=== PATIENT | male | born 1975 | race Caucasian/White ===

== ENCOUNTER 2018-04-10 07:30 | Inpatient (IN) | payer MEDICARE, MEDICAID ==
--- NOTE | 2018-03-30 17:49 | HP ---
HISTORY AND PHYSICAL: DATE OF ADMISSION/SURGERY: 04/10/18 DATE OF OFFICE VISIT: 03/28/18 SURGEON: Viviana Gutierrez MD * (DICTATED BY DEANN PAGE) PROCEDURE: Left total knee arthroplasty. CHIEF COMPLAINT: Left knee pain. HISTORY OF PRESENT ILLNESS: Mr. Blake is a 42-year-old gentleman with end- stage osteoarthritis of the left knee. He has failed conservative treatment and elected to proceed with a left total knee arthroplasty. PAST MEDICAL HISTORY: Diabetes, hypertension, rheumatoid arthritis, high cholesterol, and depression. PAST SURGICAL HISTORY: Bilateral knee arthroscopies, right ankle reconstruction , right carpal tunnel release, and bilateral ear tubes. CURRENT MEDICATIONS: 1. Enbrel SureClick. 2. Prednisone 1 mg 4 tabs in the morning, 3 tabs at night. 3. Glucosamine chondroitin. 4. Metformin 1000 mg twice a day. 5. Atenolol 50 mg twice a day. 6. Dicyclomine 20 mg 3 times a day. 7. Omeprazole 20 mg daily. 8. Simvastatin 40 mg daily. 9. Tramadol 50 mg 4 times a day as needed. 10. Lisinopril 5 mg every day. 11. Lantus 100 units as directed. 12. Calcium with vitamin D. 13. Multivitamin. 14. Gabapentin 300 mg daily. ALLERGIES: No known drug allergies. FAMILY HISTORY: Diabetes, cancer, heart disease, and rheumatoid arthritis. SOCIAL HISTORY: This is a 42-year-old gentleman. He lives alone. He is a former smoker, quit years ago. He denies the use of drugs or alcohol. REVIEW OF SYSTEMS: A complete 14-point review of systems was reviewed with the patient, was positive for diabetes and a history of MRSA infection in his right lower leg after a tattoo approximately 20 years ago. He denies a history of DVT , PE, hepatitis, HIV, or anesthesia problems. PHYSICAL EXAMINATION GENERAL: He is well developed, well nourished, in no acute distress. VITAL SIGNS: He stands 65 inches tall, weighs 170 pounds. His blood pressure is 128/80, his heart rate is 72. HEENT: Normocephalic, atraumatic. NECK: Supple. No palpable lymph nodes. PULMONARY: Lungs are clear to auscultation bilaterally. CARDIO: Regular rate and rhythm. Strong S1, S2. ABDOMEN: Soft, nontender, nondistended. MUSCULOSKELETAL: Left lower extremity: The skin is intact. There are no open wounds or abrasions. He has moderate joint effusion. He has a 15-degree valgus deformity of both knees. There is MCL laxity and his range of motion is 5 to 115 degrees of flexion. He has a 2+ dorsalis pedis pulse, intact sensation. His lower extremity muscle group strengths are intact at 5/5. NEUROLOGICAL: He is alert and oriented x3. ASSESSMENT AND PLAN: Mr. Blake is a 42-year-old gentleman with end-stage osteoarthritis of the left knee. He has failed conservative treatment and elected to proceed with a left total knee arthroplasty, which is scheduled for 04/10/[address] Gutierrez discussed the risks and benefits of the surgery at today's visit and all of his questions were answered. He will follow up with Dr. Gutierrez 2 weeks after the surgery. We will use TXA for this patient. DEANN PAGE [id number]/[facility] #: [id number]
[~2018-04-10 07:30] MED LIST: Buffered Lidocaine 0.9% SYRIN* 5 ML/SYR SYRINGE INTRADERM ONE
--- OUTSIDE RECORDS SUMMARY | 2018-04-10 08:46 | XMS REPORT ---
:1975 External Reference #:[id number] Author Organization [facility] 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 Loader Unavailable Malika Myers NP Primary Care Physician Unavailable Payers Type Date Identification Numbers Payment Provider Subscriber Medicare Primary Effective: Policy Number: Medicare Humberto Blake 1996 [id number] Group Name: Medicare [address] PayID: [id number] [place] [address] Medicaid Policy Number: [id number] Medicaid Humberto Blake Group Name: 1 1 [address] PayID: [id number] [place] [address] Problems Date Description Provider Status Onset: 07/08/2003 Rheumatoid arthritis Active Onset: 04/22/2013 Type 2 diabetes mellitus 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 Myers [employer]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 Active Onset: 05/21/2013 Hyperlipidemia Malika Myers [employer] M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 Active Onset: 05/21/2013 Essential hypertension Malika Myers, [employer] M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 Active Onset: 07/08/2003 Enthesopathy Active Onset: 05/27/2013 Osteoporosis Malika Myers, [employer] M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 Active Onset: 04/25/2016 Vesicular eczema of hands and/or Malika Myers FNP Active feet Onset: 08/04/2016 Mallet finger Geraldine Peraza PA Active Onset: 10/11/2017 Liver enzymes abnormal Malika Myers [employer] M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 Active Note: Lab: 10/09/17 - Comp Metabolic Panel Onset: 12/24/2017 Anabolic steroids adverse reaction Malika Myers FNP Active Note: self treating with testosterone Onset: 01/01/2018 Inflammatory disorder of penis Layne Wetzel M.D. Active Onset: 11/20/2017 Cellulitis and abscess of trunk Layne Wetzel M.D. 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 Cigarette Use Quit ETOH Use Rarely consumes alcohol Smoking Patient is a former smoker Recreational Drug Use Denies Drug Use Smoking Quit 2009 Allergies, Adverse Reactions, Alerts Date Description Reaction Status Severity Comments 12/12/2014 NKDA active Medications Medication Date Status Form Strength Qnty SIG Indications Ordering Provider BD Pen 01/01/ Active 5mm 100un Use With Lucia, Needle/Mini/Ult 2018 its Lantus Jenniferl rafine/31G X Insulin FLAKITA cuevasP 09/29" 31G X Atenolol 06/12/ Active Tablets 25mg 180ta 2 by mouth Lucia, 2016 bs every day Carolinaniferl FLAKITA cuevasP Accu-Chek 07/27/ Active Misc 102un use twice Lucia Fastclix 2016 its daily Jenniferl Lancets FLAKITA cuevasP BD Pen 07/08/ Active Misc 31G X 5 100un use with Closmin, Needle/Mini/Ult 2015 mm its lantus Jenniferl rafine/31G X insulin eigh, [employer] M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 09/29" Lantus Solostar 12/03/ Active Solution 100Unit/M 9000u 6 units in Jimmy2013 Pen-Inject L nits am Jenniferl faith [employer] M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 Simvastatin 05/01/ Active Tablets 40mg 90tab Take 1 E78.2 Lucia2012 s Tablet By Jenniferl Mouth Every eigh, [employer] M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 Day Metformin HCL 05/01/ Active Tablets 1000mg 180ta 1 By Mouth E11.9 Cl , 2012 bs Twice A Day Jenniferl eigh, [employer] M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 Tramadol HCL / Active Tablets 50mg 60tab 1/2 to 1 M06.9 Clune, s tablet as Jenniferl needed for eigh, [employer] M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 pain by mouth every 6 hours Reference #: [id number] Cinnamon / Active Tablets 500mg 2 by mouth Unknown 0000 twice a day Calcium / Active Tablets 500mg 1 by mouth Unknown 0000 every day Accu-Chek Nuria / Active Strips 100un check bs Clune, Plus 0000 its 1-2 times a Jenniferl day eigh, [employer] M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 Enbrel / Active Solution 50mg/ml Adm 1 ML SC Unknown Sureclick 0000 Auto-Inject Q WK Glucosamine / Active Capsules 1500Com using OTC Unknown Chondroitin 1500 Complex Ibuprofen / Active Tablets 600mg , MD Aidan Betamethasone / Active Cream 0.1% 45uni Apply To Clune, Valerate ts Hands Twice Jenniferl Daily eigh, [employer] M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 Omeprazole / Active Capsules DR 20mg 90cap Take 1 Cl s Capsule By Jenniferl Mouth Daily eigh, [employer] M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 Gabapentin / Active Capsules 300mg 270ca 1 by mouth Cl ps three times Jenniferl a day eigh, [employer] M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 Dicyclomine HCL / Active Tablets 20mg 90tab take 1 Cl s tablet by Jenniferl mouth three eigh, [employer] M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 times daily as needed for intestinal spasm mdd 3 Prednisone / Active Tablets 1mg 3in am,3 in Clune, pm Jenniferl eigh, [employer] M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 Bactrim DS 11/20/ Hx Tablets 800-160mg 10tab 1 tab by L02.214 Damari, 2017 - s mouth twice Mahmoud, 12/01/ a day M.D. 2018 Cephalexin 11/17/ Hx Tablets 500mg 20tab one by L03.314 Lucia, 2017 - s mouth twice Jenniferl 11/27/ a day x 10 eigh, [employer]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 2018 days Betamethasone 04/25/ Hx Cream 0.1% 45gm apply to Clune, Valerate 2015 - hands twice Jenniferl 08/03/ daily eigh, [employer]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 2017 Mometasone 03/16/ Hx Suspension 50mcg/Act 17gm one spray H69.91 Lucia Furoate 2016 - each Jenniferl 03/16/ nostril eigh, [employer]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 2016 every day - Fluticasone 03/16/ Hx Suspension 50mcg/Act 1unit 1 [place] H69.91 Lucia Propionate 2016 - s Each Jenniferl 10/24/ Nostril eigh, [employer]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 2017 Twice A Day Amoxicillin/Cla 03/04/ Hx Tablets 875-125mg 20tab one by H65.01 Lucia vulanate 2016 - s mouth twice Jenniferl Potassium 03/16/ a day x 10 eigh, [employer] M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 2016 days *in place of ciprodex ear drops* Ciprodex 03/02/ Hx Suspension 0.3-0.1% QS 4 drops in H65.01 Lucia, 2016 - the right Jenniferl 03/04/ ear four eigh, [facility] 2016 times a day x 7 days Betamethasone 08/19/ Hx Ointment 0.05% 45uni apply twice Gu, Dipropionate 2015 - ts a day Kiki 12/15/ MD 2015 Accu-Chek 12/03/ Hx Misc 100un use once a Brittanie Multiclix 2013 - its day as Kiki Gracia 12/15/ needed , MD Stevens Accu-Chek Nuria 20/ Hx Kit w/Device 1unit use to test Ash Gu 2013 - s RAJWINDER Swanson 12/15/ Dx:250.00 MD Stevens Accu-Chek Nuria 20/ Hx Strips 100un check BS Brittanie Plus 2013 - its 1-2 times a Kiki 12/15/ day , MD Stevens Lisinopril 12/03/ Hx Tablets 5mg 90tab 1 By Mouth Lucia 2013 - s Every Day Jenniferl 11/13/ eigh, [employer] M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 2018 Prednisone 00/ Hx Tablets 3mg 90tab 4 mg in am Unknown 0000 - s and 3 mg at /05/ pm 2017 Leflunomide / Hx Tablets 20mg 1 po qd Unknown 0000 - 2017 Prednisone / Hx Tablets 2mg 30tab 3 po qpm Unknown 0000 - s 2017 Turmeric / Hx Capsules 500mg using over Unknown 0000 - the counter 2016 Humira Pen / Hx PNKT 40mg/0.8M Aubrey, 0000 - L Zsofia, [employer]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 2016 Azithromycin / Hx Tablets 500mg TK 1 T PO Unknown 0000 - qd For 5 Days 2016 Fluticasone / Hx Suspension 50mcg/Act Shake LQ Unknown Propionate 0000 - And U 1 SPR 05/24/ Ien bid 2016 Amoxicillin/Cla / Hx Tablets 875-125mg TK 1 T PO Unknown vulanate 0000 - bid For 10 Potassium Days In 2017 Place Of Ciprodex Ear Drops Atenolol / Hx Tablets 50mg 180ta take 1 Clune, 0000 - bs tablet by Theodore 06/12/ mouth twice eigh, [employer] M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 2017 daily Lisinopril / Hx Tablets 5mg TK 1 T PO Unknown 0000 - qd 2017 Vital Signs Date Vital Result Comment 03/21/2018 BP Systolic Sitting Left Arm 126 mmHg BP Diastolic Sitting Left Arm 84 mmHg Heart Rate 68 /min Respiratory Rate 18 /min Height 65 inches 5'5" Weight 152.12 lb BMI (Body Mass Index) 25.3 kg/m2 BSA (Body Surface Area) 1.76 m2 [place] body weight in kilograms 62 02/12/2018 BP Systolic Sitting Left Arm 126 mmHg BP Diastolic Sitting Left Arm 76 mmHg Heart Rate 80 /min Respiratory Rate 18 /min Height 65 inches 5'5" Weight 155.00 lb BMI (Body Mass Index) 25.8 kg/m2 BSA (Body Surface Area) 1.78 m2 [place] body weight in kilograms 62 01/01/2018 BP Systolic 152 mmHg BP Diastolic 89 mmHg Body Temperature 98.9 F Heart Rate 68 /min Respiratory Rate 18 /min Height 65 inches 5'5" Weight 158.00 lb BMI (Body Mass Index) 26.3 kg/m2 BSA (Body Surface Area) 1.79 m2 [place] body weight in kilograms 62 O2 % BldC Oximetry 97 % Pain Level 0 12/01/2017 BP Systolic 148 mmHg BP Diastolic 80 mmHg Body Temperature 99.7 F Heart Rate 78 /min Respiratory Rate 16 /min Height 65 inches 5'5" Weight 155.00 lb BMI (Body Mass Index) 25.8 kg/m2 BSA (Body Surface Area) 1.78 m2 [place] body weight in kilograms 62 O2 % BldC Oximetry 96 % Pain Level 0 11/23/2017 BP Systolic 126 mmHg BP Diastolic 76 mmHg Body Temperature 98.6 F Heart Rate 76 /min Respiratory Rate 18 /min Height 65 inches 5'5" [place] body weight in kilograms 62 O2 % BldC Oximetry 97 % Pain Level 4 11/20/2017 BP Systolic 146 mmHg BP Diastolic 84 mmHg Body Temperature 98.2 F Heart Rate 65 /min Respiratory Rate 14 /min Height 65 inches 5'5" Weight 159.00 lb BMI (Body Mass Index) 26.5 kg/m2 BSA (Body Surface Area) 1.79 m2 [place] body weight in kilograms 62 O2 % BldC Oximetry 97 % Pain Level 6 penile wound 11/20/2017 Body Temperature 98.2 F Weight 159.00 lb 11/17/2017 BP Systolic Sitting Left Arm 118 mmHg BP Diastolic Sitting Left Arm 76 mmHg Heart Rate 78 /min Respiratory Rate 18 /min Height 65.5 inches 5'5.50" Weight 158.00 lb BMI (Body Mass Index) 25.9 kg/m2 BSA (Body Surface Area) 1.80 m2 [place] body weight in kilograms 63 11/13/2017 BP Systolic Sitting Left Arm 122 mmHg BP Diastolic Sitting Left Arm 76 mmHg Heart Rate 80 /min Respiratory Rate 18 /min Height 65.5 inches 5'5.50" Weight 163.00 lb BMI (Body Mass Index) 26.7 kg/m2 BSA (Body Surface Area) 1.82 m2 [place] body weight in kilograms 63 05/24/2017 BP Systolic 122 mmHg BP Diastolic 78 mmHg Body Temperature 97.0 F Heart Rate 73 /min Height 65.5 inches 5'5.50" Weight 170.00 lb BMI (Body Mass Index) 27.9 kg/m2 BSA (Body Surface Area) 1.86 m2 [place] body weight in kilograms 63 O2 % BldC Oximetry 96 % 11/21/2016 BP Systolic Sitting Right Arm 120 mmHg BP Diastolic Sitting Right Arm 78 mmHg Heart Rate 72 /min Height 65.5 inches 5'5.50" Weight 177.25 lb BMI (Body Mass Index) 29.0 kg/m2 BSA (Body Surface Area) 1.89 m2 08/04/2016 BP Systolic Sitting Right Arm 146 mmHg BP Diastolic Sitting Right Arm 90 mmHg Heart Rate 66 /min Height 65.5 inches 5'5.50" Weight 174.00 lb BMI (Body Mass Index) 28.5 kg/m2 BSA (Body Surface Area) 1.88 m2 [place] body weight in kilograms 63 08/02/2016 BP Systolic Sitting Left Arm 126 mmHg BP Diastolic Sitting Left Arm 74 mmHg Body Temperature 97.6 F Heart Rate 76 /min Respiratory Rate 18 /min Height 65 inches 5'5" Weight 180.00 lb BMI (Body Mass Index) 30.0 kg/m2 BSA (Body Surface Area) 1.89 m2 [place] body weight in kilograms 62 07/25/2016 BP Systolic Sitting Left Arm 114 mmHg BP Diastolic Sitting Left Arm 70 mmHg Heart Rate 80 /min Respiratory Rate 18 /min Height 65 inches 5'5" Weight 180.00 lb BMI (Body Mass Index) 30.0 kg/m2 BSA (Body Surface Area) 1.89 m2 04/25/2016 BP Systolic Sitting Right Arm 139 mmHg BP Diastolic Sitting Right Arm 78 mmHg Heart Rate 64 /min Respiratory Rate 16 /min Height 65 inches 5'5" Weight 177.00 lb BMI (Body Mass Index) 29.5 kg/m2 BSA (Body Surface Area) 1.88 m2 [place] body weight in kilograms 62 03/16/2016 BP Systolic Sitting Left Arm 122 mmHg BP Diastolic Sitting Left Arm 74 mmHg Heart Rate 75 /min Height 65 inches 5'5" Weight 176.00 lb BMI (Body Mass Index) 29.3 kg/m2 BSA (Body Surface Area) 1.87 m2 [place] body weight in kilograms 62 03/02/2016 BP Systolic Sitting Left Arm 122 mmHg BP Diastolic Sitting Left Arm 72 mmHg Body Temperature 97.1 F Heart Rate 88 /min Respiratory Rate 18 /min Height 65 inches 5'5" Weight 174.00 lb BMI (Body Mass Index) 29.0 kg/m2 BSA (Body Surface Area) 1.86 m2 [place] body weight in kilograms 62 01/22/2016 BP Systolic Sitting Left Arm 118 mmHg BP Diastolic Sitting Left Arm 72 mmHg Heart Rate 76 /min Respiratory Rate 18 /min Height 65 inches 5'5" Weight 171.00 lb BMI (Body Mass Index) 28.5 kg/m2 BSA (Body Surface Area) 1.85 m2 [place] body weight in kilograms 62 01/06/2016 BP Systolic Sitting Left Arm 118 mmHg BP Diastolic Sitting Left Arm 76 mmHg Height 65 inches 5'5" Weight 173.00 lb BMI (Body Mass Index) 28.8 kg/m2 BSA (Body Surface Area) 1.86 m2 04/14/2015 BP Systolic Sitting Left Arm 108 mmHg BP Diastolic Sitting Left Arm 64 mmHg Heart Rate 76 /min Respiratory Rate 19 /min Height 65 inches 5'5" Weight 182.00 lb BMI (Body Mass Index) 30.3 kg/m2 BSA (Body Surface Area) 1.90 m2 12/15/2014 Heart Rate 75 /min Height 65 inches 5'5" Weight 184.00 lb BMI (Body Mass Index) 30.6 kg/m2 BSA (Body Surface Area) 1.91 m2 12/12/2014 BP Systolic Sitting Left Arm 128 mmHg BP Diastolic Sitting Left Arm 74 mmHg Heart Rate 68 /min Respiratory Rate 18 /min Height 65 inches 5'5" Weight 184.00 lb BMI (Body Mass Index) 30.6 kg/m2 BSA (Body Surface Area) 1.91 m2 09/16/2014 BP Systolic 126 mmHg BP Diastolic 80 mmHg Heart Rate 64 /min Respiratory Rate 18 /min Height 65 inches 5'5" Weight 187.00 lb 08/19/2014 BP Systolic 118 mmHg BP Diastolic 72 mmHg Heart Rate 68 /min Respiratory Rate 19 /min Height 65 inches 5'5" Weight 188.00 lb 06/17/2014 BP Systolic 130 mmHg BP Diastolic 90 mmHg Heart Rate 72 /min Height 65 inches 5'5" Weight 187.00 lb 04/14/2014 BP Systolic 118 mmHg BP Diastolic 70 mmHg Heart Rate 68 /min Height 65 inches 5'5" Weight 184.00 lb 03/12/2014 BP Systolic 104 mmHg BP Diastolic 70 mmHg Heart Rate 88 /min Height 65 inches 5'5" Weight 185.00 lb 01/27/2014 BP Systolic 124 mmHg BP Diastolic 80 mmHg Heart Rate 72 /min Height 65 inches 5'5" Weight 184.00 lb 01/07/2014 Height 65 inches 5'5" Weight 180.00 lb 01/01/2014 BP Systolic 130 mmHg BP Diastolic 92 mmHg Heart Rate 80 /min Height 65 inches 5'5" Weight 181.00 lb 12/03/2013 BP Systolic 124 mmHg BP Diastolic 68 mmHg Heart Rate 68 /min Height 65 inches 5'5" Weight 176.00 lb 11/27/2013 Height 65 inches 5'5" Weight 180.00 lb 11/05/2013 Height 65 inches 5'5" Weight 180.00 lb 10/29/2013 BP Systolic 112 mmHg BP Diastolic 78 mmHg Height 65 inches 5'5" Weight 182.00 lb 10/07/2013 BP Systolic 118 mmHg BP Diastolic 76 mmHg Height 65 inches 5'5" Weight 179.00 lb 07/08/2013 BP Systolic 128 mmHg BP Diastolic 76 mmHg Height 65 inches 5'5" Weight 187.00 lb 05/27/2013 BP Systolic 118 mmHg BP Diastolic 73 mmHg Height 65 inches 5'5" Weight 182.00 lb 04/22/2013 BP Systolic 130 mmHg BP Diastolic 84 mmHg Heart Rate 80 /min Respiratory Rate 18 /min Height 65 inches 5'5" Weight 179.00 lb Results Test Date Test Result H/L Range Note Urinalysis Profile 03/28/2018 Urine Color Yellow Urine Appearance Clear Urine Specific Plaza 1.011 1.010-1.030 Urine pH 7.0 5-9 Urine Urobilinogen Negative Negative Urine Ketones Negative Negative Urine Protein Negative Negative Urine Leukocytes Negative Negative Urine Blood Negative Negative Urine Nitrite Negative Negative Urine Bilirubin Negative Negative Urine Glucose Negative Negative Inr/Protime 03/28/2018 Inr 0.92 0.77-1.02 Laboratory test finding 03/28/2018 Activated Partial 35.5 seconds 26.0- 36.3 Thrombo Time Type & Screen 03/28/2018 Patient Blood Type B Positive Antibody Screen NEGATIVE Urine Culture And 03/28/2018 Urine Culture SEE RESULT BELOW 1 Sensitivities Comp Metabolic Panel 03/26/2018 Sodium 141 mmol/L 135-145 Potassium 4.7 mmol/L 3.5-5.0 Chloride 102 mmol/L 101-111 Co2 Carbon Dioxide 33 mmol/L High 22-32 Anion Gap 6 mmol/L 2-11 Glucose 102 mg/dL High 70-100 Blood Urea Nitrogen 19 mg/dL 6-24 Creatinine 0.95 mg/dL 0.67-1.17 BUN/Creatinine Ratio 20.0 8-20 Calcium 9.5 mg/dL 8.6-10.3 Total Protein 6.5 g/dL 6.4-8.9 Albumin 4.4 g/dL 3.2-5.2 Globulin 2.1 g/dL 2-4 Albumin/Globulin Ratio 2.1 1-3 Total Bilirubin 0.30 mg/dL 0.2-1.0 Alkaline Phosphatase 55 U/L 34-104 Alt 29 U/L 7-52 Ast 21 U/L 13-39 Egfr Non- 86.5 >60 Egfr 104.7 >60 2 Laboratory test finding 03/26/2018 C Reactive Protein < 1.00 mg/L <8.01 CBC Auto Diff 03/26/2018 White Blood Count 9.2 10^3/uL 3.5-10.8 Red Blood Count 6.07 10^6/uL High 4.00-5.40 Hemoglobin 16.0 g/dL 14.0-18.0 Hematocrit 48 % 42-52 Mean Corpuscular Volume 79 fL Low 80-94 Mean Corpuscular Hemoglobin 26 pg Low 27-31 Mean Corpuscular HGB Conc 33 g/dL 31-36 Red Cell Distribution Width 16 % High 10.5-15 Platelet Count 171 10^3/uL 150-450 Mean Platelet Volume 10.5 um3 High 7.4-10.4 Abs Neutrophils 4.0 10^3/uL 1.5-7.7 Abs Lymphocytes 3.6 10^3/uL 1.0-4.8 Abs Monocytes 0.9 10^3/uL High 0-0.8 Abs Eosinophils 0.7 10^3/uL High 0-0.6 Abs Basophils 0 10^3/uL 0-0.2 Abs Nucleated RBC 0 10^3/uL Granulocyte % 43.1 % 38-83 Lymphocyte % 39.4 % 25-47 Monocyte % 10.0 % High 0-7 Eosinophil % 7.3 % High 0-6 Basophil % 0.2 % 0-2 Nucleated Red Blood Cells % 0.1 Laboratory test finding 03/26/2018 Erythrocyte Sed Rate 1 mm/Hr 0-14 Urine Dipstick 03/21/2018 Ua Leuko - Negative Ua Nitrite - Negative Ua Urobilinogen 0.2 0.2 - 1.0 E.U./dL Ua Protein - Negative Ua PH 6 Low 6.5-7.5 Ua Blood - Negative Ua Specific Plaza 1.010 1.010-1.030 Ua Ketones - Negative Ua Bilirubin - Negative Ua Glucose - Negative Comp Metabolic Panel 02/23/2018 Sodium 142 mmol/L 135-145 Chloride 105 mmol/L 101-111 Co2 Carbon Dioxide 31 mmol/L 22-32 Glucose 105 mg/dL High 70-100 Blood Urea Nitrogen 22 mg/dL 6-24 Creatinine 1.13 mg/dL 0.67-1.17 BUN/Creatinine Ratio 19.5 8-20 Calcium 9.9 mg/dL 8.6-10.3 Total Protein 6.4 g/dL 6.4-8.9 Albumin 4.6 g/dL 3.2-5.2 Globulin 1.8 g/dL Low 2-4 Albumin/Globulin Ratio 2.6 1-3 Total Bilirubin 0.50 mg/dL 0.2-1.0 Alkaline Phosphatase 48 U/L 34-104 Alt 38 U/L 7-52 Ast 27 U/L 13-39 Egfr Non- 70.8 >60 Egfr 85.7 >60 3 Potassium 5.1 mmol/L High 3.5-5.0 Anion Gap 6 mmol/L 2-11 Laboratory test finding 02/23/2018 C Reactive Protein < 1.00 mg/L <8.01 4 CBC Auto Diff 02/23/2018 White Blood Count 9.8 10^3/uL 3.5-10.8 Red Blood Count 6.19 10^6/uL High 4.00-5.40 Hemoglobin 15.9 g/dL 14.0-18.0 Hematocrit 48 % 42-52 Mean Corpuscular Volume 78 fL Low 80-94 Mean Corpuscular Hemoglobin 26 pg Low 27-31 Mean Corpuscular HGB Conc 33 g/dL 31-36 Red Cell Distribution Width 18 % High 10.5-15 Platelet Count 190 10^3/uL 150-450 Mean Platelet Volume 10.6 um3 High 7.4-10.4 Abs Neutrophils 4.9 10^3/uL 1.5-7.7 Abs Lymphocytes 2.8 10^3/uL 1.0-4.8 Abs Monocytes 1.2 10^3/uL High 0-0.8 Abs Eosinophils 0.7 10^3/uL High 0-0.6 Abs Basophils 0.1 10^3/uL 0-0.2 Abs Nucleated RBC 0 10^3/uL Granulocyte % 50.7 % 38-83 Lymphocyte % 28.6 % 25-47 Monocyte % 12.2 % High 0-7 Eosinophil % 7.2 % High 0-6 Basophil % 1.3 % 0-2 Nucleated Red Blood Cells % 0 Laboratory test finding 02/23/2018 Erythrocyte Sed Rate 1 mm/Hr 0-14 5 Urine Dipstick 02/12/2018 Ua PH 6 Low 6.5-7.[address] 1.010 1.010-1.030 Glycohemoglobin A1c 02/12/2018 Glycohemoglobin (A1c) 6.5 % High 4.2-6.3 6 , 7 eAG 140 mg/dL 6 Laboratory test finding 01/05/2018 Erythrocyte Sed Rate 3 mm/Hr 0-14 CBC Auto Diff 01/05/2018 White Blood Count 9.4 10^3/uL 3.5-10.8 Red Blood Count 6.40 10^6/uL High 4.00-5.40 Hemoglobin 15.4 g/dL 14.0-18.0 Hematocrit 48 % 42-52 Mean Corpuscular Volume 75 fL Low 80-94 Mean Corpuscular Hemoglobin 24 pg Low 27-31 Mean Corpuscular HGB Conc 32 g/dL 31-36 Red Cell Distribution Width 19 % High 10.5-15 Platelet Count 189 10^3/uL 150-450 Mean Platelet Volume 10.6 um3 High 7.4-10.4 Abs Neutrophils 4.2 10^3/uL 1.5-7.7 Abs Lymphocytes 3.4 10^3/uL 1.0-4.8 Abs Monocytes 1.2 10^3/uL High 0-0.8 Abs Eosinophils 0.6 10^3/uL 0-0.6 Abs Basophils 0.1 10^3/uL 0-0.2 Abs Nucleated RBC 0 10^3/uL Granulocyte % 44.2 % 38-83 Lymphocyte % 35.7 % 25-47 Monocyte % 12.4 % High 0-7 Eosinophil % 6.4 % High 0-6 Basophil % 1.3 % 0-2 Nucleated Red Blood Cells % 0 Laboratory test finding 01/05/2018 C Reactive Protein < 1.00 mg/L <8.01 Comp Metabolic Panel 01/05/2018 Sodium 141 mmol/L 135-145 Potassium 4.7 mmol/L 3.5-5.0 Chloride 104 mmol/L 101-111 Co2 Carbon Dioxide 30 mmol/L 22-32 Anion Gap 7 mmol/L 2-11 Glucose 102 mg/dL High 70-100 Blood Urea Nitrogen 22 mg/dL 6-24 Creatinine 1.00 mg/dL 0.67-1.17 BUN/Creatinine Ratio 22.0 High 8-20 Calcium 9.7 mg/dL 8.6-10.3 Total Protein 6.3 g/dL Low 6.4-8.9 Albumin 4.4 g/dL 3.2-5.2 Globulin 1.9 g/dL Low 2-4 Albumin/Globulin Ratio 2.3 1-3 Total Bilirubin 0.50 mg/dL 0.2-1.0 Alkaline Phosphatase 59 U/L 34-104 Alt 43 U/L 7-52 Ast 31 U/L 13-39 Egfr Non- 81.6 >60 Egfr 98.7 >60 8 Testosterone Free & Total 01/05/2018 Free Testosterone ng/dl 31.8 ng/dL 4.46-17.1 9 Testosterone 815 ng/dL 240-950 10 Laboratory test 01/05/2018 Hemoglobin A1c 7.2 % High 4.0-5.6 11 finding (Glyco HGB) Routine Culture W/ 11/20/2017 Gram Stain MODERATE EPITHEL 12, 13 Gram Stain <SEE NOTE> Gram Stain FEW GRAM POSITIV <SEE NOTE> 12, 14 Gram Stain RARE WHITE BLOOD <SEE NOTE> 12, 15 Aerobic Culture MIXED SKIN FAMILIA 12, 16 Quantity MODERATE 12 Ua RFX Micro & Culture II 11/19/2017 Urine Color YELLOW Yellow 17 Urine Clarity CLEAR Clear 17 Urine Glucose - Dipstick NEGATIVE mg/dL Negative 17 Urine Bilirubin - Dipstick NEGATIVE Negative 17 Urine Ketone NEGATIVE mg/dL Negative [address] 1.010 1.010-1.030 17 Urine Blood NEGATIVE Negative 17 Urine PH 6.5 6.5-7.5 17 Urine Protein - Dipstick NEGATIVE mg/dL Negative 17 Urine Urobilinogen - Dipstick 0.2 E.U./dL 0.2-1.0 17 Urine Nitrite - Dipstick NEGATIVE Negative 17 Urine Leuk Esterase NEGATIVE Negative 17 Source: URINE, CLEAN CAT <SEE NOTE> 17, 18 Blood Culture 11/19/2017 Blood Culture Aerobic NO GROWTH: FINAL <SEE NOTE> 17, 19 Blood Culture Anaerobic NO GROWTH: FINAL <SEE NOTE> 17, 20 Comprehensive Metabolic Panel 11/19/2017 Glucose 166 mg/dL High 74-106 17 BUN 20 mg/dL High 7-18 17 Creatinine 1.0 mg/dL 0.6-1.3 17 Glom Filtration Rate, Estimate >60 mL/min >60 17 If >60 mL/min >60 17, 21 BUN/Creat 20.0 ratio 17 Sodium 137 mmol/L 136-145 17 Potassium 4.1 mmol/L 3.5-5.1 17 Chloride 105 mmol/L 98-107 17 Carbon Dioxide 26 mmol/L 21-32 17 Anion Gap 6 mEq/L Low 8-16 17 Calcium 8.8 mg/dL 8.5-10.1 17 Total Protein 7.1 g/dL 6.4-8.2 17 Albumin 3.6 g/dL 3.4-5.0 17 Globulin 3.5 g/dL 1.9-4.3 17 Alb/Glob 1.0 ratio 17 Bilirubin,Total 0.3 mg/dL 0.2-1.0 17 Sgot/Ast 34 U/L 15-37 17 SGPT/Alt 89 U/L High 12-78 17 Alkaline Phosphatase 68 U/L 45-117 17 Lactic Acid 11/19/2017 Lactic Acid 1.7 mmol/L 0.4-1.9 17 Lab Reflex >2.0 for Sepsis? Y 17 CBS W/Automated Diff 11/19/2017 White Blood Count 10.0 K/uL 3.4-10.5 17 Red Blood Count 6.24 M/uL High 4.20-5.80 17 Hemoglobin 14.6 gm/dL 12.8-17.0 17 Hematocrit 45.1 % 38.0-48.0 17 Mean Cell Volume 72.3 fl Low 80.0-96.0 17 Mean Corpuscular HGB 23.4 pg Low 27.0-33.0 17 Mean Corpuscular HGB Conc 32.4 g/dL 31.7-36.0 17 Platelet Count 236 K/uL 155-360 17 Red Cell Distri Width SD 46.0 fl 36-51 17 Red Cell Distri Width %CV 18.7 % High 11.6-15.8 17 Mean Platelet Volume 12.2 fL High 6.6-10.6 17 Neut% 54.2 % 33.0-73.0 17 Lymph % 27.5 % 20.0-42.0 17 [place] % 12.9 % High 0.0-10.0 17 Eo% 4.3 % 0.0-6.6 17 Bas% 1.1 % 0.0-1.1 17 Neut# 5.44 K/uL 1.8-7.0 17 Lymph # 2.76 K/uL 1.0-4.0 17 [place] # 1.30 K/uL High 0.0-0.8 17 Eos # 0.43 K/uL 0.0-0.5 17 Baso # 0.11 K/uL High 0.0-0.1 17 Laboratory test finding 11/19/2017 Slide Review DIFF ORDERED 17 Differential-WBC Confirm 11/19/2017 Total Cells Counted 100 #CELLS 17 Band% 7 % 0-8 17 Neutrophils% 51 % 33-73 17 Lymph% 24 % 20-42 17 Monocyte% 13 % High 0-10 17 Eosinophil% 3 % 0-5 17 Basophil% 2 % 0-2 17 Platelet Estimate NORMAL 17 Anisocytosis 0-1+ 17 Microcytosis 1+ 17 Ovalocytes 0-1+ 17 Blood Culture 11/19/2017 Blood Culture Aerobic NO GROWTH: FINAL <SEE NOTE> 17, 22 Blood Culture Anaerobic NO GROWTH: FINAL <SEE NOTE> 17, 23 Chlamydia/GC Cyndie, Urine 11/13/2017 Chlamydia Trachomatis,Ur Negative Negative 24 -PCR Neisseria Gonorrhoeae,Ur -PCR Negative Negative 24, 25 Testosterone,Free/Weakly 11/13/2017 Testosterone,Serum >1500 High [id number] 24, 26 Bound ng/dL Testosterone,%Free/Weakly BND 73.2 % High 9.0-46.0 24, 27 Testosterone,Free Weakly Bound (SEE NOTE) ng/dL 40.0-250.0 24, 28 Glycohemoglobin A1c 11/13/2017 Glycohemoglobin (A1c) 7.4 % High 4.2-6.3 24, 29 eAG 166 mg/dL 24 Laboratory test finding 11/07/2017 Erythrocyte Sed Rate 3 mm/Hr 0-14 30 Pathologist Review (SEE NOTE) 31 Manual Differential 11/07/2017 Immature Granulocytes 6 % 0-9 Neutrophil % 47 % 38-83 Band % 6 % 0-8 Lymphocytes % 23 % Low 25-47 Monocytes % 20 % High 0-7 Eosinophils % 2 % 0-6 Basophil % 1 % 0-2 Reactive Lymph % 1 % 0-6 Abs Neutrophils 3.7 10^3/uL 1.5-7.7 Abs Lymphocytes 1.8 10^3/uL 1.0-4.8 Abs Monocytes 1.6 10^3/uL High 0-0.8 Abs Eosinophils 0.2 10^3/uL 0-0.6 Abs Basophils 0.1 10^3/uL 0-0.2 Technical Review Performed By [id number] RBC Morphology Normal Normal CBC Auto Diff 11/07/2017 White Blood Count 7.6 10^3/uL 3.5-10.8 Red Blood Count 6.18 10^6/uL High 4.0-5.4 Hemoglobin 14.6 g/dL 14.0-18.0 Hematocrit 45 % 42-52 Mean Corpuscular Volume 73 fL Low 80-94 32 Mean Corpuscular Hemoglobin 24 pg Low 27-31 Mean Corpuscular HGB Conc 32 g/dL 31-36 Red Cell Distribution Width 18 % High 10.5-15 Abs Neutrophils 4.1 10^3/uL 1.5-7.7 Abs Lymphocytes 1.7 10^3/uL 1.0-4.8 Abs Monocytes 1.3 10^3/uL High 0-0.8 Abs Eosinophils 0.4 10^3/uL 0-0.6 Abs Basophils 0.1 10^3/uL 0-0.2 Abs Nucleated RBC 0 10^3/uL Giant Platelets Present Platelet Count 142 10^3/uL Low 150-450 Mean Platelet Volume 11.5 um3 High 7.4-10.4 Laboratory test finding 11/07/2017 C Reactive Protein 7.91 mg/L High < 5.00 33 Comp Metabolic Panel 11/07/2017 Sodium 136 mmol/L Low 139-145 Potassium 4.2 mmol/L 3.5-5.0 Chloride 101 mmol/L 101-111 Co2 Carbon Dioxide 25 mmol/L 22-32 Anion Gap 10 mmol/L 2-11 Glucose 281 mg/dL High 70-100 Blood Urea Nitrogen 23 mg/dL 6-24 Creatinine 0.99 mg/dL 0.67-1.17 BUN/Creatinine Ratio 23.2 High 8-20 Calcium 9.2 mg/dL 8.6-10.3 Total Protein 6.6 g/dL 6.4-8.9 Albumin 4.4 g/dL 3.2-5.2 Globulin 2.2 g/dL 2-4 Albumin/Globulin Ratio 2.0 1-3 Total Bilirubin 0.20 mg/dL 0.2-1.0 Alkaline Phosphatase 70 U/L 34-104 Alt 88 U/L High 7-52 Ast 62 U/L High 13-39 Egfr Non- 82.5 >60 Egfr 106.1 >60 34 Comp Metabolic Panel 10/09/2017 Sodium 137 mmol/L 133-145 Potassium 4.8 mmol/L 3.5-5.0 Chloride 101 mmol/L 101-111 Co2 Carbon Dioxide 28 mmol/L 22-32 Anion Gap 8 mmol/L 2-11 Glucose 143 mg/dL High 70-100 Blood Urea Nitrogen 14 mg/dL 6-24 Creatinine 0.91 mg/dL 0.67-1.17 BUN/Creatinine Ratio 15.4 8-20 Calcium 9.7 mg/dL 8.6-10.3 Total Protein 6.6 g/dL 6.4-8.9 Albumin 4.5 g/dL 3.2-5.2 Globulin 2.1 g/dL 2-4 Albumin/Globulin Ratio 2.1 1-3 Total Bilirubin 0.40 mg/dL 0.2-1.0 Alkaline Phosphatase 47 U/L 34-104 Alt 60 U/L High 7-52 Ast 44 U/L High 13-39 Egfr Non- 90.9 >60 Egfr 116.9 >60 35 Liver Function Panel 10/09/2017 Direct Bilirubin 0.10 mg/dL 0.03-0.18 Indirect Bilirubin 0.3 mg/dL 0.3-1.0 Iron & Iron Binding Capacity 10/09/2017 Iron 40 g/dL Low 50-212 Unsaturated Iron Binding 457 g/dL Total Iron Binding Capacity 497 g/dL High 250-450 Transferrin 355 mg/dL 203-362 % Iron Saturation 8 % Low 15-55 CBC Auto Diff 10/09/2017 White Blood Count 12.7 10^3/uL High 3.5-10.8 Red Blood Count 5.91 10^6/uL High 4.0-5.4 Hemoglobin 14.0 g/dL 14.0-18.0 Hematocrit 44 % 42-52 Mean Corpuscular Volume 74 fL Low 80-94 Mean Corpuscular Hemoglobin 24 pg Low 27-31 Mean Corpuscular HGB Conc 32 g/dL 31-36 Red Cell Distribution Width 19 % High 10.5-15 Platelet Count 206 10^3/uL 150-450 Mean Platelet Volume 10.4 um3 7.4-10.4 Giant Platelets Present Abs Neutrophils 8.9 10^3/uL High 1.5-7.7 Abs Lymphocytes 1.9 10^3/uL 1.0-4.8 Abs Monocytes 1.3 10^3/uL High 0-0.8 Abs Eosinophils 0.4 10^3/uL 0-0.6 Abs Basophils 0.2 10^3/uL 0-0.2 Abs Nucleated RBC 0 10^3/uL Granulocyte % 70.2 % 38-83 Lymphocyte % 14.9 % Low 25-47 Monocyte % 10.2 % High 0-7 Eosinophil % 3.5 % 0-6 Basophil % 1.2 % 0-2 Nucleated Red Blood Cells % 0 LDL Cholesterol Profile 05/24/2017 Cholesterol 149 mg/dL <200 36, 37 Triglycerides 163 mg/dL High <150 36, 38 HDL Cholesterol 37 mg/dL Low >40 36, 39 LDL-Cholesterol 79 mg/dL < 100 36, 40 Microalbumin,Random Urine 05/24/2017 Microalbumin,Urine < 5.0 mg/L < 20.0 36 Glycohemoglobin A1c 05/24/2017 Glycohemoglobin (A1c) 5.6 % 4.2-6.3 36, 41 eAG 114 mg/dL 36 Glycohemoglobin A1c 11/21/2016 Glycohemoglobin (A1c) 6.9 % High 4.2-6.3 42, 43 eAG 151 mg/dL 42 Quantiferon Gold TB 10/12/2016 M tuberculosis by Quantiferon Negative Negative 44 TB Ag minus Nil Result 0 IU/mL TB Mitogen minus Nil Result > 10.00 IU/mL TB Nil Result 0.02 IU/mL 45 Laboratory test finding 10/10/2016 Hepatitis B Surface Nonreactive Nonreactive 46 Antigen Hepatitis A AB IgM Nonreactive Nonreactive 47 Hepatitis C Antibody Nonreactive Nonreactive 48 Hepatitis B Core IgM Nonreactive Nonreactive 49 Quantiferon Gold TB 10/10/2016 M tuberculosis by Quantiferon TNP () 50 TB Ag minus Nil Result TNP () 51 TB Mitogen minus Nil Result TNP () 52 TB Nil Result TNP () 53 Estimated Average 07/25/2016 Estimated Average 163 Glucose (eAG) Glucose (eAG) Laboratory test finding 07/25/2016 Hemoglobin A1c 7.3 High 4.2-6.3 Glycohemoglobin A1c 07/25/2016 Glycohemoglobin (A1c) 7.3 % High 4.2-6.3 42, 54 eAG 163 mg/dL 42 Glycohemoglobin A1c 04/25/2016 Glycohemoglobin (A1c) 7.2 % High 4.2-6.3 42, 55 eAG 160 mg/dL 42 @[facility] Pat Id: [id number] 42 @[facility] Req #: [id number] Microalbumin,Random Urine 04/25/2016 Microalbumin,Urine < 5.0 mg/L < 20.0 42 @[facility] Pat Id: [id number] [address] Req #: [id number] 42 Basic Metabolic Panel 01/06/2016 Glucose 212 mg/dL High 74-106 BUN 19 mg/dL High 7-18 Creatinine 1.2 mg/dL 0.6-1.3 Glom Filtration Rate, Estimate >60 mL/min >60 If >60 mL/min >60 56 BUN/Creat 15.8 ratio Sodium 135 mmol/L Low 136-145 Potassium 4.4 mmol/L 3.5-5.1 Chloride 103 mmol/L 98-107 Carbon Dioxide 24 mmol/L 21-32 Anion Gap 8 mEq/L 8-16 Calcium 8.7 mg/dL 8.5-10.1 Glycohemoglobin A1c 01/06/2016 Glycohemoglobin (A1c) 7.7 % High 4.2-6.3 57 eAG 174 mg/dL LDL Cholesterol Profile 01/06/2016 Cholesterol 182 mg/dL 150-200 58 Triglycerides 235 mg/dL High 50-150 59 HDL Cholesterol 39 mg/dL Low 60-150 60 LDL-Cholesterol 96 mg/dL 75-100 61 Liver Function Tests 01/06/2016 Total Protein 7.5 g/dL 6.4-8.2 Albumin 3.8 g/dL 3.4-5.0 Globulin 3.7 g/dL 1.9-4.3 Alb/Glob 1.0 ratio Bilirubin,Total 0.2 mg/dL 0.2-1.0 Bilirubin,Direct < 0.1 mg/dL 0.0-0.2 Bilirubin,Indirect 0.1 mg/dL 0.0-0.9 Sgot/Ast 14 U/L Low 15-37 62 SGPT/Alt 32 U/L 12-78 Alkaline Phosphatase 78 U/L 45-117 Comp Metabolic Panel 05/07/2015 Sodium 140 mmol/L 133-145 Potassium 4.2 mmol/L 3.5-5.0 Chloride 102 mmol/L 101-111 Co2 Carbon Dioxide 29 mmol/L 22-32 Anion Gap 9 mmol/L 2-11 Glucose 137 mg/dL High 70-100 Blood Urea Nitrogen 11 mg/dL 6-24 Creatinine 0.70 mg/dL 0.67-1.17 BUN/Creatinine Ratio 15.7 8-20 Calcium 9.8 mg/dL 8.6-10.3 Total Protein 6.6 g/dL 6.4-8.9 Albumin 4.2 g/dL 3.2-5.2 Globulin 2.4 g/dL 2-4 Albumin/Globulin Ratio 1.8 1-3 Total Bilirubin 0.40 mg/dL 0.2-1.0 Alkaline Phosphatase 77 U/L 34-104 Alt 22 U/L 7-52 Ast 20 U/L 13-39 Egfr Non- 124.9 >60 Egfr 160.6 >60 63 Laboratory test finding 05/07/2015 C Reactive Protein 18.99 mg/L High < 5.00 64 CBC Auto Diff 05/07/2015 White Blood Count 15.1 10^3/uL High 4.8-10.8 Red Blood Count 5.53 10^6/uL High 4.0-5.4 Hemoglobin 13.5 g/dL Low 14.0-18.0 Hematocrit 43 % 42-52 Mean Corpuscular Volume 78 fL Low 80-94 Mean Corpuscular Hemoglobin 24 pg Low 27-31 Mean Corpuscular HGB Conc 31 g/dL 31-36 Red Cell Distribution Width 16 % High 10.5-15 Platelet Count 289 10^3/uL 150-450 Mean Platelet Volume 10 um3 7.4-10.4 Abs Neutrophils 11.0 10^3/uL High 1.5-7.7 Abs Lymphocytes 2.1 10^3/uL 1.0-4.8 Abs Monocytes 1.5 10^3/uL High 0-0.8 Abs Eosinophils 0.4 10^3/uL 0-0.6 Abs Basophils 0.1 10^3/uL 0-0.2 Abs Nucleated RBC 0.01 10^3/uL Granulocyte % 72.8 % 38-83 Lymphocyte % 13.6 % Low 25-47 Monocyte % 10.1 % High 1-9 Eosinophil % 2.7 % 0-6 Basophil % 0.8 % 0-2 Nucleated Red Blood Cells % 0.1 Laboratory test finding 05/07/2015 Erythrocyte Sed Rate 22 mm/Hr High 0- 14 Basic Metabolic Panel 04/14/2015 Glucose 137 mg/dL High 74-106 BUN 13 mg/dL 7-18 Creatinine 0.9 mg/dL 0.6-1.3 Glom Filtration Rate, Estimate >60 mL/min >60 If >60 mL/min >60 65 BUN/Creat 14.4 ratio Sodium 137 mmol/L 136-145 Potassium 4.3 mmol/L 3.5-5.1 Chloride 103 mmol/L 98-107 Carbon Dioxide 27 mmol/L 21-32 Anion Gap 7 mEq/L Low 8-16 Calcium 9.2 mg/dL 8.5-10.1 Glycohemoglobin A1c 04/14/2015 Glycohemoglobin (A1c) 8.2 % High 4.2-6.3 66 eAG 189 mg/dL Laboratory test finding 03/16/2015 C Reactive Protein 19.81 mg/L High < 5.00 67 CBC Auto Diff 03/16/2015 White Blood Count 22.3 10^3/uL High 4.8-10.8 Red Blood Count 5.56 10^6/uL High 4.0-5.4 Hemoglobin 13.8 g/dL Low 14.0-18.0 Hematocrit 43 % 42-52 Mean Corpuscular Volume 78 fL Low 80-94 Mean Corpuscular Hemoglobin 25 pg Low 27-31 Mean Corpuscular HGB Conc 32 g/dL 31-36 Red Cell Distribution Width 16 % High 10.5-15 Platelet Count 289 10^3/uL 150-450 Mean Platelet Volume 10 um3 7.4-10.4 Abs Neutrophils 17.7 10^3/uL High 1.5-7.7 Abs Lymphocytes 2.2 10^3/uL 1.0-4.8 Abs Monocytes 1.8 10^3/uL High 0-0.8 Abs Eosinophils 0.3 10^3/uL 0-0.6 Abs Basophils 0.2 10^3/uL 0-0.2 Abs Nucleated RBC 0 10^3/uL Granulocyte % 79.2 % 38-83 Lymphocyte % 10.1 % Low 25-47 Monocyte % 8.2 % 1-9 Eosinophil % 1.5 % 0-6 Basophil % 1.0 % 0-2 Nucleated Red Blood Cells % 0 Laboratory test finding 03/16/2015 Erythrocyte Sed Rate 22 mm/Hr High 0- 14 Comp Metabolic Panel 03/16/2015 Sodium 136 mmol/L 133-145 Potassium 4.4 mmol/L 3.5-5.0 Chloride 100 mmol/L Low 101-111 Co2 Carbon Dioxide 28 mmol/L 22-32 Anion Gap 8 mmol/L 2-11 Glucose 185 mg/dL High 70-100 Blood Urea Nitrogen 16 mg/dL 6-24 Creatinine 0.81 mg/dL 0.67-1.17 BUN/Creatinine Ratio 19.8 8-20 Calcium 9.7 mg/dL 8.6-10.3 Total Protein 6.7 g/dL 6.4-8.9 Albumin 4.3 g/dL 3.2-5.2 Globulin 2.4 g/dL 2-4 Albumin/Globulin Ratio 1.8 1-3 Total Bilirubin 0.20 mg/dL 0.2-1.0 Alkaline Phosphatase 70 U/L 34-104 Alt 17 U/L 7-52 Ast 13 U/L 13-39 Egfr Non- 105.5 >60 Egfr 135.7 >60 68 Laboratory test finding 12/12/2014 Vitamin D Total 25(Oh) 20.5 ng/mL Low 30-50 Hepatitis B Surface Antigen Nonreactive Nonreactive Hepatitis B Core IgM Nonreactive Nonreactive Hepatitis A AB IgM Nonreactive Nonreactive Hepatitis C Antibody Nonreactive Nonreactive Comp Metabolic Panel 12/12/2014 Sodium 138 mmol/L 133-145 Potassium 4.5 mmol/L 3.5-5.0 Chloride 102 mmol/L 101-111 Co2 Carbon Dioxide 27 mmol/L 22-32 Anion Gap 9 mmol/L 2-11 Glucose 99 mg/dL 70-100 Blood Urea Nitrogen 16 mg/dL 6-24 Creatinine 0.79 mg/dL 0.67-1.17 BUN/Creatinine Ratio 20.3 High 8-20 Calcium 9.9 mg/dL 8.6-10.3 Total Protein 6.8 g/dL 6.4-8.9 Albumin 4.5 g/dL 3.2-5.2 Globulin 2.3 g/dL 2-4 Albumin/Globulin Ratio 2.0 1-3 Total Bilirubin 0.30 mg/dL 0.2-1.0 Alkaline Phosphatase 66 U/L 34-104 Alt 17 U/L 7-52 Ast 17 U/L 13-39 Egfr Non- 108.6 >60 Egfr 139.7 >60 69 Laboratory test finding 12/12/2014 C Reactive Protein 21.83 mg/L High < 5.00 70 CBC Auto Diff 12/12/2014 White Blood Count 20.9 10^3/uL High 4.8-10.8 Red Blood Count 5.60 10^6/uL High 4.0-5.4 Hemoglobin 14.0 g/dL 14.0-18.0 Hematocrit 44 % 42-52 Mean Corpuscular Volume 78 fL Low 80-94 Mean Corpuscular Hemoglobin 25 pg Low 27-31 Mean Corpuscular HGB Conc 32 g/dL 31-36 Red Cell Distribution Width 16 % High 10.5-15 Platelet Count 248 10^3/uL 150-450 Mean Platelet Volume 11 um3 High 7.4-10.4 Abs Neutrophils 16.3 10^3/uL High 1.5-7.7 Abs Lymphocytes 2.1 10^3/uL 1.0-4.8 Abs Monocytes 1.8 10^3/uL High 0-0.8 Abs Eosinophils 0.5 10^3/uL 0-0.6 Abs Basophils 0.3 10^3/uL High 0-0.2 Abs Nucleated RBC 0.03 10^3/uL Granulocyte % 77.7 % 38-83 Lymphocyte % 10.1 % Low 25-47 Monocyte % 8.6 % 1-9 Eosinophil % 2.3 % 0-6 Basophil % 1.3 % 0-2 Nucleated Red Blood Cells % 0.1 Laboratory test finding 12/12/2014 Erythrocyte Sed Rate 20 mm/Hr High 0- 14 Basic Metabolic Panel 12/12/2014 Glucose 145 mg/dL High 74-106 BUN 16 mg/dL 7-18 Creatinine 0.9 mg/dL 0.6-1.3 Glom Filtration Rate, Estimate >60 mL/min >60 If >60 mL/min >60 71 BUN/Creat 17.7 ratio Sodium 140 mmol/L 136-145 Potassium 4.2 mmol/L 3.5-5.1 Chloride 104 mmol/L 98-107 Carbon Dioxide 25 mmol/L 21-32 Anion Gap 11 mEq/L 8-16 Calcium 9.1 mg/dL 8.5-10.1 Glycohemoglobin A1c 12/12/2014 Glycohemoglobin (A1c) 7.4 % High 4.2-6.3 72 eAG 166 mg/dL LDL Cholesterol Profile 12/12/2014 Cholesterol 176 mg/dL 150-200 73 Triglycerides 252 mg/dL High 50-150 74 HDL Cholesterol 39 mg/dL Low 60-150 75 LDL-Cholesterol 87 mg/dL 75-100 76 Liver Function Tests 12/12/2014 Total Protein 7.4 g/dL 6.4-8.2 Albumin 3.6 g/dL 3.4-5.0 Globulin 3.8 g/dL 1.9-4.3 Alb/Glob 0.9 ratio Bilirubin,Total 0.2 mg/dL 0.2-1.0 Bilirubin,Direct < 0.1 mg/dL 0.0-0.2 Bilirubin,Indirect 0.1 mg/dL 0.0-0.9 Sgot/Ast 23 U/L 15-37 SGPT/Alt 37 U/L 12-78 Alkaline Phosphatase 81 U/L 45-117 Laboratory test finding 12/12/2014 Microalbumin,Random Urine 8.0 mg/L < 20.0 Comp Metabolic Panel 11/17/2014 Sodium 136 mmol/L 133-145 Potassium 4.1 mmol/L 3.5-5.0 Chloride 101 mmol/L 101-111 Co2 Carbon Dioxide 29 mmol/L 22-32 Anion Gap 6 mmol/L 2-11 Glucose 171 mg/dL High 70-100 Blood Urea Nitrogen 21 mg/dL 6-24 Creatinine 0.80 mg/dL 0.67-1.17 BUN/Creatinine Ratio 26.3 High 8-20 Calcium 9.4 mg/dL 8.6-10.3 Total Protein 6.4 g/dL 6.4-8.9 Albumin 4.2 g/dL 3.2-5.2 Globulin 2.2 g/dL 2-4 Albumin/Globulin Ratio 1.9 1-3 Total Bilirubin 0.30 mg/dL 0.2-1.0 Alkaline Phosphatase 64 U/L 34-104 Alt 19 U/L 7-52 Ast 18 U/L 13-39 Egfr Non- 107.1 >60 Egfr 137.7 >60 77 Laboratory test finding 11/17/2014 C Reactive Protein 20.58 mg/L High < 5.00 78 CBC Auto Diff 11/17/2014 White Blood Count 17.1 10^3/uL High 4.8-10.8 Red Blood Count 5.37 10^6/uL 4.0-5.4 Hemoglobin 13.5 g/dL Low 14.0-18.0 Hematocrit 42 % 42-52 Mean Corpuscular Volume 77 fL Low 80-94 Mean Corpuscular Hemoglobin 25 pg Low 27-31 Mean Corpuscular HGB Conc 33 g/dL 31-36 Red Cell Distribution Width 16 % High 10.5-15 Platelet Count 231 10^3/uL 150-450 Mean Platelet Volume 11 um3 High 7.4-10.4 Abs Neutrophils 11.7 10^3/uL High 1.5-7.7 Abs Lymphocytes 2.9 10^3/uL 1.0-4.8 Abs Monocytes 1.8 10^3/uL High 0-0.8 Abs Eosinophils 0.5 10^3/uL 0-0.6 Abs Basophils 0.2 10^3/uL 0-0.2 Abs Nucleated RBC 0.02 10^3/uL Granulocyte % 68.6 % 38-83 Lymphocyte % 17.1 % Low 25-47 Monocyte % 10.4 % High 1-9 Eosinophil % 2.9 % 0-6 Basophil % 1.0 % 0-2 Nucleated Red Blood Cells % 0.1 Laboratory test finding 11/17/2014 Erythrocyte Sed Rate 22 mm/Hr High 0- 14 Basic Metabolic Panel 09/16/2014 Anion Gap 8 mEq/L 8-16 BUN 14 mg/dL 7-18 BUN/Creat 17.5 ratio Calcium 9.9 mg/dL 8.5-10.1 Carbon Dioxide 29 mmol/L 21-32 Chloride 102 mmol/L 98-107 Creatinine 0.8 mg/dL 0.6-1.3 Glom Filtration Rate, Estimate >60 mL/min >60 Glucose 98 mg/dL 74-106 If >60 mL/min >60 79 Potassium 4.2 mmol/L 3.5-5.1 Sodium 139 mmol/L 136-145 Glycohemoglobin A1c 09/16/2014 Glycohemoglobin (A1c) 7.1 % High 4.2-6.3 80 eAG 157 mg/dL Basic Metabolic Panel 06/17/2014 Anion Gap 14 mEq/L 8-16 BUN 15 mg/dL 7-18 BUN/Creat 16.6 ratio Calcium 8.7 mg/dL 8.5-10.1 Carbon Dioxide 26 mmol/L 21-32 Chloride 105 mmol/L 98-107 Creatinine 0.9 mg/dL 0.6-1.3 Glom Filtration Rate, Estimate >60 mL/min >60 Glucose 89 mg/dL 74-106 If >60 mL/min >60 81 Potassium 4.0 mmol/L 3.5-5.1 Sodium 141 mmol/L 136-145 Glycohemoglobin A1c 06/17/2014 Glycohemoglobin (A1c) 7.1 % High 4.2-6.3 82 eAG 157 mg/dL LDL Cholesterol Profile 06/17/2014 Cholesterol 172 mg/dL < 200 83 HDL Cholesterol 41 mg/dL > 40 84 LDL-Cholesterol 86 mg/dL < 100 85 Triglycerides 226 mg/dL < 150 86 Liver Function Tests 06/17/2014 Alb/Glob 1.2 ratio Albumin 3.7 g/dL 3.4-5.0 Alkaline Phosphatase 83 U/L 45-117 Bilirubin,Direct < 0.1 mg/dL 0.0-0.2 Bilirubin,Indirect 0.1 mg/dL 0.0-0.9 Bilirubin,Total 0.2 mg/dL 0.2-1.0 Globulin 3.2 g/dL 1.9-4.3 SGPT/Alt 24 U/L 12-78 Sgot/Ast 15 U/L 15-37 Total Protein 6.9 g/dL 6.4-8.2 Laboratory test finding 05/19/2014 C Reactive Protein 22.49 mg/L High < 5.00 87 Erythrocyte Sed Rate 27 mm/Hr High 0-14 CBC Auto Diff 05/19/2014 Abs Basophils 0.3 10^3/uL High 0-0.2 Abs Eosinophils 0.2 10^3/uL 0-0.6 Abs Lymphocytes 2.1 10^3/uL 1.0-4.8 Abs Monocytes 1.9 10^3/uL High 0-0.8 Abs Neutrophils 15.7 10^3/uL High 1.5-7.7 Abs Nucleated RBC 0.04 10^3/uL Basophil % 1.4 % 0-2 Eosinophil % 1.1 % 0-6 Granulocyte % 77.5 % 38-83 Hematocrit 42 % 42-52 Hemoglobin 13.5 g/dL Low 14.0-18.0 Lymphocyte % 10.4 % Low 25-47 Mean Corpuscular HGB Conc 32 g/dL 31-36 Mean Corpuscular Hemoglobin 26 pg Low 27-31 Mean Corpuscular Volume 80 fL 80-94 Mean Platelet Volume 10 um3 7.4-10.4 Monocyte % 9.6 % High 1-9 Nucleated Red Blood Cells % 0.2 Platelet Count 230 10^3/uL 150-450 Red Blood Count 5.26 10^6/uL 4.0-5.4 Red Cell Distribution Width 15 % 10.5-15 White Blood Count 20.3 10^3/uL High 4.8-10.8 Comp Metabolic Panel 05/19/2014 Albumin 4.1 g/dL 3.2-5.2 Albumin/Globulin Ratio 1.8 1-3 Alkaline Phosphatase 73 U/L 34-104 Alt 17 U/L 7-52 Anion Gap 9 mmol/L 2-11 Ast 15 U/L 13-39 BUN/Creatinine Ratio 20.0 8-20 Blood Urea Nitrogen 16 mg/dL 6-24 Calcium 9.6 mg/dL 8.6-10.3 Chloride 100 mmol/L Low 101-111 Co2 Carbon Dioxide 28 mmol/L 22-32 Creatinine 0.80 mg/dL 0.67-1.17 Egfr 138.4 >60 88 Egfr Non- 107.6 >60 Globulin 2.3 g/dL 2-4 Glucose 129 mg/dL High 70-100 Potassium 4.3 mmol/L 3.5-5.0 89 Sodium 137 mmol/L 133-145 Total Bilirubin 0.30 mg/dL 0.2-1.0 Total Protein 6.4 g/dL 6.4-8.9 Laboratory test finding 03/12/2014 C Reactive Protein 26.57 mg/L High < 5.00 90 Erythrocyte Sed Rate 38 mm/Hr High 0-14 Pathologist Review (See Note) 91 CBC Auto Diff 03/12/2014 Abs Basophils 0.2 10^3/uL 0-0.2 Abs Eosinophils 0.3 10^3/uL 0-0.6 Abs Lymphocytes 2.1 10^3/uL 1.0-4.8 Abs Monocytes 1.5 10^3/uL High 0-0.8 Abs Neutrophils 13.2 10^3/uL High 1.5-7.7 Abs Nucleated RBC 0 10^3/uL Hematocrit 42 % 42-52 Hemoglobin 13.9 g/dL Low 14.0-18.0 Mean Corpuscular HGB Conc 33 g/dL 31-36 Mean Corpuscular Hemoglobin 26 pg Low 27-31 Mean Corpuscular Volume 79 fL Low 80-94 Mean Platelet Volume 10 um3 7.4-10.4 Platelet Count 246 10^3/uL 150-450 Red Blood Count 5.34 10^6/uL 4.0-5.4 Red Cell Distribution Width 16 % High 10.5-15 White Blood Count 17.2 10^3/uL High 4.8-10.8 Comp Metabolic Panel 03/12/2014 Albumin 4.2 g/dL 3.2-5.2 Albumin/Globulin Ratio 1.6 1-3 Alkaline Phosphatase 74 U/L 34-104 Alt 21 U/L 7-52 Anion Gap 8 mmol/L 2-11 Ast 14 U/L 13-39 BUN/Creatinine Ratio 31.9 High 8-20 Blood Urea Nitrogen 22 mg/dL 6-24 Calcium 9.6 mg/dL 8.6-10.3 Chloride 100 mmol/L Low 101-111 Co2 Carbon Dioxide 25 mmol/L 22-32 Creatinine 0.69 mg/dL 0.67-1.17 Egfr 164.2 >60 92 Egfr Non- 127.6 >60 Globulin 2.6 g/dL 2-4 Glucose 215 mg/dL High 70-100 Potassium 4.6 mmol/L 3.7-5.6 Sodium 133 mmol/L 133-145 Total Bilirubin 0.30 mg/dL 0.2-1.0 Total Protein 6.8 g/dL 6.4-8.9 Manual Differential 03/12/2014 Band % 2 % 0-8 Eosinophils % 2 % 0-6 Hypochromasia 1+ Lymphocytes % 12 % Low 25-47 Metamyelocytes % 2 % 0-2 Monocytes % 3 % 0-13 Myelocytes % 1 % 0-1 Neutrophil % 78 % 38-83 Laboratory test finding 03/12/2014 Hemoglobin A1c 8.7 % High Less than 6.0 93 Liver Function Tests 01/01/2014 Alb/Glob 1.1 ratio Albumin 3.8 g/dL 3.5-5.0 Alkaline Phosphatase 79 U/L 50-136 Bilirubin,Direct < 0.1 mg/dL Low 0.1-0.4 Bilirubin,Indirect 0.1 mg/dL 0.0-0.9 Bilirubin,Total 0.2 mg/dL 0.2-1.2 Globulin 3.4 g/dL 1.9-4.3 SGPT/Alt 31 U/L 30-65 Sgot/Ast 13 U/L Low 16-40 Total Protein 7.2 g/dL 6.3-8.0 LDL Cholesterol Profile 01/01/2014 Cholesterol 200 mg/dL 120-200 HDL Cholesterol 49 mg/dL 29-83 LDL-Cholesterol 107 mg/dL 62-185 Triglycerides 219 mg/dL 16-231 Glycohemoglobin A1c 01/01/2014 Glycohemoglobin (A1c) 9.0 % High 4.8-6.0 94 eAG 212 mg/dL Basic Metabolic Panel 01/01/2014 Anion Gap 10 mEq/L 8-16 BUN 22 mg/dL 5-23 BUN/Creat 27.5 ratio Calcium 9.2 mg/dL 8.5-10.1 Carbon Dioxide 27 mEq/L 18-29 Chloride 104 mmol/L 98-107 Creatinine 0.8 mg/dL 0.5-1.4 Glom Filtration Rate, Estimate >60 mL/min >60 Glucose 264 mg/dL High 76-115 If >60 mL/min >60 95 Potassium 4.1 mmol/L 3.5-5.1 Sodium 137 mmol/L 136-145 Laboratory test 10/29/2013 Microalbumin,Random Urine 10.4 mg/L 0.0-18.5 finding Glycohemoglobin A1c 10/07/2013 Glycohemoglobin (A1c) 9.5 % High 4.8-6.0 96 eAG 226 mg/dL Comp Metabolic Panel 09/26/2013 Albumin 4.6 g/dL 3.2-5.2 Albumin/Globulin Ratio 2.0 1-3 Alkaline Phosphatase 67 U/L 34-104 Alt 34 U/L 7-52 Anion Gap 8 mmol/L 2-11 Ast 22 U/L 13-39 BUN/Creatinine Ratio 26.5 High 8-20 Blood Urea Nitrogen 22 mg/dL 6-24 Calcium 9.6 mg/dL 8.6-10.3 Chloride 101 mmol/L 101-111 Co2 Carbon Dioxide 28 mmol/L 22-32 Creatinine 0.83 mg/dL 0.67-1.17 Egfr 132.6 >60 97 Egfr Non- 103.1 >60 Globulin 2.3 g/dL 2-4 Glucose 195 mg/dL High 70-100 Potassium 4.3 mmol/L 3.7-5.6 Sodium 137 mmol/L 133-145 Total Bilirubin 0.30 mg/dL 0.2-1.0 Total Protein 6.9 g/dL 6.4-8.9 CBC Auto Diff 09/26/2013 Abs Basophils 0.1 10^3/uL 0-0.2 Abs Eosinophils 0.2 10^3/uL 0-0.6 Abs Lymphocytes 2.1 10^3/uL 1.0-4.8 Abs Monocytes 1.2 10^3/uL High 0-0.8 Abs Neutrophils 13.1 10^3/uL High 1.5-7.7 Abs Nucleated RBC 0.01 10^3/uL Basophil % 0.6 % 0-2 Eosinophil % 1.1 % 0-6 Granulocyte % 78.5 % 38-83 Hematocrit 45 % 42-52 Hemoglobin 15.0 g/dL 14.0-18.0 Lymphocyte % 12.4 % Low 25-47 Mean Corpuscular HGB Conc 33 g/dL 31-36 Mean Corpuscular Hemoglobin 26 pg Low 27-31 Mean Corpuscular Volume 78 fL Low 80-94 Mean Platelet Volume 10 um3 7.4-10.4 Monocyte % 7.4 % 1-9 Nucleated Red Blood Cells % 0.1 Platelet Count 196 10^3/uL 150-450 Red Blood Count 5.79 10^6/uL High 4.0-5.4 Red Cell Distribution Width 15 % 10.5-15 White Blood Count 16.7 10^3/uL High 4.8-10.8 Laboratory test finding 09/26/2013 C Reactive Protein 9.32 mg/L High < 5.00 98 Erythrocyte Sed Rate 11 mm/Hr 0-14 Laboratory test finding 07/08/2013 Hemoglobin A1c 9.6 % High Less than 6.0 99 Vitamin D 1,25-Dihydroxy 71 pg/mL 18-64 100 Comp Metabolic Panel 07/08/2013 Albumin 4.1 g/dL 3.6-5.4 Albumin/Globulin Ratio 1.5 1-3 Alkaline Phosphatase 68 U/L 30-110 Alt 34 U/L 14-54 Anion Gap 10.0 mmol/L 2-11 Ast 24 U/L 12-42 BUN/Creatinine Ratio 30.0 High 8-20 Blood Urea Nitrogen 24 mg/dL 6-24 Calcium 9.6 mg/dL 8.1-9.9 Chloride 98 mmol/L Low 101-111 Co2 Carbon Dioxide 28.0 mmol/L 22-32 Creatinine 0.80 mg/dL 0.50-1.40 Egfr 139.1 >60 101 Egfr Non- 108.2 >60 Globulin 2.8 g/dL 2-4 Glucose 255 mg/dL High 70-100 Potassium 4.3 mmol/L 3.5-5.0 Sodium 136 mmol/L 133-145 Total Bilirubin 0.7 mg/dL 0.4-1.5 Total Protein 6.9 g/dL 6.2-8.1 Laboratory test finding 04/24/2013 Hemoglobin A1c 8.5 % High Less than 6.0 102 Comp Metabolic Panel 04/24/2013 Albumin 3.8 g/dL 3.6-5.4 Albumin/Globulin Ratio 1.8 1-3 Alkaline Phosphatase 54 U/L 30-110 Alt 27 U/L 14-54 Anion Gap 9.0 mmol/L 2-11 Ast 18 U/L 12-42 BUN/Creatinine Ratio 20.0 8-20 Blood Urea Nitrogen 16 mg/dL 6-24 Calcium 9.2 mg/dL 8.1-9.9 Chloride 98 mmol/L Low 101-111 Co2 Carbon Dioxide 29.0 mmol/L 22-32 Creatinine 0.80 mg/dL 0.50-1.40 Egfr 139.1 >60 103 Egfr Non- 108.2 >60 Globulin 2.1 g/dL 2-4 Glucose 202 mg/dL High 70-100 Potassium 4.3 mmol/L 3.5-5.0 Sodium 136 mmol/L 133-145 Total Bilirubin 0.5 mg/dL 0.4-1.5 Total Protein 5.9 g/dL Low 6.2-8.1 Lipid Profile (Trig/Chol/HDL) 04/24/2013 Cholesterol 324 mg/dL High Less than 200 Cholesterol/HDL Ratio 5.9 Average High 1-4.44 HDL Cholesterol 55 mg/dL 40-60 104 LDL Cholesterol 200.6 High Less Than 100 105 Triglycerides 342 mg/dL High 40-200 1 SEE RESULT BELOW Name: HUMBERTO BLAKE : [address]: Viviana Gutierrez MD Acct: [id number] Unit: [id number] AGE: 42 Location: PAT Re03/28/18 SEX: M Status: REG REF SPEC: [id number] CRISTIANO: 03/28/18-[address] [facility] [address]: Viviana Gutierrez MD REQ: [id number] RECD: 03/28/18 STATUS: ASHWINI DUBOIS DR: Malika Myers 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 END OF REPORT DEPARTMENT OF PATHOLOGY, [address] [place] [address] Hansel Sutton M.D. Director [facility] # [id number] 2 Because ethnic data is not always readily available, this report includes an eGFR for both -Americans and non- Americans. The National Kidney Disease Education Program (NKDEP) does not endorse the use of the MDRD equation for patients that are not between the ages of 18 and 70, are , have extremes of body size, muscle mass, or nutritional status, or are non- or non-. According to the National Kidney Foundation, irrespective of diagnosis, the stage of the disease is based on the level of kidney function: Stage Description GFR(mL/min/1.73 m(2)) 1 Kidney damage with normal or decreased GFR 90 2 Kidney damage with mild decrease in GFR 60-89 3 Moderate decrease in GFR 30-59 4 Severe decrease in GFR 15-29 5 Kidney failure <15 (or dialysis) 3 Because ethnic data is not always readily available, this report includes an eGFR for both -Americans and non- Americans. The National Kidney Disease Education Program (NKDEP) does not endorse the use of the MDRD equation for patients that are not between the ages of 18 and 70, are , have extremes of body size, muscle mass, or nutritional status, or are non- or non-. According to the National Kidney Foundation, irrespective of diagnosis, the stage of the disease is based on the level of kidney function: Stage Description GFR(mL/min/1.73 m(2)) 1 Kidney damage with normal or decreased GFR 90 2 Kidney damage with mild decrease in GFR 60-89 3 Moderate decrease in GFR 30-59 4 Severe decrease in GFR 15-29 5 Kidney failure <15 (or dialysis) 4 ORDERED 06/29/17 EXPIRES 12/28/17 5 ORDERED 06/29/17 EXPIRES 12/28/17 6 E11.9 7 Elevated levels of HbA1c suggest the need for more aggressive treatment of glycemia. The [place] [employer] recommends that a primary goal of therapy should be a HbA1c of <7% and that physicians should re-evaluate the treatment regimen in patients with HbA1c values consistently >8%. 8 Because ethnic data is not always readily available, this report includes an eGFR for both -Americans and non- Americans. The National Kidney Disease Education Program (NKDEP) does not endorse the use of the MDRD equation for patients that are not between the ages of 18 and 70, are , have extremes of body size, muscle mass, or nutritional status, or are non- or non-. According to the National Kidney Foundation, irrespective of diagnosis, the stage of the disease is based on the level of kidney function: Stage Description GFR(mL/min/1.73 m(2)) 1 Kidney damage with normal or decreased GFR 90 2 Kidney damage with mild decrease in GFR 60-89 3 Moderate decrease in GFR 30-59 4 Severe decrease in GFR 15-29 5 Kidney failure <15 (or dialysis) 9 ADDITIONAL INFORMATION Testing performed by [facility]. This test was developed and its performance characteristics determined by [facility] in a manner consistent with CLIA requirements. This test has not been cleared or approved by the U.S. Food and Drug Administration. 10 ADDITIONAL INFORMATION Testing performed by Liquid Chromatography-Tandem Mass Spectrometry (LC-MS/MS). This test was developed and its performance characteristics determined by [facility] in a manner consistent with CLIA requirements. This test has not been cleared or approved by the U.S. Food and Drug Administration. Test Performed by: [address] [id number] 11 Therapeutic target for the treatment of diabetes mellitus patients is <7% HBA1C, and in selective patients <6.0%. Please refer to [place] [employer] diabetic care guidelines for further information. 12 L02.214 13 MODERATE EPITHELIAL CELLS 14 FEW GRAM POSITIVE COCCI 15 RARE WHITE BLOOD CELLS 16 MIXED SKIN FAMILIA 17 WOUND ON GENITAL AREA 18 URINE, CLEAN CATCH 19 NO GROWTH: FINAL REPORT 20 NO GROWTH: FINAL REPORT 21 Note: Persistent reduction for 3 months or more in an eGFR <60 mL/min/1.73 m2 defines CKD. Patients with eGFR values >/=60 mL/min/1.73 m2 may also have CKD if evidence of persistent proteinuria is present. The original MDRD equation for estimated GFR is not valid for patients less than 18 years of age. Additional information may be found at www.[email or web address]. 22 NO GROWTH: FINAL REPORT 23 NO GROWTH: FINAL REPORT 24 E11.9, R94.5 Z20.2 25 A negative result for either C. trachomatis and/or N. gonorrhoeae does not preclued an infection because results are dependent on adequate specimen collection, absence of inhibitors, and sufficient DNA to be detected. 26 Adult male reference interval is based on a population of healthy nonobese males (BMI <30) between 19 and 39 years old. Reece, et.al. JCEM 2017,102;[id number]. PMID: [id number]. 27 Results verified by repeat testing 28 >999.9 Calculated value greater than reporting limitations. Performed at: - [facility] [address] [id number] Audit Lead: Gisele Milan MD, Phone: [phone] Performed at: - [facility] [address] [id number] Audit Lead: Dayron Lim MD, Phone: [phone] 29 Elevated levels of HbA1c suggest the need for more aggressive treatment of glycemia. The [place] [employer] recommends that a primary goal of therapy should be a HbA1c of <7% and that physicians should re-evaluate the treatment regimen in patients with HbA1c values consistently >8%. 30 ORDERED 06/29/17 EXPIRES 12/28/17 31 RBC indices suggestive of a thalassemia. Recommend correlation with hemoglobin electrophoresis. Reviewed by Katie Fontana MD 32 Consistent with Previous Results Reported on 10/09/17 33 Acute inflammation: >10.00 34 Because ethnic data is not always readily available, this report includes an eGFR for both -Americans and non- Americans. The National Kidney Disease Education Program (NKDEP) does not endorse the use of the MDRD equation for patients that are not between the ages of 18 and 70, are , have extremes of body size, muscle mass, or nutritional status, or are non- or non-. According to the National Kidney Foundation, irrespective of diagnosis, the stage of the disease is based on the level of kidney function: Stage Description GFR(mL/min/1.73 m(2)) 1 Kidney damage with normal or decreased GFR 90 2 Kidney damage with mild decrease in GFR 60-89 3 Moderate decrease in GFR 30-59 4 Severe decrease in GFR 15-29 5 Kidney failure <15 (or dialysis) 35 Because ethnic data is not always readily available, this report includes an eGFR for both -Americans and non- Americans. The National Kidney Disease Education Program (NKDEP) does not endorse the use of the MDRD equation for patients that are not between the ages of 18 and 70, are , have extremes of body size, muscle mass, or nutritional status, or are non- or non-. According to the National Kidney Foundation, irrespective of diagnosis, the stage of the disease is based on the level of kidney function: Stage Description GFR(mL/min/1.73 m(2)) 1 Kidney damage with normal or decreased GFR 90 2 Kidney damage with mild decrease in GFR 60-89 3 Moderate decrease in GFR 30-59 4 Severe decrease in GFR 15-29 5 Kidney failure <15 (or dialysis) 36 I10 E11.9 E78.2 37 Reference Guidelines*: Desirable: ........... < 200 mg/dL Borderline High: ..... 200-239 mg/dL High: ................ >=240 mg/dL * The National Cholesterol Education Program (NCEP) 38 Reference Guidelines*: Normal: ............. < 150 mg/dL Borderline High: .... 150-199 mg/dL High: ............... 200-499 mg/dL Very High: .......... > 500 mg/dL * Source: National Cholesterol Education Program (NCEP) 39 Reference Guidelines*: Low HDL: ..... < 40 mg/dL Normal: ..... 40-60 mg/dL Desirable: ... > 60 mg/dL *The National Cholesterol Education Program(NCEP) 40 Reference Guidelines*: Optimal:........... <100 mg/dL Near Optimal....... 100-129 mg/dL Borderline High.... 130-159 mg/dL High............... 160-189 mg/dL Very High.......... >=190 mg/dL * Source: National Cholesterol Education Program (NCEP) 41 Elevated levels of HbA1c suggest the need for more aggressive treatment of glycemia. The [place] [employer] recommends that a primary goal of therapy should be a HbA1c of <7% and that physicians should re-evaluate the treatment regimen in patients with HbA1c values consistently >8%. 42 E11.9 43 Elevated levels of HbA1c suggest the need for more aggressive treatment of glycemia. The [place] [employer] recommends that a primary goal of therapy should be a HbA1c of <7% and that physicians should re-evaluate the treatment regimen in patients with HbA1c values consistently >8%. 44 No interferon-gamma response to M. tuberculosis antigens was detected. Infection with M. tuberculosis is unlikely. A negative result alone does not exclude infection with M. tuberculosis. For detailed information regarding test interpretation see: [email or web address] [email or web address] 45 Test Performed by: [address] [address] 46 1x order 47 1x order 48 1x order 49 1x order 50 QuantiFERON-TB Gold In-Tube, B was cancelled on 10/12/2016 at 09:59; One or more of collection tubes was under-filled (<0.8 mL sample). 51 QuantiFERON-TB Gold In-Tube, B was cancelled on 10/12/2016 at 09:59; One or more of collection tubes was under-filled (<0.8 mL sample). 52 QuantiFERON-TB Gold In-Tube, B was cancelled on 10/12/2016 at 09:59; One or more of collection tubes was under-filled (<0.8 mL sample). 53 QuantiFERON-TB Gold In-Tube, B was cancelled on 10/12/2016 at 09:59; One or more of collection tubes was under-filled (<0.8 mL sample). Test Performed by: [address] [id number] 54 Elevated levels of HbA1c suggest the need for more aggressive treatment of glycemia. The [place] [employer] recommends that a primary goal of therapy should be a HbA1c of <7% and that physicians should re-evaluate the treatment regimen in patients with HbA1c values consistently >8%. 55 Elevated levels of HbA1c suggest the need for more aggressive treatment of glycemia. The [place] [employer] recommends that a primary goal of therapy should be a HbA1c of <7% and that physicians should re-evaluate the treatment regimen in patients with HbA1c values consistently >8%. 56 Note: Persistent reduction for 3 months or more in an eGFR <60 mL/min/1.73 m2 defines CKD. Patients with eGFR values >/=60 mL/min/1.73 m2 may also have CKD if evidence of persistent proteinuria is present. The original MDRD equation for estimated GFR is not valid for patients less than 18 years of age. Additional information may be found at www.kdoqi.org. 57 Elevated levels of HbA1c suggest the need for more aggressive treatment of glycemia. The [place] [employer] recommends that a primary goal of therapy should be a HbA1c of <7% and that physicians should re-evaluate the treatment regimen in patients with HbA1c values consistently >8%. 58 Reference Guidelines*: Desirable: ........... < 200 mg/dL Borderline High: ..... 200-239 mg/dL High: ................ >=240 mg/dL * The National Cholesterol Education Program (NCEP) 59 Reference Guidelines*: Normal: ............. < 150 mg/dL Borderline High: .... 150-199 mg/dL High: ............... 200-499 mg/dL Very High: .......... > 500 mg/dL * Source: National Cholesterol Education Program (NCEP) 60 Reference Guidelines*: Low HDL: ..... < 40 mg/dL Normal: ..... 40-60 mg/dL Desirable: ... > 60 mg/dL *The National Cholesterol Education Program(NCEP) 61 Reference Guidelines*: Optimal:........... <100 mg/dL Near Optimal....... 100-129 mg/dL Borderline High.... 130-159 mg/dL High............... 160-189 mg/dL Very High.......... >=190 mg/dL * Source: National Cholesterol Education Program (NCEP) 62 Values below the stated reference ranges of AST and ALT can be seen in normal populations. Clinical correlation is suggested. 63 Because ethnic data is not always readily available, this report includes an eGFR for both -Americans and non- Americans. The National Kidney Disease Education Program (NKDEP) does not endorse the use of the MDRD equation for patients that are not between the ages of 18 and 70, are , have extremes of body size, muscle mass, or nutritional status, or are non- or non-. According to the National Kidney Foundation, irrespective of diagnosis, the stage of the disease is based on the level of kidney function: Stage Description GFR(mL/min/1.73 m(2)) 1 Kidney damage with normal or decreased GFR 90 2 Kidney damage with mild decrease in GFR 60-89 3 Moderate decrease in GFR 30-59 4 Severe decrease in GFR 15-29 5 Kidney failure <15 (or dialysis) 64 Acute inflammation: >10.00 65 Note: Persistent reduction for 3 months or more in an eGFR <60 mL/min/1.73 m2 defines CKD. Patients with eGFR values >/=60 mL/min/1.73 m2 may also have CKD if evidence of persistent proteinuria is present. The original MDRD equation for estimated GFR is not valid for patients less than 18 years of age. Additional information may be found at www.kdoqi.org. 66 Elevated levels of HbA1c suggest the need for more aggressive treatment of glycemia. The [place] [employer] recommends that a primary goal of therapy should be a HbA1c of <7% and that physicians should re-evaluate the treatment regimen in patients with HbA1c values consistently >8%. 67 Acute inflammation: >10.00 68 Because ethnic data is not always readily available, this report includes an eGFR for both -Americans and non- Americans. The National Kidney Disease Education Program (NKDEP) does not endorse the use of the MDRD equation for patients that are not between the ages of 18 and 70, are , have extremes of body size, muscle mass, or nutritional status, or are non- or non-. According to the National Kidney Foundation, irrespective of diagnosis, the stage of the disease is based on the level of kidney function: Stage Description GFR(mL/min/1.73 m(2)) 1 Kidney damage with normal or decreased GFR 90 2 Kidney damage with mild decrease in GFR 60-89 3 Moderate decrease in GFR 30-59 4 Severe decrease in GFR 15-29 5 Kidney failure <15 (or dialysis) 69 Because ethnic data is not always readily available, this report includes an eGFR for both -Americans and non- Americans. The National Kidney Disease Education Program (NKDEP) does not endorse the use of the MDRD equation for patients that are not between the ages of 18 and 70, are , have extremes of body size, muscle mass, or nutritional status, or are non- or non-. According to the National Kidney Foundation, irrespective of diagnosis, the stage of the disease is based on the level of kidney function: Stage Description GFR(mL/min/1.73 m(2)) 1 Kidney damage with normal or decreased GFR 90 2 Kidney damage with mild decrease in GFR 60-89 3 Moderate decrease in GFR 30-59 4 Severe decrease in GFR 15-29 5 Kidney failure <15 (or dialysis) 70 Acute inflammation: >10.00 71 Note: Persistent reduction for 3 months or more in an eGFR <60 mL/min/1.73 m2 defines CKD. Patients with eGFR values >/=60 mL/min/1.73 m2 may also have CKD if evidence of persistent proteinuria is present. The original MDRD equation for estimated GFR is not valid for patients less than 18 years of age. Additional information may be found at www.kdoqi.org. 72 Elevated levels of HbA1c suggest the need for more aggressive treatment of glycemia. The [place] [employer] recommends that a primary goal of therapy should be a HbA1c of <7% and that physicians should re-evaluate the treatment regimen in patients with HbA1c values consistently >8%. 73 Reference Guidelines*: Desirable: ........... < 200 mg/dL Borderline High: ..... 200-239 mg/dL High: ................ >=240 mg/dL * The National Cholesterol Education Program (NCEP) 74 Reference Guidelines*: Normal: ............. < 150 mg/dL Borderline High: .... 150-199 mg/dL High: ............... 200-499 mg/dL Very High: .......... > 500 mg/dL * Source: National Cholesterol Education Program (NCEP) 75 Reference Guidelines*: Low HDL: ..... < 40 mg/dL Normal: ..... 40-60 mg/dL Desirable: ... > 60 mg/dL *The National Cholesterol Education Program(NCEP) 76 Reference Guidelines*: Optimal:........... <100 mg/dL Near Optimal....... 100-129 mg/dL Borderline High.... 130-159 mg/dL High............... 160-189 mg/dL Very High.......... >=190 mg/dL * Source: National Cholesterol Education Program (NCEP) 77 Because ethnic data is not always readily available, this report includes an eGFR for both -Americans and non- Americans. The National Kidney Disease Education Program (NKDEP) does not endorse the use of the MDRD equation for patients that are not between the ages of 18 and 70, are , have extremes of body size, muscle mass, or nutritional status, or are non- or non-. According to the National Kidney Foundation, irrespective of diagnosis, the stage of the disease is based on the level of kidney function: Stage Description GFR(mL/min/1.73 m(2)) 1 Kidney damage with normal or decreased GFR 90 2 Kidney damage with mild decrease in GFR 60-89 3 Moderate decrease in GFR 30-59 4 Severe decrease in GFR 15-29 5 Kidney failure <15 (or dialysis) 78 Acute inflammation: >10.00 79 Note: Persistent reduction for 3 months or more in an eGFR <60 mL/min/1.73 m2 defines CKD. Patients with eGFR values >/=60 mL/min/1.73 m2 may also have CKD if evidence of persistent proteinuria is present. The original MDRD equation for estimated GFR is not valid for patients less than 18 years of age. Additional information may be found at www.[email or web address]. 80 Elevated levels of HbA1c suggest the need for more aggressive treatment of glycemia. The [place] [employer] recommends that a primary goal of therapy should be a HbA1c of <7% and that physicians should re-evaluate the treatment regimen in patients with HbA1c values consistently >8%. 81 Note: Persistent reduction for 3 months or more in an eGFR <60 mL/min/1.73 m2 defines CKD. Patients with eGFR values >/=60 mL/min/1.73 m2 may also have CKD if evidence of persistent proteinuria is present. The original MDRD equation for estimated GFR is not valid for patients less than 18 years of age. Additional information may be found at www.[email or web address]. 82 Elevated levels of HbA1c suggest the need for more aggressive treatment of glycemia. The [place] [employer] recommends that a primary goal of therapy should be a HbA1c of <7% and that physicians should re-evaluate the treatment regimen in patients with HbA1c values consistently >8%. 83 Reference Guidelines*: Desirable: ........... < 200 mg/dL Borderline High: ..... 200-239 mg/dL High: ................ >=240 mg/dL * The National Cholesterol Education Program (NCEP) 84 Reference Guidelines*: Low HDL: ..... < 40 mg/dL Normal: ..... 40-60 mg/dL Desirable: ... > 60 mg/dL *The National Cholesterol Education Program(NCEP) 85 Reference Guidelines*: Optimal:........... <100 mg/dL Near Optimal....... 100-129 mg/dL Borderline High.... 130-159 mg/dL High............... 160-189 mg/dL Very High.......... >=190 mg/dL * Source: National Cholesterol Education Program (NCEP) 86 Reference Guidelines*: Normal: ............. < 150 mg/dL Borderline High: .... 150-199 mg/dL High: ............... 200-499 mg/dL Very High: .......... > 500 mg/dL * Source: National Cholesterol Education Program (NCEP) 87 Acute inflammation: >10.00 88 Because ethnic data is not always readily available, this report includes an eGFR for both -Americans and non- Americans. The National Kidney Disease Education Program (NKDEP) does not endorse the use of the MDRD equation for patients that are not between the ages of 18 and 70, are , have extremes of body size, muscle mass, or nutritional status, or are non- or non-. According to the National Kidney Foundation, irrespective of diagnosis, the stage of the disease is based on the level of kidney function: Stage Description GFR(mL/min/1.73 m(2)) 1 Kidney damage with normal or decreased GFR 90 2 Kidney damage with mild decrease in GFR 60-89 3 Moderate decrease in GFR 30-59 4 Severe decrease in GFR 15-29 5 Kidney failure <15 (or dialysis) 89 Potassium reference range changed effective 05/18/14 90 Acute inflammation: >10.00 91 Leukocytosis with absolute neutrophilia, favor reactive. Reviewed by Katie Fontana MD 92 Because ethnic data is not always readily available, this report includes an eGFR for both -Americans and non- Americans. The National Kidney Disease Education Program (NKDEP) does not endorse the use of the MDRD equation for patients that are not between the ages of 18 and 70, are , have extremes of body size, muscle mass, or nutritional status, or are non- or non-. According to the National Kidney Foundation, irrespective of diagnosis, the stage of the disease is based on the level of kidney function: Stage Description GFR(mL/min/1.73 m(2)) 1 Kidney damage with normal or decreased GFR 90 2 Kidney damage with mild decrease in GFR 60-89 3 Moderate decrease in GFR 30-59 4 Severe decrease in GFR 15-29 5 Kidney failure <15 (or dialysis) 93 Therapeutic target for the treatment of diabetes Mellitus patients is <7% HBA1C, and in selective patients <6.0%.Please refer to [place] [employer] Diabetic care guidelines for further information. 94 A1c value between 5.7% and 6.4% is considered at increased risk for diabetes. A1c value greater than 6.5 % is considered essentially diagnostic for Type II diabetes. Current guidelines recommend a treatment goal of <7% for diabetic patients. This method will measure glycosylated hemoglobin variants, HbS, HbG, HbH, HbWayne, HbC, HbE, etc. Other hemoglobin- opathies may give incorrect results with this test. 95 Note: Persistent reduction for 3 months or more in an eGFR <60 mL/min/1.73 m2 defines CKD. Patients with eGFR values >/=60 mL/min/1.73 m2 may also have CKD if evidence of persistent proteinuria is present. The original MDRD equation for estimated GFR is not valid for patients less than 18 years of age. Additional information may be found at www.kdoqi.org. 96 A1c value between 5.7% and 6.4% is considered at increased risk for diabetes. A1c value greater than 6.5 % is considered essentially diagnostic for Type II diabetes. Current guidelines recommend a treatment goal of <7% for diabetic patients. This method will measure glycosylated hemoglobin variants, HbS, HbG, HbH, HbWayne, HbC, HbE, etc. Other hemoglobin- opathies may give incorrect results with this test. 97 Because ethnic data is not always readily available, this report includes an eGFR for both -Americans and non- Americans. The National Kidney Disease Education Program (NKDEP) does not endorse the use of the MDRD equation for patients that are not between the ages of 18 and 70, are , have extremes of body size, muscle mass, or nutritional status, or are non- or non-. According to the National Kidney Foundation, irrespective of diagnosis, the stage of the disease is based on the level of kidney function: Stage Description GFR(mL/min/1.73 m(2)) 1 Kidney damage with normal or decreased GFR 90 2 Kidney damage with mild decrease in GFR 60-89 3 Moderate decrease in GFR 30-59 4 Severe decrease in GFR 15-29 5 Kidney failure <15 (or dialysis) 98 Acute inflammation: >10.00 In accordance with FDA guideline, CRP is now reported in mg/L, previous reporting was in mg/dL. 99 Therapeutic target for the treatment of diabetes Mellitus patients is <7% HBA1C, and in selective patients <6.0%.Please refer to [place] [employer] Diabetic care guidelines for further information. 10 Test Performed by: [facility], [address] [place] [id number] Electrical Installer: Devon Keller III, M.D. 10 Because ethnic data is not always readily available, this report includes an eGFR for 1 both -Americans and non- Americans. The National Kidney Disease Education Program (NKDEP) does not endorse the use of the MDRD equation for patients that are not between the ages of 18 and 70, are , have extremes of body size, muscle mass, or nutritional status, or are non- or non-. According to the National Kidney Foundation, irrespective of diagnosis, the stage of the disease is based on the level of kidney function: Stage Description GFR(mL/min/1.73 m(2)) 1 Kidney damage with normal or decreased GFR 90 2 Kidney damage with mild decrease in GFR 60-89 3 Moderate decrease in GFR 30-59 4 Severe decrease in GFR 15-29 5 Kidney failure <15 (or dialysis) 10 Therapeutic target for the treatment of diabetes Mellitus patients is <7% HBA1C, and in 2 selective patients <6.0%.Please refer to [place] [employer] Diabetic care guidelines for further information. 10 Because ethnic data is not always readily available, this report includes an eGFR for 3 both -Americans and non- Americans. The National Kidney Disease Education Program (NKDEP) does not endorse the use of the MDRD equation for patients that are not between the ages of 18 and 70, are , have extremes of body size, muscle mass, or nutritional status, or are non- or non-. According to the [employer], irrespective of diagnosis, the stage of the disease is based on the level of kidney function: Stage Description GFR(mL/min/1.73 m(2)) 1 Kidney damage with normal or decreased GFR 90 2 Kidney damage with mild decrease in GFR 60-89 3 Moderate decrease in GFR 30-59 4 Severe decrease in GFR 15-29 5 Kidney failure <15 (or dialysis) 10 HDL Interpretation: Undesirable: High Risk: Less than 40 mg/dL Desirable: Low Risk: Greater 4 than 60 mg/dL 10 LDL Interpretation: Low Risk Optimal Level: LDL Less than 100 mg/dL Near or Above Optimal: 5 LDL 100-129 mg/dL Borderline High Risk: LDL 130-159 mg/dL High Risk: LDL 160 -189 mg/dL Very High Risk: LDL Greater than 189 mg/dL Procedures Date CPT Code Description Status Comment 11/20/2017 69281 I & D Of Abscess/Simple Or Completed Single 05/24/2017 Diabetic Foot Exam Completed 09/15/2016 62849 Apply Splint Finger Static Completed 08/24/2016 50964 Apply Splint Finger Static Completed 08/04/2016 32912 Apply Splint Finger Static Completed 07/25/2016 04538 Removal Foreign Body From Completed External Auditory Canal-W/O Gen. Anesth 03/10/2015 02331 Neuroplasty median nerve at Completed carpal tunnel 03/10/2015 33299 Anesthesia, Lower Arm Surgery Completed (Nerve,Muscle,Tendon,Fascia,Bu rsa) 01/06/2015 89579 Nerve Conduction 7-8 Studies Completed 01/06/2015 77854 Needle Electromyography Completed Complete, Five Or More Muscles Studied 12/15/2014 23621 Radiology, Elbow Complete Completed 10/23/2014 Bone Mineral Density Test Completed OSTEOPOROSIS FROM PREDNISONE - FOLLOWED BY DR. VICTORIA 02/12/[address] Villalobos 02/12/2014 Colonoscopy Completed 08/12/2003 75969 Destruct-Skin Completed Tags/Lesions-Local Anesthesia- 2-14 Lesions 08/12/2003 23617 Destruct-Skin Completed Tags/Lesions-Local Anesthesia - First Lesion 07/07/2003 56836 Destruct-Skin Completed Tags/Lesions-Local Anesthesia- 2-14 Lesions 07/07/2003 26802 Destruct-Skin Completed Tags/Lesions-Local Anesthesia - First Lesion 06/07/2003 04522 EKG Interpretation And Report Completed Only Encounters Type Date Location Provider CPT E/M Dx Office Visit 03/21/2018 10:30a [facility] Olive Malika Myers 24968 Z01.818 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 M25.562 E11.9 Office Visit 02/12/2018 10:00a [facility] Olive Malika Myers [facility] 51826 E11.9 I10 R94.5 M25.562 M25.572 Office Visit 01/01/2018 10:45a [facility] Layne Wetzel M.D. 73497 N48.21 Office Visit 12/01/2017 11:15a [facility] Layne Wetzel M.D. 29032 N48.21 Office Visit 11/23/2017 10:30a [facility] Layne Wetzel M.D. 01103 N48.21 Office Visit 11/20/2017 9:45a [facility] Layne Wetzel M.D. 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 44653 M20.012 Office Visit 12/07/2016 8:45a [facility] Jorge Luis Salinas M.D. 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 86737 M20.012 Office Visit 09/30/2016 9:30a [facility] Jorge Luis Salinas M.D. 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 47284 E11.9 Office Visit 01/06/2016 1:00p Family Medicine Kiki Gu M.D. 51315 E11.9 E78.2 I10 Office Visit 04/14/2015 10:00a Family Medicine Kiki Gu M.D. 08181 E11.9 E78.2 I10 Office Visit 02/20/2015 10:00a [facility] Sushant Geronimo M.D. 42924 354.0 Office Visit 01/08/2015 1:15p [facility] Sushant Geronimo M.D. 85069 354.0 Office Visit 12/15/2014 1:15p [facility] Sushant Geronimo M.D. 12152 719.43 354.0 Office Visit 12/12/2014 10:30a Family Medicine Kiki Gu M.D. 82254 250.00 272.4 401.1 719.42 Plan of Care 03/21/2018 - Lucia Carolinarickleilaniponchojocelyn, FNPZ01.818 Encounter for other preprocedural examinationComments:EKG read by Dr. Tuttle as NSR - no previous on file for comparisionDiscussed continued abstinence from testosteroneExcellent cardiovascular conditioning in relation to ability to walk without SOB or CP 2- 3 [address] and go up 2-3 flights of stairs. Knee pain is his major limiting factor.M25.562 Pain in left kneeComments:ASA classification of 2 for well controlled DM - surgery as [id number] Type 2 diabetes mellitus without complicationsComments:Well controlled based on fasting sugars of 80-100.
--- OUTSIDE RECORDS SUMMARY | 2018-04-10 08:50 | XMS REPORT ---
:1975 External Reference #:[id number] Author Organization [facility] 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 Malika Myers NP Primary Care Physician Unavailable Payers Type Date Identification Numbers Payment Provider Subscriber Medicare Primary Effective: Policy Number: Medicare Aaron Blake 1996 [id number] Group Name: Medicare [address] PayID: [id number] [place] [address] Medicaid Policy Number: [id number] Medicaid Aaron Blake Group Name: 1 1 [address] PayID: [id number] [place] [address] Problems Date Description Provider Status Onset: 07/08/2003 Rheumatoid arthritis Active Onset: 04/22/2013 Type 2 diabetes mellitus Malika Myers [employer] Active Onset: 05/21/2013 Hyperlipidemia Malika Myers [employer] Active Onset: 05/21/2013 Essential hypertension Malika Myers, [employer] Active Onset: 07/08/2003 Enthesopathy Active Onset: 05/27/2013 Osteoporosis Malika Myers [employer] Active Onset: 04/25/2016 Vesicular eczema of hands and/or Malika Myers FNP Active feet Onset: 08/04/2016 Mallet finger Geraldine Peraza PA Active Onset: 10/11/2017 Liver enzymes abnormal Malika Myers [employer] Active Note: Lab: 10/09/17 - Comp Metabolic [...] Lives With Mother Lives With Cousins 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 Cigarette Use Quit ETOH Use Rarely consumes [...] its lantus Jenniferl rafine/31G X insulin eigh, [employer] MA[employer]GER 09/29" Lantus Solostar 12/03/ Active Solution 100Unit/M 9000u 6 units in Jimmy2013 Pen-Inject L nits am Jenniferl faith [employer] Simvastatin 05/01/ Active Tablets 40mg 90tab Take 1 E78.2 Lucia2012 s Tablet By Jenniferl Mouth Every eigh, [employer]GER Day Metformin HCL 05/01/ Active Tablets 1000mg 180ta 1 By Mouth E11.9 Cl , 2012 bs Twice A Day Jenniferl eigh, [employer]GER Tramadol HCL / Active Tablets 50mg 60tab 1/2 to 1 M06.9 Clune, s tablet as Jenniferl needed for eigh, [employer] MA[employer]GER pain by mouth every 6 hours Reference #: [id number] Cinnamon / Active Tablets 500mg 2 by mouth Unknown 0000 twice a day Calcium / Active Tablets 500mg 1 by mouth Unknown 0000 every day Accu-Chek Nuria / Active Strips 100un check bs [place], Plus 0000 its 1-2 times a Jenniferl day eigh, [employer]GER Enbrel / Active Solution 50mg/ml Adm 1 ML SC Unknown Sureclick 0000 Auto-Inject Q WK Glucosamine / Active Capsules 1500Com using OTC Unknown Chondroitin 1500 Complex Ibuprofen / Active Tablets 600mg , MD Aidan Betamethasone / Active Cream 0.1% 45uni Apply To Clune, Valerate ts Hands Twice Jenniferl Daily eigh, [employer]GER Omeprazole / Active Capsules DR 20mg 90cap Take 1 Cl s Capsule By Jenniferl Mouth Daily eigh, [employer]GER Gabapentin / Active Capsules 300mg 270ca 1 by mouth Cl ps three times Jenniferl a day eigh, [employer]GER Dicyclomine HCL / Active Tablets 20mg 90tab take 1 Cl s tablet by Jenniferl mouth three eigh, [employer] MA[employer]GER times daily as needed for intestinal spasm mdd 3 Prednisone / Active Tablets 1mg 3in am,3 in Clune, pm Jenniferl eigh, [employer] MA[employer]GER Bactrim DS 11/20/ Hx Tablets 800-160mg 10tab 1 tab by L02.214 Damari, 2017 - s mouth twice Mahmoud, 12/01/ a day M.D. 2018 Cephalexin 11/17/ Hx Tablets 500mg 20tab one by L03.314 Lucia, 2017 - s mouth twice Jenniferl 11/27/ a day x 10 eigh, [employer]GER 2018 days Betamethasone 04/25/ Hx Cream 0.1% 45gm apply to Clune, Valerate 2015 - hands twice Jenniferl 08/03/ daily eigh, [employer]GER 2017 Mometasone 03/16/ Hx Suspension 50mcg/Act 17gm one spray H69.91 Lucia Furoate 2016 - each Jenniferl 03/16/ nostril eigh, [employer] MA[employer]GER 2016 every day - Fluticasone 03/16/ Hx Suspension 50mcg/Act 1unit 1 [place] H69.91 Lucia Propionate 2016 - s Each Jenniferl 10/24/ Nostril eigh, [employer] MA[employer]GER 2017 Twice A Day Amoxicillin/Cla 03/04/ Hx Tablets 875-125mg 20tab one by H65.01 Lucia vulanate 2016 - s mouth twice Jenniferl Potassium 03/16/ a day x 10 eigh, [employer] MANAGER 2016 days *in place of ciprodex ear drops* Ciprodex 03/02/ Hx Suspension 0.3-0.1% QS 4 drops in H65.01 Lucia, 2016 - the right Jenniferl 03/04/ ear four eigh, [facility] 2016 times a day x [...] - s Every Day Jenniferl 11/13/ eigh, [employer] MA[employer]GER 2018 Prednisone 00/ Hx Tablets 3mg 90tab [...] PNKT 40mg/0.8M Aubrey, 0000 - L Zsofia, [employer] MANAGER 2016 Azithromycin / Hx Tablets 500mg TK [...] tablet by Theodore 06/12/ mouth twice eigh, [employer] MA[employer]GER 2017 daily Lisinopril / Hx Tablets 5mg [...] kg/m2 BSA (Body Surface Area) 1.76 m2 [place] body weight in kilograms 62 02/12/2018 BP Systolic Sitting Left Arm 126 mmHg BP Diastolic Sitting Left Arm 76 mmHg Heart Rate 80 /min Respiratory Rate 18 /min Height 65 inches 5'5" Weight 155.00 lb BMI (Body Mass Index) 25.8 kg/m2 BSA (Body Surface Area) 1.78 m2 [place] body weight in kilograms 62 01/01/2018 BP Systolic 152 mmHg BP Diastolic 89 mmHg Body Temperature 98.9 F Heart Rate 68 /min Respiratory Rate 18 /min Height 65 inches 5'5" Weight 158.00 lb BMI (Body Mass Index) 26.3 kg/m2 BSA (Body Surface Area) 1.79 m2 [place] body weight in kilograms 62 O2 % BldC Oximetry 97 % Pain Level 0 12/01/2017 BP Systolic 148 mmHg BP Diastolic 80 mmHg Body Temperature 99.7 F Heart Rate 78 /min Respiratory Rate 16 /min Height 65 inches 5'5" Weight 155.00 lb BMI (Body Mass Index) 25.8 kg/m2 BSA (Body Surface Area) 1.78 m2 [place] body weight in kilograms 62 O2 % BldC Oximetry 96 % Pain Level 0 11/23/2017 BP Systolic 126 mmHg BP Diastolic 76 mmHg Body Temperature 98.6 F Heart Rate 76 /min Respiratory Rate 18 /min Height 65 inches 5'5" [place] body weight in kilograms 62 O2 % BldC Oximetry 97 % Pain Level 4 11/20/2017 BP Systolic 146 mmHg BP Diastolic 84 mmHg Body Temperature 98.2 F Heart Rate 65 /min Respiratory Rate 14 /min Height 65 inches 5'5" Weight 159.00 lb BMI (Body Mass Index) 26.5 kg/m2 BSA (Body Surface Area) 1.79 m2 [place] body weight in kilograms 62 O2 % [...] kg/m2 BSA (Body Surface Area) 1.80 m2 [place] body weight in kilograms 63 11/13/2017 BP Systolic Sitting Left Arm 122 mmHg BP Diastolic Sitting Left Arm 76 mmHg Heart Rate 80 /min Respiratory Rate 18 /min Height 65.5 inches 5'5.50" Weight 163.00 lb BMI (Body Mass Index) 26.7 kg/m2 BSA (Body Surface Area) 1.82 m2 [place] body weight in kilograms 63 05/24/2017 BP Systolic 122 mmHg BP Diastolic 78 mmHg Body Temperature 97.0 F Heart Rate 73 /min Height 65.5 inches 5'5.50" Weight 170.00 lb BMI (Body Mass Index) 27.9 kg/m2 BSA (Body Surface Area) 1.86 m2 [place] body weight in kilograms 63 O2 % [...] kg/m2 BSA (Body Surface Area) 1.88 m2 [place] body weight in kilograms 63 08/02/2016 BP Systolic Sitting Left Arm 126 mmHg BP Diastolic Sitting Left Arm 74 mmHg Body Temperature 97.6 F Heart Rate 76 /min Respiratory Rate 18 /min Height 65 inches 5'5" Weight 180.00 lb BMI (Body Mass Index) 30.0 kg/m2 BSA (Body Surface Area) 1.89 m2 [place] body weight in kilograms 62 07/25/2016 BP [...] kg/m2 BSA (Body Surface Area) 1.88 m2 [place] body weight in kilograms 62 03/16/2016 BP Systolic Sitting Left Arm 122 mmHg BP Diastolic Sitting Left Arm 74 mmHg Heart Rate 75 /min Height 65 inches 5'5" Weight 176.00 lb BMI (Body Mass Index) 29.3 kg/m2 BSA (Body Surface Area) 1.87 m2 [place] body weight in kilograms 62 03/02/2016 BP Systolic Sitting Left Arm 122 mmHg BP Diastolic Sitting Left Arm 72 mmHg Body Temperature 97.1 F Heart Rate 88 /min Respiratory Rate 18 /min Height 65 inches 5'5" Weight 174.00 lb BMI (Body Mass Index) 29.0 kg/m2 BSA (Body Surface Area) 1.86 m2 [place] body weight in kilograms 62 01/22/2016 BP Systolic Sitting Left Arm 118 mmHg BP Diastolic Sitting Left Arm 72 mmHg Heart Rate 76 /min Respiratory Rate 18 /min Height 65 inches 5'5" Weight 171.00 lb BMI (Body Mass Index) 28.5 kg/m2 BSA (Body Surface Area) 1.85 m2 [place] body weight in kilograms 62 01/06/2016 BP [...] Test Date Test Result H/L Range Note Comp Metabolic Panel 03/26/2018 Sodium 141 mmol/L [...] Egfr Non- 86.5 >60 Egfr 104.7 >60 1 Laboratory test finding 03/26/2018 C Reactive Protein [...] 6.5-7.5 Ua Blood - Negative Ua Specific [place] 1.010 1.010-1.030 Ua Ketones - Negative Ua [...] Egfr Non- 70.8 >60 Egfr 85.7 >60 2 Potassium 5.1 mmol/L High 3.5-5.0 Anion Gap 6 mmol/L 2-11 Laboratory test finding 02/23/2018 C Reactive Protein < 1.00 mg/L <8.01 3 CBC Auto Diff 02/23/2018 White Blood Count [...] 02/23/2018 Erythrocyte Sed Rate 1 mm/Hr 0-14 4 Glycohemoglobin A1c 02/12/2018 Glycohemoglobin (A1c) 6.5 % High 4.2-6.3 5 , 6 eAG 140 mg/dL 5 Urine Dipstick 02/12/2018 Ua PH 6 Low 6.5-7.5 Ua Specific [place] 1.010 1.010-1.030 Laboratory test finding 01/05/2018 Erythrocyte Sed Rate [...] Egfr Non- 81.6 >60 Egfr 98.7 >60 7 Testosterone Free & Total 01/05/2018 Free Testosterone ng/dl 31.8 ng/dL 4.46-17.1 8 Testosterone 815 ng/dL 240-950 9 Laboratory test 01/05/2018 Hemoglobin A1c 7.2 % High 4.0-5.6 10 finding (Glyco HGB) Routine Culture W/ 11/20/2017 Gram Stain MODERATE EPITHEL 11, 12 Gram Stain <SEE NOTE> Gram Stain FEW GRAM POSITIV <SEE NOTE> 11, 13 Gram Stain RARE WHITE BLOOD <SEE NOTE> 11, 14 Aerobic Culture MIXED SKIN FAMILIA 11, 15 Quantity MODERATE 11 Blood Culture 11/19/2017 Blood Culture Aerobic NO GROWTH: FINAL <SEE NOTE> 16, 17 Blood Culture Anaerobic NO GROWTH: FINAL <SEE NOTE> 16, 18 Differential-WBC Confirm 11/19/2017 Total Cells Counted 100 #CELLS 16 Band% 7 % 0-8 16 Neutrophils% 51 % 33-73 16 Lymph% 24 % 20-42 16 Monocyte% 13 % High 0-10 16 Eosinophil% 3 % 0-5 16 Basophil% 2 % 0-2 16 Platelet Estimate NORMAL 16 Anisocytosis 0-1+ 16 Microcytosis 1+ 16 Ovalocytes 0-1+ 16 Laboratory test finding 11/19/2017 Slide Review DIFF ORDERED 16 CBS W/Automated Diff 11/19/2017 White Blood Count 10.0 K/uL 3.4-10.5 16 Red Blood Count 6.24 M/uL High 4.20-5.80 16 Hemoglobin 14.6 gm/dL 12.8-17.0 16 Hematocrit 45.1 % 38.0-48.0 16 Mean Cell Volume 72.3 fl Low 80.0-96.0 16 Mean Corpuscular HGB 23.4 pg Low 27.0-33.0 16 Mean Corpuscular HGB Conc 32.4 g/dL 31.7-36.0 16 Platelet Count 236 K/uL 155-360 16 Red Cell Distri Width SD 46.0 fl 36-51 16 Red Cell Distri Width %CV 18.7 % High 11.6-15.8 16 Mean Platelet Volume 12.2 fL High 6.6-10.6 16 Neut% 54.2 % 33.0-73.0 16 Lymph % 27.5 % 20.0-42.0 16 [place] % 12.9 % High 0.0-10.0 16 Eo% 4.3 % 0.0-6.6 16 Bas% 1.1 % 0.0-1.1 16 Neut# 5.44 K/uL 1.8-7.0 16 Lymph # 2.76 K/uL 1.0-4.0 16 [place] # 1.30 K/uL High 0.0-0.8 16 Eos # 0.43 K/uL 0.0-0.5 16 Baso # 0.11 K/uL High 0.0-0.1 16 Lactic Acid 11/19/2017 Lactic Acid 1.7 mmol/L 0.4-1.9 16 Lab Reflex >2.0 for Sepsis? Y 16 Comprehensive Metabolic Panel 11/19/2017 Glucose 166 mg/dL High 74-106 16 BUN 20 mg/dL High 7-18 16 Creatinine 1.0 mg/dL 0.6-1.3 16 Glom Filtration Rate, Estimate >60 mL/min >60 16 If >60 mL/min >60 16, 19 BUN/Creat 20.0 ratio 16 Sodium 137 mmol/L 136-145 16 Potassium 4.1 mmol/L 3.5-5.1 16 Chloride 105 mmol/L 98-107 16 Carbon Dioxide 26 mmol/L 21-32 16 Anion Gap 6 mEq/L Low 8-16 16 Calcium 8.8 mg/dL 8.5-10.1 16 Total Protein 7.1 g/dL 6.4-8.2 16 Albumin 3.6 g/dL 3.4-5.0 16 Globulin 3.5 g/dL 1.9-4.3 16 Alb/Glob 1.0 ratio 16 Bilirubin,Total 0.3 mg/dL 0.2-1.0 16 Sgot/Ast 34 U/L 15-37 16 SGPT/Alt 89 U/L High 12-78 16 Alkaline Phosphatase 68 U/L 45-117 16 Blood Culture 11/19/2017 Blood Culture Aerobic NO GROWTH: FINAL <SEE NOTE> 16, 20 Blood Culture Anaerobic NO GROWTH: FINAL <SEE NOTE> 16, 21 Ua RFX Micro & Culture II 11/19/2017 Urine Color YELLOW Yellow 16 Urine Clarity CLEAR Clear 16 Urine Glucose - Dipstick NEGATIVE mg/dL Negative 16 Urine Bilirubin - Dipstick NEGATIVE Negative 16 Urine Ketone NEGATIVE mg/dL Negative 16 Urine Specific [place] 1.010 1.010-1.030 16 Urine Blood NEGATIVE Negative 16 Urine PH 6.5 6.5-7.5 16 Urine Protein - Dipstick NEGATIVE mg/dL Negative 16 Urine Urobilinogen - Dipstick 0.2 E.U./dL 0.2-1.0 16 Urine Nitrite - Dipstick NEGATIVE Negative 16 Urine Leuk Esterase NEGATIVE Negative 16 Source: URINE, CLEAN CAT <SEE NOTE> 16, 22 Glycohemoglobin A1c 11/13/2017 Glycohemoglobin (A1c) 7.4 % High 4.2-6.3 23, 24 eAG 166 mg/dL 23 Testosterone,Free/Weakly 11/13/2017 Testosterone,Serum >1500 High 264-916 23, 25 Bound ng/dL Testosterone,%Free/Weakly BND 73.2 % High 9.0-46.0 23, 26 Testosterone,Free Weakly Bound (SEE NOTE) ng/dL 40.0-250.0 23, 27 Chlamydia/GC Cyndie, Urine 11/13/2017 Chlamydia Trachomatis,Ur Negative Negative 23 -PCR Neisseria Gonorrhoeae,Ur -PCR Negative Negative 23, 28 Laboratory test finding 11/07/2017 Erythrocyte Sed Rate 3 mm/Hr 0-14 29 Pathologist Review (SEE NOTE) 30 Manual Differential 11/07/2017 Immature Granulocytes 6 % [...] 0.1 10^3/uL 0-0.2 Technical Review Performed By [id number] RBC Morphology Normal Normal Comp Metabolic Panel 11/07/2017 Sodium 136 mmol/L [...] Egfr Non- 82.5 >60 Egfr 106.1 >60 31 Laboratory test finding 11/07/2017 C Reactive Protein 7.91 mg/L High < 5.00 32 CBC Auto Diff 11/07/2017 White Blood Count 7.6 10^3/uL 3.5-10.8 Red Blood Count 6.18 10^6/uL High 4.0-5.4 Hemoglobin 14.6 g/dL 14.0-18.0 Hematocrit 45 % 42-52 Mean Corpuscular Volume 73 fL Low 80-94 33 Mean Corpuscular Hemoglobin 24 pg Low 27-31 [...] Mean Platelet Volume 11.5 um3 High 7.4-10.4 Comp Metabolic Panel 10/09/2017 Sodium 137 mmol/L [...] Egfr Non- 90.9 >60 Egfr 116.9 >60 34 Liver Function Panel 10/09/2017 Direct Bilirubin 0.10 [...] Cholesterol Profile 05/24/2017 Cholesterol 149 mg/dL <200 35, 36 Triglycerides 163 mg/dL High <150 35, 37 HDL Cholesterol 37 mg/dL Low >40 35, 38 LDL-Cholesterol 79 mg/dL < 100 35, 39 Microalbumin,Random Urine 05/24/2017 Microalbumin,Urine < 5.0 mg/L < 20.0 35 Glycohemoglobin A1c 05/24/2017 Glycohemoglobin (A1c) 5.6 % 4.2-6.3 35, 40 eAG 114 mg/dL 35 Glycohemoglobin A1c 11/21/2016 Glycohemoglobin (A1c) 6.9 % High 4.2-6.3 41, 42 eAG 151 mg/dL 41 Quantiferon Gold TB 10/12/2016 M tuberculosis by Quantiferon Negative Negative 43 TB Ag minus Nil Result 0 IU/mL TB Mitogen minus Nil Result > 10.00 IU/mL TB Nil Result 0.02 IU/mL 44 Laboratory test finding 10/10/2016 Hepatitis B Surface Nonreactive Nonreactive 45 Antigen Hepatitis A AB IgM Nonreactive Nonreactive 46 Hepatitis C Antibody Nonreactive Nonreactive 47 Hepatitis B Core IgM Nonreactive Nonreactive 48 Quantiferon Gold TB 10/10/2016 M tuberculosis by Quantiferon TNP () 49 TB Ag minus Nil Result TNP () 50 TB Mitogen minus Nil Result TNP () 51 TB Nil Result TNP () 52 Estimated Average 07/25/2016 Estimated Average 163 Glucose (eAG) Glucose (eAG) Laboratory test finding 07/25/2016 Hemoglobin A1c 7.3 High 4.2-6.3 Glycohemoglobin A1c 07/25/2016 Glycohemoglobin (A1c) 7.3 % High 4.2-6.3 41, 53 eAG 163 mg/dL 41 Glycohemoglobin A1c 04/25/2016 Glycohemoglobin (A1c) 7.2 % High 4.2-6.3 41, 54 eAG 160 mg/dL 41 @[facility] Pat Id: [id number] 41 @[facility] Req #: [id number] Microalbumin,Random Urine 04/25/2016 Microalbumin,Urine < 5.0 mg/L < 20.0 41 @[facility] Pat Id: [id number] 41 @[facility] Req #: [id number] Basic Metabolic Panel 01/06/2016 Glucose 212 mg/dL High 74-106 BUN 19 mg/dL High 7-18 Creatinine 1.2 mg/dL 0.6-1.3 Glom Filtration Rate, Estimate >60 mL/min >60 If >60 mL/min >60 55 BUN/Creat 15.8 ratio Sodium 135 mmol/L Low 136-145 Potassium 4.4 mmol/L 3.5-5.1 Chloride 103 mmol/L 98-107 Carbon Dioxide 24 mmol/L 21-32 Anion Gap 8 mEq/L 8-16 Calcium 8.7 mg/dL 8.5-10.1 Glycohemoglobin A1c 01/06/2016 Glycohemoglobin (A1c) 7.7 % High 4.2-6.3 56 eAG 174 mg/dL LDL Cholesterol Profile 01/06/2016 Cholesterol 182 mg/dL 150-200 57 Triglycerides 235 mg/dL High 50-150 58 HDL Cholesterol 39 mg/dL Low 60-150 59 LDL-Cholesterol 96 mg/dL 75-100 60 Liver Function Tests 01/06/2016 Total Protein 7.5 g/dL 6.4-8.2 Albumin 3.8 g/dL 3.4-5.0 Globulin 3.7 g/dL 1.9-4.3 Alb/Glob 1.0 ratio Bilirubin,Total 0.2 mg/dL 0.2-1.0 Bilirubin,Direct < 0.1 mg/dL 0.0-0.2 Bilirubin,Indirect 0.1 mg/dL 0.0-0.9 Sgot/Ast 14 U/L Low 15-37 61 SGPT/Alt 32 U/L 12-78 Alkaline Phosphatase 78 [...] Egfr Non- 124.9 >60 Egfr 160.6 >60 62 Laboratory test finding 05/07/2015 C Reactive Protein 18.99 mg/L High < 5.00 63 CBC Auto Diff 05/07/2015 White Blood Count [...] >60 mL/min >60 If >60 mL/min >60 64 BUN/Creat 14.4 ratio Sodium 137 mmol/L 136-145 Potassium 4.3 mmol/L 3.5-5.1 Chloride 103 mmol/L 98-107 Carbon Dioxide 27 mmol/L 21-32 Anion Gap 7 mEq/L Low 8-16 Calcium 9.2 mg/dL 8.5-10.1 Glycohemoglobin A1c 04/14/2015 Glycohemoglobin (A1c) 8.2 % High 4.2-6.3 65 eAG 189 mg/dL Laboratory test finding 03/16/2015 C Reactive Protein 19.81 mg/L High < 5.00 66 CBC Auto Diff 03/16/2015 White Blood Count [...] Egfr Non- 105.5 >60 Egfr 135.7 >60 67 Laboratory test finding 12/12/2014 Vitamin D Total [...] Egfr Non- 108.6 >60 Egfr 139.7 >60 68 Laboratory test finding 12/12/2014 C Reactive Protein 21.83 mg/L High < 5.00 69 CBC Auto Diff 12/12/2014 White Blood Count [...] >60 mL/min >60 If >60 mL/min >60 70 BUN/Creat 17.7 ratio Sodium 140 mmol/L 136-145 Potassium 4.2 mmol/L 3.5-5.1 Chloride 104 mmol/L 98-107 Carbon Dioxide 25 mmol/L 21-32 Anion Gap 11 mEq/L 8-16 Calcium 9.1 mg/dL 8.5-10.1 Glycohemoglobin A1c 12/12/2014 Glycohemoglobin (A1c) 7.4 % High 4.2-6.3 71 eAG 166 mg/dL LDL Cholesterol Profile 12/12/2014 Cholesterol 176 mg/dL 150-200 72 Triglycerides 252 mg/dL High 50-150 73 HDL Cholesterol 39 mg/dL Low 60-150 74 LDL-Cholesterol 87 mg/dL 75-100 75 Liver Function Tests 12/12/2014 Total Protein 7.4 [...] Egfr Non- 107.1 >60 Egfr 137.7 >60 76 Laboratory test finding 11/17/2014 C Reactive Protein 20.58 mg/L High < 5.00 77 CBC Auto Diff 11/17/2014 White Blood Count [...] 98 mg/dL 74-106 If >60 mL/min >60 78 Potassium 4.2 mmol/L 3.5-5.1 Sodium 139 mmol/L 136-145 Glycohemoglobin A1c 09/16/2014 Glycohemoglobin (A1c) 7.1 % High 4.2-6.3 79 eAG 157 mg/dL Basic Metabolic Panel 06/17/2014 Anion Gap 14 mEq/L 8-16 BUN 15 mg/dL 7-18 BUN/Creat 16.6 ratio Calcium 8.7 mg/dL 8.5-10.1 Carbon Dioxide 26 mmol/L 21-32 Chloride 105 mmol/L 98-107 Creatinine 0.9 mg/dL 0.6-1.3 Glom Filtration Rate, Estimate >60 mL/min >60 Glucose 89 mg/dL 74-106 If >60 mL/min >60 80 Potassium 4.0 mmol/L 3.5-5.1 Sodium 141 mmol/L 136-145 Glycohemoglobin A1c 06/17/2014 Glycohemoglobin (A1c) 7.1 % High 4.2-6.3 81 eAG 157 mg/dL LDL Cholesterol Profile 06/17/2014 Cholesterol 172 mg/dL < 200 82 HDL Cholesterol 41 mg/dL > 40 83 LDL-Cholesterol 86 mg/dL < 100 84 Triglycerides 226 mg/dL < 150 85 Liver Function Tests 06/17/2014 Alb/Glob 1.2 ratio Albumin 3.7 g/dL 3.4-5.0 Alkaline Phosphatase 83 U/L 45-117 Bilirubin,Direct < 0.1 mg/dL 0.0-0.2 Bilirubin,Indirect 0.1 mg/dL 0.0-0.9 Bilirubin,Total 0.2 mg/dL 0.2-1.0 Globulin 3.2 g/dL 1.9-4.3 SGPT/Alt 24 U/L 12-78 Sgot/Ast 15 U/L 15-37 Total Protein 6.9 g/dL 6.4-8.2 Laboratory test finding 05/19/2014 C Reactive Protein 22.49 mg/L High < 5.00 86 Erythrocyte Sed Rate 27 mm/Hr High 0-14 [...] Creatinine 0.80 mg/dL 0.67-1.17 Egfr 138.4 >60 87 Egfr Non- 107.6 >60 Globulin 2.3 g/dL 2-4 Glucose 129 mg/dL High 70-100 Potassium 4.3 mmol/L 3.5-5.0 88 Sodium 137 mmol/L 133-145 Total Bilirubin 0.30 mg/dL 0.2-1.0 Total Protein 6.4 g/dL 6.4-8.9 Laboratory test finding 03/12/2014 C Reactive Protein 26.57 mg/L High < 5.00 89 Erythrocyte Sed Rate 38 mm/Hr High 0-14 Pathologist Review (See Note) 90 CBC Auto Diff 03/12/2014 Abs Basophils 0.2 [...] Creatinine 0.69 mg/dL 0.67-1.17 Egfr 164.2 >60 91 Egfr Non- 127.6 >60 Globulin 2.6 g/dL [...] A1c 8.7 % High Less than 6.0 92 Liver Function Tests 01/01/2014 Alb/Glob 1.1 ratio [...] 01/01/2014 Glycohemoglobin (A1c) 9.0 % High 4.8-6.0 93 eAG 212 mg/dL Basic Metabolic Panel 01/01/2014 Anion Gap 10 mEq/L 8-16 BUN 22 mg/dL 5-23 BUN/Creat 27.5 ratio Calcium 9.2 mg/dL 8.5-10.1 Carbon Dioxide 27 mEq/L 18-29 Chloride 104 mmol/L 98-107 Creatinine 0.8 mg/dL 0.5-1.4 Glom Filtration Rate, Estimate >60 mL/min >60 Glucose 264 mg/dL High 76-115 If >60 mL/min >60 94 Potassium 4.1 mmol/L 3.5-5.1 Sodium 137 mmol/L 136-145 Laboratory test 10/29/2013 Microalbumin,Random Urine 10.4 mg/L 0.0-18.5 finding Glycohemoglobin A1c 10/07/2013 Glycohemoglobin (A1c) 9.5 % High 4.8-6.0 95 eAG 226 mg/dL Comp Metabolic Panel 09/26/2013 [...] Creatinine 0.83 mg/dL 0.67-1.17 Egfr 132.6 >60 96 Egfr Non- 103.1 >60 Globulin 2.3 g/dL [...] Reactive Protein 9.32 mg/L High < 5.00 97 Erythrocyte Sed Rate 11 mm/Hr 0-14 Laboratory test finding 07/08/2013 Hemoglobin A1c 9.6 % High Less than 6.0 98 Vitamin D 1,25-Dihydroxy 71 pg/mL 18-64 99 Comp Metabolic Panel 07/08/2013 Albumin 4.1 g/dL 3.6-5.4 Albumin/Globulin Ratio 1.5 1-3 Alkaline Phosphatase 68 U/L 30-110 Alt 34 U/L 14-54 Anion Gap 10.0 mmol/L 2-11 Ast 24 U/L 12-42 BUN/Creatinine Ratio 30.0 High 8-20 Blood Urea Nitrogen 24 mg/dL 6-24 Calcium 9.6 mg/dL 8.1-9.9 Chloride 98 mmol/L Low 101-111 Co2 Carbon Dioxide 28.0 mmol/L 22-32 Creatinine 0.80 mg/dL 0.50-1.40 Egfr 139.1 >60 100 Egfr Non- 108.2 >60 Globulin 2.8 g/dL 2-4 Glucose 255 mg/dL High 70-100 Potassium 4.3 mmol/L 3.5-5.0 Sodium 136 mmol/L 133-145 Total Bilirubin 0.7 mg/dL 0.4-1.5 Total Protein 6.9 g/dL 6.2-8.1 Laboratory test finding 04/24/2013 Hemoglobin A1c 8.5 % High Less than 6.0 101 Comp Metabolic Panel 04/24/2013 Albumin 3.8 g/dL 3.6-5.4 Albumin/Globulin Ratio 1.8 1-3 Alkaline Phosphatase 54 U/L 30-110 Alt 27 U/L 14-54 Anion Gap 9.0 mmol/L 2-11 Ast 18 U/L 12-42 BUN/Creatinine Ratio 20.0 8-20 Blood Urea Nitrogen 16 mg/dL 6-24 Calcium 9.2 mg/dL 8.1-9.9 Chloride 98 mmol/L Low 101-111 Co2 Carbon Dioxide 29.0 mmol/L 22-32 Creatinine 0.80 mg/dL 0.50-1.40 Egfr 139.1 >60 102 Egfr Non- 108.2 >60 Globulin 2.1 g/dL 2-4 Glucose 202 mg/dL High 70-100 Potassium 4.3 mmol/L 3.5-5.0 Sodium 136 mmol/L 133-145 Total Bilirubin 0.5 mg/dL 0.4-1.5 Total Protein 5.9 g/dL Low 6.2-8.1 Lipid Profile (Trig/Chol/HDL) 04/24/2013 Cholesterol 324 mg/dL High Less than 200 Cholesterol/HDL Ratio 5.9 Average High 1-4.44 HDL Cholesterol 55 mg/dL 40-60 103 LDL Cholesterol 200.6 High Less Than 100 104 Triglycerides 342 mg/dL High 40-200 1 Because ethnic data is not always readily [...] 15-29 5 Kidney failure <15 (or dialysis) 2 Because ethnic data is not always [...] 5 Kidney failure <15 (or dialysis) 3 ORDERED 06/29/17 EXPIRES 12/28/17 4 ORDERED 06/29/17 EXPIRES 12/28/17 5 E11.9 6 Elevated levels of HbA1c suggest the need for more aggressive treatment of glycemia. The [employer] recommends that a primary goal of therapy should be a HbA1c of <7% and that physicians should re-evaluate the treatment regimen in patients with HbA1c values consistently >8%. 7 Because ethnic data is not always readily [...] 15-29 5 Kidney failure <15 (or dialysis) 8 ADDITIONAL INFORMATION Testing performed by [facility]. This test was developed and its performance characteristics determined by [facility] in a manner consistent with CLIA requirements. This test has not been cleared or approved by the U.S. Food and Drug Administration. 9 ADDITIONAL INFORMATION Testing performed by Liquid Chromatography-Tandem Mass Spectrometry (LC-MS/MS). This test was developed and its performance characteristics determined by [facility] in a manner consistent with CLIA requirements. This test has not been cleared or approved by the U.S. Food and Drug Administration. Test Performed by: [facility] [address] [place] [address] 10 Therapeutic target for the treatment of diabetes mellitus patients is <7% HBA1C, and in selective patients <6.0%. Please refer to [employer] diabetic care guidelines for further information. 11 L02.214 12 MODERATE EPITHELIAL CELLS 13 FEW GRAM POSITIVE COCCI 14 RARE WHITE BLOOD CELLS 15 MIXED SKIN FAMILIA 16 WOUND ON GENITAL AREA 17 NO GROWTH: FINAL REPORT 18 NO GROWTH: FINAL REPORT 19 Note: Persistent reduction for 3 months or more in an eGFR <60 mL/min/1.73 m2 defines CKD. Patients with eGFR values >/=60 mL/min/1.73 m2 may also have CKD if evidence of persistent proteinuria is present. The original MDRD equation for estimated GFR is not valid for patients less than 18 years of age. Additional information may be found at www.[email or web address].org. 20 NO GROWTH: FINAL REPORT 21 NO GROWTH: FINAL REPORT 22 URINE, CLEAN CATCH 23 E11.9, R94.5 Z20.2 24 Elevated levels of HbA1c suggest the need for more aggressive treatment of glycemia. The [employer] [employer] recommends that a primary goal of therapy should be a HbA1c of <7% and that physicians should re-evaluate the treatment regimen in patients with HbA1c values consistently >8%. 25 Adult male reference interval is based on a population of healthy nonobese males (BMI <30) between 19 and 39 years old. tanner Newell.al. JCEM 2017,102;1288-8459. PMID: [id number]. 26 Results verified by repeat testing 27 >999.9 Calculated value greater than reporting limitations. Performed at: RN - [facility] [id number] Sales Training Coordinator: Gisele Milan MD, Phone: [phone] Performed at: [address] [id number] Sales Training Coordinator: Dayron Lim MD, Phone: [phone] 28 A negative result for either C. trachomatis and/or N. gonorrhoeae does not preclued an infection because results are dependent on adequate specimen collection, absence of inhibitors, and sufficient DNA to be detected. 29 ORDERED 06/29/17 EXPIRES 12/28/17 30 RBC indices suggestive of a thalassemia. Recommend correlation with hemoglobin electrophoresis. Reviewed by Katie Fontana MD 31 Because ethnic data is not always readily [...] 15-29 5 Kidney failure <15 (or dialysis) 32 Acute inflammation: >10.00 33 Consistent with Previous Results Reported on 10/09/17 34 Because ethnic data is not always [...] 5 Kidney failure <15 (or dialysis) 35 I10 E11.9 E78.2 36 Reference Guidelines*: Desirable: ........... < 200 mg/dL Borderline High: ..... 200-239 mg/dL High: ................ >=240 mg/dL * The National Cholesterol Education Program (NCEP) 37 Reference Guidelines*: Normal: ............. < 150 mg/dL Borderline High: .... 150-199 mg/dL High: ............... 200-499 mg/dL Very High: .......... > 500 mg/dL * Source: National Cholesterol Education Program (NCEP) 38 Reference Guidelines*: Low HDL: ..... < 40 mg/dL Normal: ..... 40-60 mg/dL Desirable: ... > 60 mg/dL *The National Cholesterol Education Program(NCEP) 39 Reference Guidelines*: Optimal:........... <100 mg/dL Near Optimal....... 100-129 mg/dL Borderline High.... 130-159 mg/dL High............... 160-189 mg/dL Very High.......... >=190 mg/dL * Source: National Cholesterol Education Program (NCEP) 40 Elevated levels of HbA1c suggest the need for more aggressive treatment of glycemia. The [employer] recommends that a primary goal of therapy should be a HbA1c of <7% and that physicians should re-evaluate the treatment regimen in patients with HbA1c values consistently >8%. 41 E11.9 42 Elevated levels of HbA1c suggest the need for more aggressive treatment of glycemia. The [employer] recommends that a primary goal of therapy should be a HbA1c of <7% and that physicians should re-evaluate the treatment regimen in patients with HbA1c values consistently >8%. 43 No interferon-gamma response to M. tuberculosis antigens was detected. Infection with M. tuberculosis is unlikely. A negative result alone does not exclude infection with M. tuberculosis. For detailed information regarding test interpretation see: [email or web address]-[email or web address]/ [email or web address] 44 Test Performed by: [address] [address] 45 1x order 46 1x order 47 1x order 48 1x order 49 QuantiFERON-TB Gold In-Tube, B was cancelled on 10/12/2016 at 09:59; One or more of collection tubes was under-filled (<0.8 mL sample). 50 QuantiFERON-TB Gold In-Tube, B was cancelled [...] under-filled (<0.8 mL sample). Test Performed by: [address] [address] 53 Elevated levels of HbA1c suggest the need for more aggressive treatment of glycemia. The [employer] recommends that a primary goal of therapy should be a HbA1c of <7% and that physicians should re-evaluate the treatment regimen in patients with HbA1c values consistently >8%. 54 Elevated levels of HbA1c suggest the need for more aggressive treatment of glycemia. The [employer] recommends that a primary goal of therapy should be a HbA1c of <7% and that physicians should re-evaluate the treatment regimen in patients with HbA1c values consistently >8%. 55 Note: Persistent reduction for 3 months or more in an eGFR <60 mL/min/1.73 m2 defines CKD. Patients with eGFR values >/=60 mL/min/1.73 m2 may also have CKD if evidence of persistent proteinuria is present. The original MDRD equation for estimated GFR is not valid for patients less than 18 years of age. Additional information may be found at www.[email or web address]. 56 Elevated levels of HbA1c suggest the need for more aggressive treatment of glycemia. The [employer] recommends that a primary goal of therapy should be a HbA1c of <7% and that physicians should re-evaluate the treatment regimen in patients with HbA1c values consistently >8%. 57 Reference Guidelines*: Desirable: ........... < 200 mg/dL Borderline High: ..... 200-239 mg/dL High: ................ >=240 mg/dL * The National Cholesterol Education Program (NCEP) 58 Reference Guidelines*: Normal: ............. < 150 mg/dL Borderline High: .... 150-199 mg/dL High: ............... 200-499 mg/dL Very High: .......... > 500 mg/dL * Source: National Cholesterol Education Program (NCEP) 59 Reference Guidelines*: Low HDL: ..... < 40 mg/dL Normal: ..... 40-60 mg/dL Desirable: ... > 60 mg/dL *The National Cholesterol Education Program(NCEP) 60 Reference Guidelines*: Optimal:........... <100 mg/dL Near Optimal....... 100-129 mg/dL Borderline High.... 130-159 mg/dL High............... 160-189 mg/dL Very High.......... >=190 mg/dL * Source: National Cholesterol Education Program (NCEP) 61 Values below the stated reference ranges of AST and ALT can be seen in normal populations. Clinical correlation is suggested. 62 Because ethnic data is not always readily [...] 15-29 5 Kidney failure <15 (or dialysis) 63 Acute inflammation: >10.00 64 Note: Persistent reduction for 3 months or more in an eGFR <60 mL/min/1.73 m2 defines CKD. Patients with eGFR values >/=60 mL/min/1.73 m2 may also have CKD if evidence of persistent proteinuria is present. The original MDRD equation for estimated GFR is not valid for patients less than 18 years of age. Additional information may be found at www.[email or web address]. 65 Elevated levels of HbA1c suggest the need for more aggressive treatment of glycemia. The [employer] [employer] recommends that a primary goal of therapy should be a HbA1c of <7% and that physicians should re-evaluate the treatment regimen in patients with HbA1c values consistently >8%. 66 Acute inflammation: >10.00 67 Because ethnic data is not always readily [...] 15-29 5 Kidney failure <15 (or dialysis) 68 Because ethnic data is not always [...] 5 Kidney failure <15 (or dialysis) 69 Acute inflammation: >10.00 70 Note: Persistent reduction for 3 months or more in an eGFR <60 mL/min/1.73 m2 defines CKD. Patients with eGFR values >/=60 mL/min/1.73 m2 may also have CKD if evidence of persistent proteinuria is present. The original MDRD equation for estimated GFR is not valid for patients less than 18 years of age. Additional information may be found at www.[email or web address]. 71 Elevated levels of HbA1c suggest the need for more aggressive treatment of glycemia. The [place] [employer] recommends that a primary goal of therapy should be a HbA1c of <7% and that physicians should re-evaluate the treatment regimen in patients with HbA1c values consistently >8%. 72 Reference Guidelines*: Desirable: ........... < 200 mg/dL Borderline High: ..... 200-239 mg/dL High: ................ >=240 mg/dL * The National Cholesterol Education Program (NCEP) 73 Reference Guidelines*: Normal: ............. < 150 mg/dL Borderline High: .... 150-199 mg/dL High: ............... 200-499 mg/dL Very High: .......... > 500 mg/dL * Source: National Cholesterol Education Program (NCEP) 74 Reference Guidelines*: Low HDL: ..... < 40 mg/dL Normal: ..... 40-60 mg/dL Desirable: ... > 60 mg/dL *The National Cholesterol Education Program(NCEP) 75 Reference Guidelines*: Optimal:........... <100 mg/dL Near Optimal....... 100-129 mg/dL Borderline High.... 130-159 mg/dL High............... 160-189 mg/dL Very High.......... >=190 mg/dL * Source: National Cholesterol Education Program (NCEP) 76 Because ethnic data is not always readily [...] 15-29 5 Kidney failure <15 (or dialysis) 77 Acute inflammation: >10.00 78 Note: Persistent reduction for 3 months or more in an eGFR <60 mL/min/1.73 m2 defines CKD. Patients with eGFR values >/=60 mL/min/1.73 m2 may also have CKD if evidence of persistent proteinuria is present. The original MDRD equation for estimated GFR is not valid for patients less than 18 years of age. Additional information may be found at www.[email or web address]. 79 Elevated levels of HbA1c suggest the need for more aggressive treatment of glycemia. The [employer] recommends that a primary goal of therapy should be a HbA1c of <7% and that physicians should re-evaluate the treatment regimen in patients with HbA1c values consistently >8%. 80 Note: Persistent reduction for 3 months or more in an eGFR <60 mL/min/1.73 m2 defines CKD. Patients with eGFR values >/=60 mL/min/1.73 m2 may also have CKD if evidence of persistent proteinuria is present. The original MDRD equation for estimated GFR is not valid for patients less than 18 years of age. Additional information may be found at www.[email or web address]. 81 Elevated levels of HbA1c suggest the need for more aggressive treatment of glycemia. The [employer] recommends that a primary goal of therapy should be a HbA1c of <7% and that physicians should re-evaluate the treatment regimen in patients with HbA1c values consistently >8%. 82 Reference Guidelines*: Desirable: ........... < 200 mg/dL Borderline High: ..... 200-239 mg/dL High: ................ >=240 mg/dL * The National Cholesterol Education Program (NCEP) 83 Reference Guidelines*: Low HDL: ..... < 40 mg/dL Normal: ..... 40-60 mg/dL Desirable: ... > 60 mg/dL *The National Cholesterol Education Program(NCEP) 84 Reference Guidelines*: Optimal:........... <100 mg/dL Near Optimal....... 100-129 mg/dL Borderline High.... 130-159 mg/dL High............... 160-189 mg/dL Very High.......... >=190 mg/dL * Source: National Cholesterol Education Program (NCEP) 85 Reference Guidelines*: Normal: ............. < 150 mg/dL Borderline High: .... 150-199 mg/dL High: ............... 200-499 mg/dL Very High: .......... > 500 mg/dL * Source: National Cholesterol Education Program (NCEP) 86 Acute inflammation: >10.00 87 Because ethnic data is not always readily [...] Kidney damage with mild decrease in GFR 60- 89 3 Moderate decrease in GFR 30-59 4 Severe decrease in GFR 15-29 5 Kidney failure <15 (or dialysis) 88 Potassium reference range changed effective 05/18/14 89 Acute inflammation: >10.00 90 Leukocytosis with absolute neutrophilia, favor reactive. Reviewed by Katie Fontana MD 91 Because ethnic data is not always readily [...] Kidney damage with mild decrease in GFR 60- 89 3 Moderate decrease in GFR 30-59 4 Severe decrease in GFR 15-29 5 Kidney failure <15 (or dialysis) 92 Therapeutic target for the treatment of diabetes Mellitus patients is <7% HBA1C, and in selective patients <6.0%.Please refer to [employer] Diabetic care guidelines for further information. 93 A1c value between 5.7% and 6.4% is considered at increased risk for diabetes. A1c value greater than 6.5 % is considered essentially diagnostic for Type II diabetes. Current guidelines recommend a treatment goal of <7% for diabetic patients. This method will measure glycosylated hemoglobin variants, HbS, HbG , HbH, HbWayne, HbC, HbE, etc. Other hemoglobin- opathies may give incorrect results with this test. 94 Note: Persistent reduction for 3 months or more in an eGFR <60 mL/min/1.73 m2 defines CKD. Patients with eGFR values >/=60 mL/min/1.73 m2 may also have CKD if evidence of persistent proteinuria is present. The original MDRD equation for estimated GFR is not valid for patients less than 18 years of age. Additional information may be found at www.[email or web address]. 95 A1c value between 5.7% and 6.4% is considered at increased risk for diabetes. A1c value greater than 6.5 % is considered essentially diagnostic for Type II diabetes. Current guidelines recommend a treatment goal of <7% for diabetic patients. This method will measure glycosylated hemoglobin variants, HbS, HbG , HbH, HbWayne, HbC, HbE, etc. Other hemoglobin- opathies may give incorrect results with this test. 96 Because ethnic data is not always readily [...] Kidney damage with mild decrease in GFR 60- 89 3 Moderate decrease in GFR 30-59 4 Severe decrease in GFR 15-29 5 Kidney failure <15 (or dialysis) 97 Acute inflammation: >10.00 In accordance with FDA guideline, CRP is now reported in mg/L, previous reporting was in mg/dL. 98 Therapeutic target for the treatment of diabetes Mellitus patients is <7% HBA1C, and in selective patients <6.0%.Please refer to [employer] [employer] Diabetic care guidelines for further information. 99 Test Performed by: [address] [address] [address] Light Servicer: Devon Keller III, M.D. 100 Because ethnic data is not always readily [...] Kidney damage with mild decrease in GFR 60- 89 3 Moderate decrease in GFR 30-59 4 Severe decrease in GFR 15-29 5 Kidney failure <15 (or dialysis) 101 Therapeutic target for the treatment of diabetes Mellitus patients is <7% HBA1C, and in selective patients <6.0%.Please refer to [employer] Diabetic care guidelines for further information. 102 Because ethnic data is not always readily [...] Kidney damage with mild decrease in GFR 60- 89 3 Moderate decrease in GFR 30-59 4 Severe decrease in GFR 15-29 5 Kidney failure <15 (or dialysis) 103 HDL Interpretation: Undesirable: High Risk: Less than 40 mg/dL Desirable: Low Risk: Greater than 60 mg/dL 104 LDL Interpretation: Low Risk Optimal Level: LDL Less than 100 mg/dL Near or Above Optimal: LDL 100-129 mg/dL Borderline High Risk: LDL 130-159 mg/dL High Risk : LDL 160-189 mg/dL Very High Risk: LDL Greater than 189 mg/dL Procedures Date CPT Code Description Status Comment 11/20/2017 44866 I & D Of Abscess/Simple Or Completed Single 05/24/2017 Diabetic Foot Exam Completed 09/15/2016 94612 Apply Splint Finger Static Completed 08/24/2016 38242 Apply Splint Finger Static Completed 08/04/2016 95047 Apply Splint Finger Static Completed 07/25/2016 69712 Removal Foreign Body From Completed External Auditory Canal-W/O Gen. Anesth 03/10/2015 12929 Neuroplasty median nerve at Completed carpal tunnel 03/10/2015 36327 Anesthesia, Lower Arm Surgery Completed (Nerve,Muscle,Tendon,Fascia,Bu rsa) 01/06/2015 07934 Nerve Conduction 7-8 Studies Completed 01/06/2015 21677 Needle Electromyography Completed Complete, Five Or More Muscles Studied 12/15/2014 13639 Radiology, Elbow Complete Completed 10/23/2014 Bone Mineral Density Test Completed OSTEOPOROSIS FROM PREDNISONE - FOLLOWED BY DR. VICTORIA 02/12/[address] 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 46804 N48.21 Office Visit 12/01/2017 11:15a Urology Layne Wetzel M.D. 14280 N48.21 Office Visit 11/23/2017 10:30a Urology Layne Wetzel M.D. 68972 N48.21 Office Visit 11/20/2017 9:45a Urology Layne Wetzel M.D. 68951 N48.21 Office Visit 11/17/2017 11:30a Family Medicine Malika Myers 77366 L03.314 [employer] COMPANY MANAGER Office Visit 11/13/2017 10:00a Family Malika Beth 72726 E11.9 [employer] COMPANY MANAGER I10 R94.5 Z20.2 Office Visit 05/24/2017 8:30a Family Malika Beth FNP 46121 I10 E11.9 M06.9 M65.871 M25.511 Office Visit 02/15/2017 8:45a Orthopaedic Office Jorge Luis Salinas M.D. 40491 M20.012 Office Visit 12/07/2016 8:45a Orthopaedic Office Jorge Luis Salinas M.D. 26495 M20.012 Office Visit 11/21/2016 10:30a Family Medicine LuciaStaceyalbino, 52860 E11.9 [employer] COMPANY MANAGER M06.9 M20.012 Office Visit 10/24/2016 1:30p Orthopaedic Office Jorge Luis Salinas M.D. 53922 M20.012 Office Visit 09/30/2016 9:30a Orthopaedic Office Jorge Luis Salinas M.D. 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 48767 E11.9 Office Visit 01/06/2016 1:00p Family Kiki Armas M.D. 71410 E11.9 E78.2 I10 Office Visit 04/14/2015 10:00a Kiki Gillespie M.D. 12667 E11.9 E78.2 I10 Office Visit 02/20/2015 10:00a Orthopaedic Office Sushant Geronimo M.D. 94078 354.0 Office Visit 01/08/2015 1:15p Orthopaedic Office Sushant Geronimo M.D. 81333 354.0 Office Visit 12/15/2014 1:15p Orthopaedic Office Sushant Geronimo M.D. 78716 719.43 354.0 Office Visit 12/12/2014 10:30a [facility] Kiki Gu M.D. 16934 250.00 272.4 401.1 719.42 Plan of Care 03/21/2018 - Malika Myers, FNPZ01.818 Encounter for other preprocedural examinationComments:EKG read [...] for well controlled DM - surgery as [id number] Type 2 diabetes mellitus without complicationsComments:Well controlled based on fasting sugars of 80-100.
[2018-04-10] MEDS ORDERED: Midazolam* 1 MG/ML 2 ML VIAL (2 MG) ONE (09:09)
[2018-04-10] MEDS ORDERED: fentaNYL* 50 MCG/ML 2 ML VIAL (100 MCG VIAL) ONE ×4 (09:09→15:12)
[2018-04-10] MEDS ORDERED: Propofol* 10 MG/ML 20 ML BTL IV PUSH ONE (09:13)
[2018-04-10] MEDS ORDERED: Lidocaine 2% PF * 5 ML VIAL ONE (09:13)
[2018-04-10] MEDS ORDERED: ROPIVACAINE 5 MG/ML 30 ML BTL (0.5%) ONE ×2 (09:46→10:36)
[2018-04-10] MEDS ORDERED: ceFAZolin 2 GM in NS PREMIX(*) 2 GM/100 ML BAG IVPB ONE (09:47)
[2018-04-10] MEDS ORDERED: Tranexamic Acid 1,000 MG/10 ML SDV IV ONE (10:22)
[2018-04-10] MEDS ORDERED: Rocuronium* 10 MG/ML VIAL ONE (10:30)
[2018-04-10] MEDS ORDERED: Lidocaine 1%* 5 ML VIAL ONE (10:36)
[2018-04-10] MEDS ORDERED: Morphine VIAL* 10 MG/ML 1 ML VIAL ONE (11:50)
[2018-04-10] MEDS ORDERED: Metoclopramide IV* 5 MG/ML 2 ML VIAL ONE (11:52)
[2018-04-10] MEDS ORDERED: Succinylcholine* 20 MG/ML 10 ML VIAL ONE (11:58)
[2018-04-10] MEDS ORDERED: DiMENhydriNATE IV* 50 MG/ML VIAL IV PUSH PRN (12:18)
[2018-04-10] MEDS ORDERED: Naloxone* 0.4 MG/ML 1 ML VIAL IV PRN (12:18)
[2018-04-10] MEDS ORDERED: Acetaminophen TAB* 325 MG PO PRN (12:18)
[2018-04-10] MEDS ORDERED: HYDROcodone/ACETAMIN 5-325 MG* 1 TAB PO PRN (12:18)
[2018-04-10] MEDS ORDERED: Ibuprofen TAB* 600 MG PO PRN (12:18)
[2018-04-10] MEDS ORDERED: Ondansetron INJ* 2 MG/ML VIAL IV PRN (12:18)
[2018-04-10] MEDS ORDERED: Desflurane* 240 ML INH ONE (13:21)
[2018-04-10] MEDS ORDERED: Ondansetron INJ* 2 MG/ML VIAL ONE (14:07)
[2018-04-10] MEDS ORDERED: Polyethylene Glycol 3350* 17 GM PACKET PO PRN (14:29)
[2018-04-10] MEDS ORDERED: diPHENhydraMINE IV* 50 MG/ML 1 ml VIAL (BENADRYL) IV PRN (14:29)
[2018-04-10] MEDS ORDERED: oxyCODONE/Acetamin 5/325 MG* TAB PO PRN (14:29)
[2018-04-10] MEDS ORDERED: Bisacodyl SUPP* 10 MG SUPP PR PRN (14:29)
[2018-04-10] MEDS ORDERED: Magnesium Hydroxide LIQ* 30 ML UDC PO PRN (14:29)
[2018-04-10] MEDS ORDERED: HYDROmorphone INJ1* 1 MG/ML SYRINGE ONE ×2 (14:36→15:13)
[2018-04-10] MEDS: HYDROmorphone INJ1* 1 MG/ML SYRINGE IV PRN ×2 (14:37→14:46)
[2018-04-10] MEDS: fentaNYL* 50 MCG/ML 2 ML VIAL (100 MCG VIAL) IV PRN ×5 (14:40→16:00)
[2018-04-10] MEDS ORDERED: Meperidine Carpuject* 75 MG/ML CARPUJECT SYRINGE IV PRN (14:40)
[2018-04-10] MEDS ORDERED: Labetalol IV* 5 MG/ML 20 ML VIAL ONE (14:48)
[2018-04-10] MEDS ORDERED: Labetalol IV* 5 MG/ML 20 ML VIAL IV PUSH ONE ×2 (14:49→15:05)
[2018-04-10] MEDS ORDERED: Acetaminophen IV 1GM/100ML * 1,000 MG/100 ML VIAL IVPB ONE (15:03)
[2018-04-10] MEDS ORDERED: HYDROmorphone INJ1* 1 MG/ML SYRINGE IV PRN (15:04)
[2018-04-10] MEDS ORDERED: Labetalol IV* 5 MG/ML 20 ML VIAL IV PUSH PRN (15:06)
[2018-04-10] MEDS ORDERED: Acetaminophen IV 1GM/100ML * 100 ML ONE (15:07)
[2018-04-10] MEDS ORDERED: DiMENhydriNATE IV* 50 MG/ML VIAL ONE (15:31)
--- NOTE | 2018-04-10 15:44 | RAD ---
INDICATION: Status post total left knee replacement surgery. COMPARISON: Comparison is made with a prior study from September 29, 2017. TECHNIQUE: 2 views of the left knee were obtained. FINDINGS: The patient is status post total left knee replacement surgery. The bones and prostheses are in normal alignment. There is air within the joint space and soft tissues consistent with the patient's recent surgery. IMPRESSION: STATUS POST TOTAL LEFT KNEE REPLACEMENT SURGERY.
[2018-04-10] MEDS ORDERED: Dextrose 50% Syringe 50 ML* 25 GM/50 ML SYRINGE IV PUSH PRN (16:57)
[2018-04-10] MEDS ORDERED: Warfarin TAB(*) 6 MG PO ONE (17:00)
--- NOTE | 2018-04-10 17:18 | CONSULT ---
Subjective Date of Service: 04/10/18 Interval History: Pt is a 42 year old male with a PMH DM with diabetic neuropathy, Rheumatoid Arthritis and chronic pain, HTN, HLD, IBS, and GERD, admitted on 04/10/18 for elective left total knee arthroplasty with Dr Gutierrez due to end stage osteoarthritis that failed conservative management. Postoperatively, patient endorses some nausea and surgical site pain that is being managed with PRN pain regimen per ortho. Denies chest pain, shortness of breath or edema. Good post op urine output, with 800mL clear yellow urine from via luong. Pt has experienced some post-op hypertension up to 181/105, which was managed with IV labetolol. Patient states that leading up to the surgery he was in his usual state of health. Hospitalists were asked to assist with the management of this patient during the postoperative period. Review of Systems - Measurements Intake and Output: Intake and Output Last 24 Hours 04/08/18 04/09/18 04/10/18 04/11/18 06:59 06:59 06:59 06:59 Intake Total 1900 Output Total 800 Balance 1100 Weight 68.039 kg Intake: IV Fluids 1900 LR 1800 NS 100ML, Cefazolin 2G 100 Output: Luong 800 - Review of Systems Constitutional Symptoms: Negative: Weight Gain, Weight Loss, Weakness, Fatigue, Fever, Night Sweats, Unexplained Falls, Other Dermatology: Negative: Normal, Rash, Skin Lesions, Cancer, Skin Lumps, Other HEENT: Negative: Normal, Change in Hearing, Vertigo, Dental Problems, Tinnitus, Sinus Problem, Other Eyes: Negative: Normal, Change in Vision, Double Vision, Eye Pain, Glaucoma, Cataract, Contacts or Glasses, Other Thyroid: Negative: Normal, Goiter, Thyroid Nodule, Cold Intolerance, Heat Intolerance , Sweatiness, Tremor, Frequent Defecation, Constipation, Palpitations, Primary Hypothyroidism, Primary Hyperthyroidism, Weight Loss, Weight Gain, Change in Skin/Hair, Change in Menstruation, Radiation Exposure, Other Pulmonary: Negative: Normal, Cough, Sputum, Hemoptysis, Wheezing, Respiratory Distress, Shortness of Breath, COPD, Asthma, Exercise Intolerance, Home Oxygen, Other Cardiology: Negative: Normal, Chest Pain, Shortness of Breath, Palpitations, Swelling of Ankles, Peripheral Vascular Dis, Edema, Faintness, Syncope, Claudication, Proximal NocturnalDyspnea, Orthopnoea, Other Gastroenterology: Negative: Normal, Abdominal Pain, Nausea, Vomiting, Anorexia, Indigestion, Difficulty Swallowing, Heartburn, Constipation, Diarrhea, Blood in Stools, Change in Bowel Habits, Haematemesis, Melena, Other Genital - Urinary: Negative: Normal, Dysuria, Hematuria, Polyuria, Nocturia, Other Genitourinary - Male: Negative: Prostatism, Erectile Dysfunction, Family Hx of Prostate Cancer, Other Musculoskeletal: Negative: Joint Pain, Joint Stiffness, Arthritis, Osteoporosis, Low Back Pain , Sciatica, Joint Deformities, Kyphoscoliosis, Other Endocrinology: Negative: Normal, Thyroid Problems, Adrenal Problems, Gonadal Problems, Family Hx Endocrine Disorders, Obesity, Diabetes Mellitus, Hyperglycemia, Hx Hypoglycemia, Diabetic Foot Ulcers, Calluses, Hirsutism, Menstral Abnormalities , Polydipsia, Polyuria, Gonadal Problems, Gynecomastia, Pituitary disease, Other Hematologic/Lymphatic: Negative: Anemia, Easy Brusing, Hx Leukemia, Hx Lymphoma, Use of Anticoagulant, Use of Antiplatelet Drugs, Other Neurology: Negative: Normal, Headache, Migraines, Change in Vision, Diplopia, Dizziness , Change in Balancing, Change in Coordination, Change in Memory, Change in Speech, Change in Sphincter Function, Change in Walking, Numbness\Paresthesiae, Unexplained Weakness, Hx of Stroke\TIA, Hx of Seizures, Other Psychiatry: Negative: Normal, Depression, Anxiety, Depressed Mood, Adhedonia, Sexual Dysfunction, Weight Change, Guilt Feelings, Tearfulness, Unusual Fatigue, Unusual Anxiety, Suicidal Ideation, Hypomania, Eating Disorders, Other Allergic/Immunologic: Negative: Hx Anaphylaxis, Hx Angioedema, Hx Environmental, Hx Seasonal, Athsma, Hx HIV, Immunocompromise, Swollen Glands LymphNodes, Other Objective Active Medications: Acetaminophen (Tylenol Tab*) 975 mg PO Q8H VAL[facility] Hydrocodone Bitart/Acetaminophen ([place] 5-325 Tab*) 2 tab PO ONCE PRN PRN Reason: PAIN - MODERATE Stop: 04/10/18 17:04 Atenolol (Tenormin Tab*) 25 mg PO BID [facility] Bisacodyl (Dulcolax Supp*) 10 mg KS DAILY PRN PRN Reason: constipation Cyclobenzaprine HCl (Flexeril Tab*) 10 mg PO TID PRN PRN Reason: SPASMS Dextrose (D50w Syringe 50 Ml*) 12.5 gm IV PUSH .FOR FS < 60 - SS PRN PRN Reason: FS < 60 Dicyclomine HCl (Bentyl Cap*) 20 mg PO TID [facility] Diphenhydramine HCl (Benadryl Iv*) 12.5 mg IV Q6H PRN PRN Reason: PRURITIS Docusate Sodium (Colace Cap*) 100 mg PO BID [facility] Enoxaparin Sodium (Lovenox(*)) 30 mg SUBCUT Q24H [facility] Gabapentin (Neurontin Cap(*)) 300 mg PO TID [facility] Hydromorphone HCl (Dilaudid Inj1s*) 0.5 mg IV Q10M PRN PRN Reason: PAIN - SEVERE Last Admin: 04/10/18 15:13 Dose: 0.5 mg Lactated Ringer's (Lactated Ringers 1000 Ml Bag*) 1,000 mls @ 125 mls/hr IV PER RATE [facility] Stop: 04/10/18 17:03 Last Admin: 04/10/18 09:34 Dose: 125 mls/hr Cefazolin Sodium/Dextrose (Kefzol 1 Gm In Dextrose Duplex (*)) 1 gm in 50 mls @ 200 mls/hr IVPB Q8H [facility] Stop: 04/11/18 12:14 Lactated Ringer's (Lactated Ringers 1000 Ml Bag*) 1,000 mls @ 100 mls/hr IV PER RATE [facility] Ibuprofen (Motrin Tab*) 600 mg PO ONCE PRN PRN Reason: PAIN - MILD Stop: 04/10/18 17:05 Insulin Human Lispro (Humalog*) 0 units SUBCUT ACHS [facility]; Protocol Labetalol HCl (Trandate Iv*) 5 mg IV PUSH ONCE ONE Stop: 04/10/18 14:50 Last Admin: 04/10/18 14:50 Dose: 5 mg Labetalol HCl (Trandate Iv*) 5 mg IV PUSH ONCE PRN PRN Reason: BLOOD PRESSURE Last Admin: 04/10/18 15:32 Dose: 5 mg Lactulose (Lactulose*) 30 ml PO Q6H PRN PRN Reason: constipation Lisinopril (Prinivil Tab*) 5 mg PO QAM [facility] Magnesium Hydroxide (Milk Of Magnesia Liq*) 30 ml PO BID [facility] Magnesium Hydroxide (Milk Of Magnesia Liq*) 30 ml PO Q6H PRN PRN Reason: constipation Meperidine HCl (Demerol Carpuject*) 25 mg IV ONCE PRN PRN Reason: PAIN/INFLAMMATION Last Admin: 04/10/18 14:55 Dose: 25 mg Morphine Sulfate (Morphine Vial*) 2 mg IV Q2H PRN PRN Reason: PAIN - SEVERE Naloxone HCl (Narcan*) 0.08 mg IV Q2M PRN PRN Reason: severe induced resp depression Stop: 04/10/18 17:05 Non-Formulary Medication (Etanercept [Enbrel Sureclick]) 1 dose SUBCUT QAM [facility] Non-Formulary Medication (Insulin Glargine,Hum.Rec.Anlog [Lantus Solostar 5x3 Ml Pens]) 7 units SUBCUT QAM [facility] Omeprazole (Prilosec Cap*) 20 mg PO QAM [facility] Ondansetron HCl (Zofran Inj*) 4 mg IV ONCE PRN PRN Reason: NAUSEA/VOMITING Stop: 04/10/18 17:05 Ondansetron HCl (Zofran Inj*) 4 mg IV Q6H PRN PRN Reason: nausea Ondansetron HCl (Zofran Tab*) 4 mg PO Q6H PRN PRN Reason: NAUSEA Oxycodone HCl (Roxycodone Tab*) 10 mg PO Q4H PRN PRN Reason: SEVERE PAIN Oxycodone/Acetaminophen (Percocet 5/325 Tab*) 1 tab PO Q4H PRN PRN Reason: PAIN Oxycodone/Acetaminophen (Percocet 5/325 Tab*) 2 tab PO Q4H PRN PRN Reason: PAIN Polyethylene Glycol/Electrolytes (Miralax*) 17 gm PO DAILY PRN PRN Reason: Constipation Prednisone (Deltasone Tab*) 3 mg PO BID [facility] Simvastatin (Zocor(Nf)) 40 mg PO QAM [facility] Tramadol HCl (Ultram*) 50 mg PO Q6H PRN PRN Reason: PAIN Vital Signs - 8 hr 04/10/18 04/10/18 04/10/18 09:15 14:29 14:30 Temperature 97.7 F Pulse Rate 62 91 89 Respiratory 16 19 Rate Blood Pressure 149/93 176/140 (mmHg) O2 Sat by Pulse 97 100 100 Oximetry 04/10/18 04/10/18 04/10/18 14:33 14:35 14:37 Temperature 97.3 F Pulse Rate 88 Respiratory 21 14 16 Rate Blood Pressure 176/96 195/107 (mmHg) O2 Sat by Pulse 100 Oximetry 04/10/18 04/10/18 04/10/18 14:40 14:46 14:50 Temperature Pulse Rate 96 Respiratory 16 17 16 Rate Blood Pressure 192/89 (mmHg) O2 Sat by Pulse 100 Oximetry 04/10/18 04/10/18 04/10/18 14:51 14:54 14:55 Temperature Pulse Rate 95 96 92 Respiratory 18 30 19 Rate Blood Pressure 183/128 191/123 174/118 (mmHg) O2 Sat by Pulse 99 100 100 Oximetry 04/10/18 04/10/18 04/10/18 15:00 15:05 15:06 Temperature Pulse Rate 91 88 Respiratory 15 19 16 Rate Blood Pressure 188/105 168/95 (mmHg) O2 Sat by Pulse 100 100 Oximetry 04/10/18 04/10/18 04/10/18 15:10 15:13 15:15 Temperature Pulse Rate 88 92 Respiratory 17 14 23 Rate Blood Pressure 172/91 163/93 (mmHg) O2 Sat by Pulse 100 99 Oximetry 04/10/18 04/10/18 04/10/18 15:30 15:45 16:00 Temperature Pulse Rate 89 72 87 Respiratory 19 1 14 Rate Blood Pressure 181/105 155/91 (mmHg) O2 Sat by Pulse 99 98 98 Oximetry 04/10/18 16:43 Temperature 98.3 F Pulse Rate 88 Respiratory 18 Rate Blood Pressure 160/90 (mmHg) O2 Sat by Pulse 100 Oximetry Oxygen Devices in Use Now: Nasal Cannula - 2L NC Eyes: No Scleral Icterus, PERRLA Ears/Nose/Mouth/Throat: NL Teeth, Lips, Gums, Clear Oropharnyx, Mucous Membranes Moist Neck: NL Appearance and Movements; NL JVP Respiratory: Symmetrical Chest Expansion and Respiratory Effort, Clear to Auscultation Cardiovascular: NL Sounds; No Murmurs; No JVD, RRR, No Edema Abdominal: NL Sounds; No Tenderness; No Distention Extremities: No Edema, No Clubbing, Cyanosis Skin: No Rash or Ulcers, No Nodules or Sclerosis Neurological: Alert and Oriented x 3 Lines/Tubes/Other Access: Clean, Dry and Intact Luong, Clean, Dry and Intact Peripheral IV Additional Lab and Data: Pre-op labs from 9/10/18 as follows: NA 141 K 4.7 Cl 102 CO2 33 BUN 19 Cr 0.95 Glu 102 WBC 9.2 Hgb 16 Hct 48 Plt 171 INR 0.92 EKG with normal sinus rhythm Assessment/Plan - Billing Assessment: Pt is a 42 year old male with a PMH DM, HTN, HLD, Rheumatoid Arthritis, GERD, IBS and depression admitted for elective left total knee arthroplasty with Dr Gutierrez on 04/10. Plan By Medical Problem: s/p Left total knee arthroplasty - POD 0 - Plan per ortho - Continue pain management regiment per ortho - Continue bowel regimen - Continue LR @ 125mL/hr - Will continue to trend H/H daily - DVT prophylaxis with lovenox bridge to coumadin DM - Holding home metformin - Continue home lantus, but add sliding scale lispro ACHS - Continue home gabapentin for diabetic nephropathy HTN - Pt has experienced some post-op HTN up to 181/105 and recieved labetolol 5mg x2 - Will restart home atenolol this evening as well as PRN labetolol - Consider restarting home lisinopril tomorrow HLD - Continue home simvastatin GERD - Continue home omeprazole RA - Continue home prednisone and enbrel IBS - Continue home dicyclomine VTE PPX: Lovenox bridge to coumadin Diet: Carb control diet Code Status: Full Code Admission Status and Rationale: Inpatient. Disposition plan per primary team, Ortho Attending: Jorge Luis Marion
[2018-04-10] MEDS: oxyCODONE/Acetamin 5/325 MG* TAB PO PRN ×2 (17:34→23:36)
[2018-04-10] MEDS: Ondansetron TAB* 4 MG PO PRN (17:36)
[2018-04-10] MEDS: traMADol TAB* 50 MG PO PRN (19:45)
[2018-04-10] MEDS: ceFAZolin 1 GM in Dextrose (*) 1 GM/50 ML BAG IVPB SCH (19:46)
[2018-04-10] MEDS ORDERED: PROCHLORPERAZINE INJ 5 MG/ML 2 ML VIAL IV PRN (20:02)
[2018-04-10] MEDS: Cyclobenzaprine TAB* 10 MG PO PRN (20:04)
[2018-04-10] MEDS: oxyCODONE TAB* 5 MG TAB PO PRN (20:50)
[2018-04-10] MEDS: Atenolol TAB* 25 MG PO SCH (20:50)
[2018-04-10] MEDS: Docusate CAP* 100 MG PO SCH (20:51)
[2018-04-10] MEDS: Gabapentin CAP(*) 300 MG PO SCH (20:51)
[2018-04-10] MEDS: predniSONE TAB* 1 MG PO SCH (20:51)
[2018-04-10] MEDS: Magnesium Hydroxide LIQ* 30 ML UDC PO SCH (20:52)
[2018-04-10] MEDS: Insulin LISPRO* 1 UNITS UNIT SUBCUT SCH (20:57)
[2018-04-10] MEDS ORDERED: METFORMIN HCL 1000 MG PO SCH (21:00)
[2018-04-10] MEDS: Morphine VIAL* 4 MG/ML VIAL (1 ml vial) IV PRN ×2 (21:12→23:37)
[2018-04-10] MEDS: Dicyclomine CAP* 10 MG PO SCH (21:17)
[2018-04-10] MEDS: Acetaminophen TAB* 325 MG PO SCH (23:41)
[2018-04-11] MEDS: oxyCODONE TAB* 5 MG TAB PO PRN ×4 (01:17→23:59)
[2018-04-11] MEDS: Ondansetron INJ* 2 MG/ML VIAL IV PRN ×2 (01:24→09:38)
[2018-04-11] MEDS: Morphine VIAL* 4 MG/ML VIAL (1 ml vial) IV PRN ×2 (01:47→09:31)
[2018-04-11] MEDS ORDERED: HYDROmorphone INJ1* 1 MG/ML SYRINGE IV ONE (02:34)
[2018-04-11] MEDS: traMADol TAB* 50 MG PO PRN ×2 (02:42→21:13)
[2018-04-11] MEDS: ceFAZolin 1 GM in Dextrose (*) 1 GM/50 ML BAG IVPB SCH ×2 (04:49→12:15)
[2018-04-11] MEDS: oxyCODONE/Acetamin 5/325 MG* TAB PO PRN ×5 (04:50→22:54)
[2018-04-11 05:43] LABS: Hematocrit 43 % (42-52); Hemoglobin 13.7 g/dl (14.0-18.0); Mean Platelet Volume 9.9 um3 (7.4-10.4); Platelet Count 135 10^3/ul (150-450)
[2018-04-11 06:00] LABS: INR 1.11 (0.77-1.02)
[2018-04-11] MEDS: Acetaminophen TAB* 325 MG PO SCH ×3 (06:12→22:52)
[2018-04-11 06:16] LABS: EGFR Non-African American 86.5 (>60)
[2018-04-11] MEDS: Omeprazole CAP* 20 MG PO SCH (07:06)
[2018-04-11] MEDS: Insulin LISPRO* 1 UNITS UNIT SUBCUT SCH ×5 (07:40→21:29)
[2018-04-11] MEDS ORDERED: ETANERCEPT SUBCUT SCH (09:00)
[2018-04-11] MEDS: Insulin GLARGINE(*) 1 UNITS UNIT SUBCUT SCH (09:12)
[2018-04-11] MEDS: Gabapentin CAP(*) 300 MG PO SCH ×3 (09:15→21:14)
[2018-04-11] MEDS: Dicyclomine CAP* 10 MG PO SCH ×3 (09:15→21:13)
[2018-04-11] MEDS: Docusate CAP* 100 MG PO SCH ×2 (09:15→21:14)
[2018-04-11] MEDS: Magnesium Hydroxide LIQ* 30 ML UDC PO SCH ×2 (09:15→21:13)
[2018-04-11] MEDS: Lisinopril TAB* 5 MG PO SCH (09:16)
[2018-04-11] MEDS: Atenolol TAB* 25 MG PO SCH ×2 (09:16→21:14)
[2018-04-11] MEDS: Atorvastatin* 20 MG TAB PO SCH (09:16)
[2018-04-11] MEDS: predniSONE TAB* 1 MG PO SCH ×2 (09:16→21:14)
--- NOTE | 2018-04-11 09:49 | PN ---
Progress Note - Progress Note Date of Service: 04/11/18 SOAP: Subjective: [] Patient seen and examined at bedside. He is feeling nauseous and having pain of his left knee. Denies chest pain, SOB, dizziness. Objective: []General: Well appearing, NAD LLE: Left knee dressing CDI, cryo unit in use. DF/PF intact, DP2+, sensation intact distally BL calves are supple and nontender without erythema, edema or palpable cords Assessment: [] POD 1 sp left total knee replacement 04/[address] Gutierrez Plan: []WBAT PT/OT Lovenox bridge to coumadin, coumadin 8 mg today Prochlorperazine and ondansetron available for nausea Vital Signs Temp 98.6 F 04/11/18 07:17 Pulse 73 04/11/18 07:17 Resp 20 04/11/18 09:32 BP 176/87 04/11/18 07:17 Pulse Ox 99 04/11/18 07:17 Intake & Output 04/10/18 04/11/18 04/11/18 18:59 06:59 18:59 Intake Total 1900 2390 240 Output Total 1600 1550 Balance 300 840 240 Weight 150 lb Intake: IV Fluids 1900 1040 ABX - CEFAZOLIN 60 LR 1800 980 NS 100ML, Cefazolin 2G 100 Oral 1350 240 Output: Garrett 1600 1550 Laboratory Last Values Hgb 13.7 g/dl (14.0-18.0) L 04/11/18 05:28 Hct 43 % (42-52) 04/11/18 05:28 Plt Count 135 10^3/ul (150-450) L 04/11/18 05:28 MPV 9.9 um3 (7.4-10.4) 04/11/18 05:28 INR (Anticoag Therapy) 1.11 (0.77-1.02) H 04/11/18 05:28 Sodium 135 mmol/L (135-145) 04/11/18 05:28 Potassium 4.3 mmol/L (3.5-5.0) 04/11/18 05:28 Chloride 100 mmol/L (101-111) L 04/11/18 05:28 Carbon Dioxide 30 mmol/L (22-32) 04/11/18 05:28 Anion Gap 5 mmol/L (2-11) 04/11/18 05:28 BUN 12 mg/dL (6-24) 04/11/18 05:28 Creatinine 0.95 mg/dL (0.67-1.17) 04/11/18 05:28 Est GFR ( Amer) 104.7 (>60) 04/11/18 05:28 Est GFR (Non-Af Amer) 86.5 (>60) 04/11/18 05:28 BUN/Creatinine Ratio 12.6 (8-20) 04/11/18 05:28 Glucose 163 mg/dL (70-100) H 04/11/18 05:28 POC Glucose (mg/dL) 167 mg/dL (70-100) H 04/11/18 07:08 Calcium 8.3 mg/dL (8.6-10.3) L 04/11/18 05:28
[2018-04-11] MEDS ORDERED: Enoxaparin(*) 30 MG/0.3 ML SYR SUBCUT SCH (12:00)
--- NOTE | 2018-04-11 15:59 | PN ---
Hospitalist Progress Note Date of Service: 04/10/18 Addendum to 04/[address] Tevin Herrera and not Dr Marion
--- NOTE | 2018-04-11 16:11 | OP ---
DATE OF OPERATION: 04/10/18 - ROOM #343 DATE OF : 73 SURGEON: Viviana Gutierrez MD DIRECTOR RELIGIOUS EDUCATION: DEANN Anne. Ms. Bautista did help throughout the procedure with preparation of the leg, wound retraction, manipulation of the knee, and wound closure. ANESTHESIOLOGIST: Dr. Hanley. ANESTHESIA: General. 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 OPERATIVE PROCEDURE: Left total knee arthroplasty. INDICATIONS: Mr. Blake is a 42-year-old gentleman with years of left knee pain. He had a traumatic injury many years ago and developed posttraumatic arthritis with valgus deformity. Radiographs showed [id number] arthritis. Due to continued pain and decreased quality of life, he elected to undergo left total knee arthroplasty. He had failed conservative treatment with anti- inflammatories, physical therapy, and intra-articular injections. Informed consent was obtained from the patient. He understood the risks of surgery included, but were not limited to, bleeding, infection, damage to nearby structures, continued pain, need for further surgery, intraoperative fracture, nerve palsy, hardware failure or loosening, knee stiffness, loss of motion, stroke, heart attack, blood clot, and . He wished to proceed. TOURNIQUET TIME: 67 minutes. COMPLICATIONS: None. SPECIMEN: Bone and cartilage from the left knee joint sent to Pathology. ESTIMATED BLOOD LOSS: 200 cc. INTRAOPERATIVE FINDINGS: Intraoperatively, the patient was noted to have valgus deformity of 12 degrees and flexion contracture of 15 degrees. He had full- thickness loss of cartilage in all 3 compartments. HARDWARE USED: This is cemented [employer] total knee arthroplasty hardware. Two packages of Simplex bone cement. For the femur, a left size 6 Narrow Oxinium posterior stabilized Legion femoral component. For the tibia, a left size 5 Nava II tibial baseplate. For the insert, a 9-mm size 5-6 high- flexion posterior stabilized articular insert. For the patella, a 32-mm 3-peg all poly patella with 7.5 thickness. DESCRIPTION OF PROCEDURE: Mr. Blake was identified in the preanesthesia unit. His left lower extremity was marked as the correct side. Informed consent was signed and placed in the chart. The patient was taken to the operating room and placed under general anesthesia. A Garrett catheter was placed. Traction was placed on the left side. Left lower extremity was prepped and draped in the usual sterile fashion. Preop time-out was made to correctly identify the patient's side and site. Appropriate perioperative antibiotics were given within 1 hour of incision. Tourniquet was inflated and total tourniquet time for this procedure was 67 minutes. A midline incision was made with a 10 blade and carried down to the extensor mechanism. A new 10 blade was used to make a standard medial parapatellar arthrotomy. Patella was subluxed laterally. Electrocautery was used to subperiosteally elevate the soft tissue along the superomedial tibia to the mid sagittal plane. The knee was flexed up. The anterior horn of the lateral meniscus and ACL were sharply released. It was noted that there was complete loss of cartilage along the distal femur with abnormal anatomy and extensive osteophyte formation. Drill was used to enter the distal femur. Intramedullary distal femoral cutting guide was pinned on the distal femur. Oscillating saw was used to make the distal femoral cut. Next, the external rotation guide was pinned on the distal femur. Distal femur was sized to a size 6. Size 6 multi-cutting jig was pinned on the distal femur. Oscillating saw was used to make the appropriate chamfer cuts. The PCL was completely released and the tibia was subluxed anteriorly. Extramedullary tibial cutting guide was pinned on the proximal tibia. Oscillating saw was used to make the proximal tibial cut perpendicular to the mechanical axis of the tibia. The bone was removed. The knee was brought out into full extension. There was good medial and lateral ligamentous balancing with some slight lateral tightness. A 15-blade was used to conservatively pie- crust the lateral ligaments and medial and lateral ligamentous balancing was much improved. Spacer block had good fit with the knee in full extension. Flexion and extension gaps were well balanced. The knee was flexed up. Lamina service counter cashier was placed both medially and laterally. Any remaining meniscus was carefully removed using electrocautery. Curved osteotome was used to remove posterior osteophytes. Tibia tray and drop eber were placed and once again confirmed satisfactory tibial cut. A size 6 Narrow left femoral trial was impacted onto the distal femur and had good fit. The box for the posterior stabilized implant was prepared using a reamer and box cut osteotome. Size 5 tibial tray with a 9-mm insert trial was placed and the knee was taken through range of motion. The knee had full extension to 120 degrees of flexion with satisfactory patellofemoral tracking. The patella was everted. 7 mm of patellar bone and cartilage was carefully removed using an oscillating saw. The patella was sized to a size 32. Three peg holes were drilled through the size 32 guide. 32 trial patella with 7.5 thickness was placed and the knee was taken through a range of motion. There was satisfactory patellofemoral tracking. All trials were carefully removed. The tibia was subluxed anteriorly and sized to a size 5. Proximal tibia was prepared using a size 5 keel punch. All bony cut surfaces were copiously irrigated with sterile saline and dried. Final implants were cemented into place starting with the tibia, followed by the femur, and lastly the patella. A 9-mm insert trial was placed and the knee was brought out into full extension. Tourniquet was turned down at 67 minutes. Electrocautery was used to obtain meticulous hemostasis. The knee was copiously irrigated with sterile saline. Once the cement had fully cured, the insert trial was removed. Cement was removed from around the capsule and hardware. Final insert chosen was a 9-mm posterior stabilized Nava II high-flexion articular insert size 5-6. This was locked into position on the tibial tray without difficulty. Stability of the insert was checked and rechecked and noted to be stable. The knee was once again copiously irrigated with sterile saline. The extensor mechanism was closed using interrupted #1 Vicryls. The rest of the incision was closed in a layered fashion using 0 and 2-0 Vicryls. Skin was closed using running 3-0 nylon. Sterile Xeroform, 4x4s, and Webril were used to cover the incision. Azam wrap and cold pack were placed over this. The patient's anesthesia was reversed without difficulty. He was taken to the PACU in stable condition. Intended weightbearing will be weightbearing as tolerated. Intended DVT prophylaxis will be Coumadin with a Lovenox bridge. [id number]/[facility] #: [id number] JOSE C
--- NOTE | 2018-04-11 16:52 | CONSULT ---
Subjective Date of Service: 04/11/18 Interval History: Trouble sleeping but pain better controlled now and able to sleep No CP/SOB, N/V, LH Review of Systems - Measurements Intake and Output: Intake and Output Last 24 Hours 04/09/18 04/10/18 04/11/18 04/12/18 11:59 11:59 11:59 11:59 Intake Total 4530 2070 Output Total 3150 750 Balance 1380 1320 Weight 68.039 kg Intake: IV Fluids 2940 1090 ABX - CEFAZOLIN 60 110 LR 2780 980 NS 100ML, Cefazolin 2G 100 Oral 1590 980 Output: Urine 750 Garrett 3150 Objective Active Medications: Acetaminophen (Tylenol Tab*) 975 mg PO Q8H [facility] Last Admin: 04/11/18 14:06 Dose: Not Given Atenolol (Tenormin Tab*) 25 mg PO BID [facility] Last Admin: 04/11/18 09:16 Dose: 25 mg Atorvastatin Calcium (Lipitor*) 20 mg PO QAM [facility] Last Admin: 04/11/18 09:16 Dose: 20 mg Bisacodyl (Dulcolax Supp*) 10 mg [place] DAILY PRN PRN Reason: constipation Cyclobenzaprine HCl (Flexeril Tab*) 10 mg PO TID PRN PRN Reason: SPASMS Last Admin: 04/10/18 20:04 Dose: 10 mg Dextrose (D50w Syringe 50 Ml*) 12.5 gm IV PUSH .FOR FS < 60 - SS PRN PRN Reason: FS < 60 Dicyclomine HCl (Bentyl Cap*) 20 mg PO TID [facility] Last Admin: 04/11/18 14:26 Dose: 20 mg Diphenhydramine HCl (Benadryl Iv*) 12.5 mg IV Q6H PRN PRN Reason: PRURITIS Last Admin: 04/11/18 12:16 Dose: 12.5 mg Docusate Sodium (Colace Cap*) 100 mg PO BID [facility] Last Admin: 04/11/18 09:15 Dose: 100 mg Enoxaparin Sodium (Lovenox(*)) 30 mg SUBCUT Q24H [facility] Last Admin: 04/11/18 12:18 Dose: 30 mg Gabapentin (Neurontin Cap(*)) 300 mg PO TID [facility] Last Admin: 04/11/18 14:22 Dose: Not Given Lactated Ringer's (Lactated Ringers 1000 Ml Bag*) 1,000 mls @ 100 mls/hr IV PER RATE [facility] Last Admin: 04/11/18 02:17 Dose: 100 mls/hr Insulin Glargine (Lantus(*)) [facility] Last Admin: 04/11/18 09:12 Dose: 7 unit Insulin Human Lispro (Humalog*) 0 units SUBCUT [facility]; Protocol Lactulose (Lactulose*) 30 ml PO Q6H PRN PRN Reason: constipation Lisinopril (Prinivil Tab*) [facility] Last Admin: 04/11/18 09:16 Dose: 5 mg Magnesium Hydroxide (Milk Of Magnesia Liq*) 30 ml PO BID [facility] Last Admin: 04/11/18 09:15 Dose: 30 ml Magnesium Hydroxide (Milk Of Magnesia Liq*) 30 ml PO Q6H PRN PRN Reason: constipation Meperidine HCl (Demerol Carpuject*) 25 mg IV ONCE PRN PRN Reason: PAIN/INFLAMMATION Last Admin: 04/10/18 14:55 Dose: 25 mg Morphine Sulfate (Morphine Vial*) 2 mg IV Q2H PRN PRN Reason: PAIN - SEVERE Last Admin: 04/11/18 09:31 Dose: 2 mg Pto: Etanercept [ Enbrel Sureclick] 1 Dose 1 dose SUBCUT .PLEASE CLARIFY [facility] Omeprazole (Prilosec Cap*) 20 mg PO DAILY@0730 [facility] Last Admin: 04/11/18 07:06 Dose: 20 mg Ondansetron HCl (Zofran Inj*) 4 mg IV Q6H PRN PRN Reason: nausea Last Admin: 04/11/18 09:38 Dose: 4 mg Ondansetron HCl (Zofran Tab*) 4 mg PO Q6H PRN PRN Reason: NAUSEA Last Admin: 04/10/18 17:36 Dose: 4 mg Oxycodone HCl (Roxycodone Tab*) 10 mg PO Q4H PRN PRN Reason: SEVERE PAIN Last Admin: 04/11/18 12:20 Dose: 10 mg Oxycodone/Acetaminophen (Percocet 5/325 Tab*) 1 tab PO Q4H PRN PRN Reason: PAIN Oxycodone/Acetaminophen (Percocet 5/325 Tab*) 2 tab PO Q4H PRN PRN Reason: PAIN Last Admin: 04/11/18 14:25 Dose: 2 tab Polyethylene Glycol/Electrolytes (Miralax*) 17 gm PO DAILY PRN PRN Reason: Constipation Prednisone (Deltasone Tab*) 3 mg PO BID [facility] Last Admin: 04/11/18 09:16 Dose: 3 mg Prochlorperazine Edisylate (Compazine Inj*) 10 mg IV Q6H PRN PRN Reason: NAUSEA Last Admin: 04/10/18 21:07 Dose: 10 mg Tramadol HCl (Ultram*) 50 mg PO Q6H PRN PRN Reason: PAIN Last Admin: 04/11/18 02:42 Dose: 50 mg Warfarin Sodium (Coumadin Tab(*)) 8 mg PO ONCE@1700 [facility]; Protocol Stop: 04/11/18 17:01 Vital Signs - 8 hr 04/11/18 04/11/18 04/11/18 09:15 09:31 09:32 Temperature Pulse Rate Respiratory 18 20 20 Rate Blood Pressure (mmHg) O2 Sat by Pulse Oximetry 04/11/18 04/11/18 04/11/18 11:04 11:48 12:16 Temperature 98.4 F Pulse Rate 83 Respiratory 16 16 16 Rate Blood Pressure 134/70 (mmHg) O2 Sat by Pulse 95 Oximetry 04/11/18 04/11/18 04/11/18 12:19 12:20 14:22 Temperature Pulse Rate Respiratory 18 18 16 Rate Blood Pressure (mmHg) O2 Sat by Pulse Oximetry 04/11/18 04/11/18 04/11/18 14:25 14:26 15:23 Temperature 99.8 F Pulse Rate 95 Respiratory 18 18 18 Rate Blood Pressure 151/91 (mmHg) O2 Sat by Pulse 96 Oximetry 04/11/18 04/11/18 04/11/18 16:00 16:17 16:18 Temperature Pulse Rate Respiratory 18 18 Rate Blood Pressure (mmHg) O2 Sat by Pulse 96 Oximetry Oxygen Devices in Use Now: None Appearance: NAD Eyes: No Scleral Icterus, PERRLA Ears/Nose/Mouth/Throat: NL Teeth, Lips, Gums, Clear Oropharnyx Neck: NL Appearance and Movements; NL JVP, Trachea Midline Respiratory: Symmetrical Chest Expansion and Respiratory Effort, Clear to Auscultation Cardiovascular: NL Sounds; No Murmurs; No JVD, RRR Abdominal: NL Sounds; No Tenderness; No Distention Lymphatic: No Cervical Adenopathy Extremities: - - left knee wrapped Skin: No Rash or Ulcers Neurological: Alert and Oriented x 3 Result Diagrams: 04/11/18 05:28 04/11/18 05:28 Additional Lab and Data: Pre-op labs from 03/26/18 as follows: NA 141 K 4.7 Cl 102 CO2 33 BUN 19 Cr 0.95 Glu 102 WBC 9.2 Hgb 16 Hct 48 Plt 171 INR 0.92 EKG with normal sinus rhythm Assessment/Plan - Billing 42 M h/o DM2, HTN, Rheumatoid Arthritis, IBS and depression s/p left TKA with Dr Gutierrez on 04/10. Plan By Medical Problem: s/p Left total knee arthroplasty - POD 1 - Plan per ortho - Continue pain management regiment per primary team DM2 - restart metformin 04/11 - lantus - bolus lispro increased to medium dose HTN -atenolol and lisinopril -consider increased lisinopril if BP remains elevated after pain better controlled RA - Continue home prednisone and enbrel IBS - Continue home dicyclomine VTE PPX: Lovenox bridge to coumadin Will continue to follow
[2018-04-11] MEDS ORDERED: Warfarin TAB(*) 4 MG PO ONE (17:00)
[2018-04-11] MEDS: metFORMIN* 1,000 MG TAB PO SCH (17:31)
[2018-04-12] MEDS: Cyclobenzaprine TAB* 10 MG PO PRN (00:01)
[2018-04-12] MEDS: Ondansetron TAB* 4 MG PO PRN ×2 (00:04→10:29)
[2018-04-12] MEDS: oxyCODONE/Acetamin 5/325 MG* TAB PO PRN ×5 (03:43→23:50)
[2018-04-12] MEDS: traMADol TAB* 50 MG PO PRN (05:19)
[2018-04-12] MEDS: Acetaminophen TAB* 325 MG PO SCH ×3 (05:54→21:23)
[2018-04-12 06:01] LABS: Hematocrit 44 % (42-52); Hemoglobin 14.5 g/dl (14.0-18.0); Mean Platelet Volume 10.1 um3 (7.4-10.4); Platelet Count 159 10^3/ul (150-450)
[2018-04-12 06:10] LABS: INR 2.97 (0.77-1.02)
[2018-04-12] MEDS: Omeprazole CAP* 20 MG PO SCH (07:06)
[2018-04-12] MEDS: Insulin LISPRO* 1 UNITS UNIT SUBCUT SCH ×4 (08:23→21:21)
[2018-04-12] MEDS: Insulin GLARGINE(*) 1 UNITS UNIT SUBCUT SCH (08:23)
[2018-04-12] MEDS: Magnesium Hydroxide LIQ* 30 ML UDC PO SCH ×2 (08:24→21:18)
[2018-04-12] MEDS: Atorvastatin* 20 MG TAB PO SCH (08:25)
[2018-04-12] MEDS: Lisinopril TAB* 5 MG PO SCH (08:25)
[2018-04-12] MEDS: Dicyclomine CAP* 10 MG PO SCH ×3 (08:25→21:19)
[2018-04-12] MEDS: Docusate CAP* 100 MG PO SCH ×2 (08:25→21:19)
[2018-04-12] MEDS: Atenolol TAB* 25 MG PO SCH ×2 (08:26→21:19)
[2018-04-12] MEDS: predniSONE TAB* 1 MG PO SCH ×2 (08:26→21:19)
[2018-04-12] MEDS: metFORMIN* 1,000 MG TAB PO SCH ×2 (08:26→17:20)
[2018-04-12] MEDS: Gabapentin CAP(*) 300 MG PO SCH ×3 (08:26→21:19)
--- NOTE | 2018-04-12 09:38 | PN ---
Progress Note - Progress Note Date of Service: 04/12/18 SOAP: Subjective: []Patient seen and examined at bedside. He continues to have pain of his left knee he rates as 8/10 though today states pain to be tolerable and somewhat improved from yesterday. Denies any chest pain, shortness of breath, dizziness. He is nauseous intermittently. At home he has help for past of the day, but not 24 hour assistance and does not feel safe to return home to care for himself at this time. Objective: [] General: Well appearing, NAD LLE: Left knee dressing changed, incision CDI, cryo unit in use. DF/PF intact, DP2+, sensation intact distally, thigh is soft. BL calves are supple and nontender without erythema, edema or palpable cords Assessment: [] POD 2 sp left total knee replacement 04/[address] Gutierrez Plan: []WBAT PT/OT Continue lovenox today, 0 mg coumadin today Patient has not yet participate with PT today, I will again discuss his readiness to DC to home after he has had PT Vital Signs Temp 98.5 F 04/12/18 07:25 Pulse 84 04/12/18 07:25 Resp 18 04/12/18 08:43 BP 122/78 04/12/18 07:25 Pulse Ox 94 04/12/18 08:00 Intake & Output 04/11/18 04/12/18 04/12/18 18:59 06:59 18:59 Intake Total 2310 1900 210 Output Total 1375 1600 500 Balance 935 300 -290 Intake: IV Fluids 1090 ABX - CEFAZOLIN 110 LR 980 Oral 1220 1900 210 Output: Urine 1375 1600 500 Other: # Bowel Movements 0 Laboratory Last Values Hgb 14.5 g/dl (14.0-18.0) 04/12/18 05:35 Hct 44 % (42-52) 04/12/18 05:35 Plt Count 159 10^3/ul (150-450) 04/12/18 05:35 MPV 10.1 um3 (7.4-10.4) 04/12/18 05:35 INR (Anticoag Therapy) 2.97 (0.77-1.02) H 04/12/18 05:35 Sodium 135 mmol/L (135-145) 04/11/18 05:28 Potassium 4.3 mmol/L (3.5-5.0) 04/11/18 05:28 Chloride 100 mmol/L (101-111) L 04/11/18 05:28 Carbon Dioxide 30 mmol/L (22-32) 04/11/18 05:28 Anion Gap 5 mmol/L (2-11) 04/11/18 05:28 BUN 12 mg/dL (6-24) 04/11/18 05:28 Creatinine 0.95 mg/dL (0.67-1.17) 04/11/18 05:28 Est GFR ( Amer) 104.7 (>60) 04/11/18 05:28 Est GFR (Non-Af Amer) 86.5 (>60) 04/11/18 05:28 BUN/Creatinine Ratio 12.6 (8-20) 04/11/18 05:28 Glucose 163 mg/dL (70-100) H 04/11/18 05:28 POC Glucose (mg/dL) 155 mg/dL (70-100) H 04/12/18 07:06 Calcium 8.3 mg/dL (8.6-10.3) L 04/11/18 05:28
[2018-04-12] MEDS: oxyCODONE TAB* 5 MG TAB PO PRN ×2 (10:33→21:20)
[2018-04-12] MEDS ORDERED: Al Hydrox/Mg Hydrox/Simet LIQ* 30 ML UDC PO PRN (11:39)
--- NOTE | 2018-04-12 11:40 | PN ---
Subjective Date of Service: 04/12/18 Interval History: Pain well controlled Has heart burn symptoms that he usually gets at home - burning in throat and belly, intermittent and worse with lying flat No CP, SOB, N/V, LH Objective Active Medications: Acetaminophen (Tylenol Tab*) 975 mg PO Q8H [facility] Last Admin: 04/12/18 05:54 Dose: Not Given Atenolol (Tenormin Tab*) 25 mg PO BID [facility] Last Admin: 04/12/18 08:26 Dose: 25 mg Atorvastatin Calcium (Lipitor*) 20 mg PO QAM [facility] Last Admin: 04/12/18 08:25 Dose: 20 mg Bisacodyl (Dulcolax Supp*) 10 mg [place] DAILY PRN PRN Reason: constipation Cyclobenzaprine HCl (Flexeril Tab*) 10 mg PO TID PRN PRN Reason: SPASMS Last Admin: 04/12/18 00:01 Dose: 10 mg Dextrose (D50w Syringe 50 Ml*) 12.5 gm IV PUSH .FOR FS < 60 - SS PRN PRN Reason: FS < 60 Dicyclomine HCl (Bentyl Cap*) 20 mg PO TID [facility] Last Admin: 04/12/18 08:25 Dose: 20 mg Diphenhydramine HCl (Benadryl Iv*) 12.5 mg IV Q6H PRN PRN Reason: PRURITIS Last Admin: 04/11/18 12:16 Dose: 12.5 mg Docusate Sodium (Colace Cap*) 100 mg PO BID [facility] Last Admin: 04/12/18 08:25 Dose: 100 mg Enoxaparin Sodium (Lovenox(*)) 30 mg SUBCUT Q24H [facility] Gabapentin (Neurontin Cap(*)) 300 mg PO TID [facility] Last Admin: 04/12/18 08:26 Dose: 300 mg Lactated Ringer's (Lactated Ringers 1000 Ml Bag*) 1,000 mls @ 100 mls/hr IV PER RATE [facility] Last Admin: 04/11/18 02:17 Dose: 100 mls/hr Insulin Glargine (Lantus(*)) 7 units SUBCUT [facility] Last Admin: 04/12/18 08:23 Dose: 7 unit Insulin Human Lispro (Humalog*) 0 units SUBCUT [facility]; Protocol Last Admin: 04/12/18 08:23 Dose: 2 unit Lactulose (Lactulose*) 30 ml PO Q6H PRN PRN Reason: constipation Lisinopril (Prinivil Tab*) 5 mg PO QAM [facility] Last Admin: 04/12/18 08:25 Dose: 5 mg Magnesium Hydroxide (Milk Of Magnesia Liq*) 30 ml PO BID [facility] Last Admin: 04/12/18 08:24 Dose: 30 ml Magnesium Hydroxide (Milk Of Magnesia Liq*) 30 ml PO Q6H PRN PRN Reason: constipation Meperidine HCl (Demerol Carpuject*) 25 mg IV ONCE PRN PRN Reason: PAIN/INFLAMMATION Last Admin: 04/10/18 14:55 Dose: 25 mg Metformin HCl (Glucophage*) 1,000 mg PO 0800,1700 [facility] Last Admin: 04/12/18 08:26 Dose: 1,000 mg Morphine Sulfate (Morphine Vial*) 2 mg IV Q2H PRN PRN Reason: PAIN - SEVERE Last Admin: 04/11/18 09:31 Dose: 2 mg Pto: Etanercept [ Enbrel Sureclick] 1 Dose 1 dose SUBCUT .PLEASE CLARIFY [facility] Omeprazole (Prilosec Cap*) 20 mg PO DAILY@0730 [facility] Last Admin: 04/12/18 07:06 Dose: 20 mg Ondansetron HCl (Zofran Inj*) 4 mg IV Q6H PRN PRN Reason: nausea Last Admin: 04/11/18 09:38 Dose: 4 mg Ondansetron HCl (Zofran Tab*) 4 mg PO Q6H PRN PRN Reason: NAUSEA Last Admin: 04/12/18 10:29 Dose: 4 mg Oxycodone HCl (Roxycodone Tab*) 10 mg PO Q4H PRN PRN Reason: SEVERE PAIN Last Admin: 04/12/18 10:33 Dose: 10 mg Oxycodone/Acetaminophen (Percocet 5/325 Tab*) 1 tab PO Q4H PRN PRN Reason: PAIN Oxycodone/Acetaminophen (Percocet 5/325 Tab*) 2 tab PO Q4H PRN PRN Reason: PAIN Last Admin: 04/12/18 08:43 Dose: 2 tab Polyethylene Glycol/Electrolytes (Miralax*) 17 gm PO DAILY PRN PRN Reason: Constipation Prednisone (Deltasone Tab*) 3 mg PO BID [facility] Last Admin: 04/12/18 08:26 Dose: 3 mg Prochlorperazine Edisylate (Compazine Inj*) 10 mg IV Q6H PRN PRN Reason: NAUSEA Last Admin: 04/10/18 21:07 Dose: 10 mg Tramadol HCl (Ultram*) 50 mg PO Q6H PRN PRN Reason: PAIN Last Admin: 04/12/18 05:19 Dose: 50 mg Vital Signs - 8 hr 04/12/18 04/12/18 04/12/18 03:39 03:43 05:19 Temperature 99.1 F Pulse Rate 87 Respiratory 18 16 16 Rate Blood Pressure 145/78 (mmHg) O2 Sat by Pulse 94 Oximetry 04/12/18 04/12/18 04/12/18 05:53 07:06 07:25 Temperature 98.5 F Pulse Rate 84 Respiratory 12 18 17 Rate Blood Pressure 122/78 (mmHg) O2 Sat by Pulse 94 Oximetry 04/12/18 04/12/18 04/12/18 08:00 08:25 08:26 Temperature Pulse Rate Respiratory 18 18 18 Rate Blood Pressure (mmHg) O2 Sat by Pulse 94 Oximetry 04/12/18 04/12/18 04/12/18 08:43 10:30 10:33 Temperature Pulse Rate Respiratory 18 18 18 Rate Blood Pressure (mmHg) O2 Sat by Pulse Oximetry 04/12/18 11:12 Temperature 98.5 F Pulse Rate 80 Respiratory 17 Rate Blood Pressure 99/59 (mmHg) O2 Sat by Pulse 93 Oximetry Oxygen Devices in Use Now: None Appearance: NAD Eyes: No Scleral Icterus, PERRLA Ears/Nose/Mouth/Throat: NL Teeth, Lips, Gums, Clear Oropharnyx Neck: NL Appearance and Movements; NL JVP, Trachea Midline Respiratory: Symmetrical Chest Expansion and Respiratory Effort, Clear to Auscultation Cardiovascular: NL Sounds; No Murmurs; No JVD, RRR Abdominal: NL Sounds; No Tenderness; No Distention, No Hepatosplenomegaly Lymphatic: No Cervical Adenopathy, No Axillary Adenopathy Extremities: - - left knee wrapped Neurological: Alert and Oriented x 3 Result Diagrams: 04/12/18 05:35 04/11/18 05:28 Additional Lab and Data: Pre-op labs from 03/26/18 as follows: NA 141 K 4.7 Cl 102 CO2 33 BUN 19 Cr 0.95 Glu 102 WBC 9.2 Hgb 16 Hct 48 Plt 171 INR 0.92 EKG with normal sinus rhythm Assess/Plan/Problems-Billing 42 M h/o DM2, HTN, Rheumatoid Arthritis, IBS and depression s/p left TKA with Dr Gutierrez on 04/10. Plan By Medical Problem: s/p Left total knee arthroplasty - POD 2 - Plan per ortho - Continue pain management regiment per primary team DM2 - good control - restarted metformin 04/11 - lantus - lispro imedium dose HTN - good control -atenolol and lisinopril GERD -omeprazole -add maalox PRN RA - Continue home prednisone and enbrel IBS - Continue home dicyclomine VTE PPX: Lovenox bridge to coumadin Will sign off please call with additional questions or concerns [phone]
[2018-04-12] MEDS: Enoxaparin(*) 30 MG/0.3 ML SYR SUBCUT SCH (11:45)
[2018-04-13] MEDS: oxyCODONE TAB* 5 MG TAB PO PRN ×5 (02:58→21:31)
[2018-04-13] MEDS: oxyCODONE/Acetamin 5/325 MG* TAB PO PRN ×4 (04:31→18:20)
[2018-04-13 06:39] LABS: Hematocrit 39 % (42-52); Hemoglobin 13.1 g/dl (14.0-18.0); Mean Platelet Volume 10.5 um3 (7.4-10.4); Platelet Count 148 10^3/ul (150-450)
[2018-04-13 06:44] LABS: INR 3.62 (0.77-1.02)
--- NOTE | 2018-04-13 06:58 | PN ---
Progress Note - Progress Note Date of Service: 04/13/18 SOAP: Subjective: Pt. reports knee feels swollen and painful. Objective: Vital Signs: Temp Pulse Resp BP Pulse Ox 98.5 F 92 16 139/82 96 04/13/18 03:21 04/13/18 03:21 04/13/18 04:31 04/13/18 03:21 04/13/18 03:21 Laboratory Results - last 24 hr 04/12/18 04/12/18 04/12/18 07:06 11:35 17:18 Hgb Hct Plt Count MPV INR (Anticoag Therapy) POC Glucose (mg/dL) 155 H 145 H 152 H 04/12/18 04/13/18 04/13/18 21:10 06:05 06:05 Hgb 13.1 L Hct 39 L Plt Count 148 L MPV 10.5 H INR (Anticoag Therapy) 3.62 H POC Glucose (mg/dL) 133 H LLE - dressing changed, inc has small rash with warmth and erythema. inc healing well - no drainage. calf soft and compressible. distally nvi. Assessment: 42 yo M pod 3 s/p LTKA Plan: new erythema at incision - unclear if cellulitis vs rash vs hematoma - will order ancef IV now and keep 24 hours for further observation will recheck incision in AM and likely d/c to home with vns 04/14 wbat pt/ot hold coumadin, cont lovenox
[2018-04-13] MEDS: ceFAZolin 1 GM in Dextrose (*) 1 GM/50 ML BAG IVPB SCH ×3 (07:09→22:31)
[2018-04-13] MEDS: Acetaminophen TAB* 325 MG PO SCH ×3 (07:40→21:38)
[2018-04-13] MEDS: Atorvastatin* 20 MG TAB PO SCH (07:54)
[2018-04-13] MEDS: Lisinopril TAB* 5 MG PO SCH (07:55)
[2018-04-13] MEDS: Omeprazole CAP* 20 MG PO SCH (07:55)
[2018-04-13] MEDS: Gabapentin CAP(*) 300 MG PO SCH ×3 (07:55→21:31)
[2018-04-13] MEDS: Atenolol TAB* 25 MG PO SCH ×2 (07:55→21:31)
[2018-04-13] MEDS: Dicyclomine CAP* 10 MG PO SCH ×3 (07:55→21:30)
[2018-04-13] MEDS: metFORMIN* 1,000 MG TAB PO SCH ×2 (07:55→16:24)
[2018-04-13] MEDS: Docusate CAP* 100 MG PO SCH ×2 (07:55→21:34)
[2018-04-13] MEDS: Magnesium Hydroxide LIQ* 30 ML UDC PO SCH ×2 (07:56→21:34)
[2018-04-13] MEDS ORDERED: predniSONE TAB* 5 MG PO SCH (09:00)
[2018-04-13] MEDS: Insulin LISPRO* 1 UNITS UNIT SUBCUT SCH ×4 (09:19→21:32)
[2018-04-13] MEDS: Insulin GLARGINE(*) 1 UNITS UNIT SUBCUT SCH (09:20)
[2018-04-13] MEDS: Ondansetron TAB* 4 MG PO PRN (09:24)
[2018-04-13] MEDS: Enoxaparin(*) 30 MG/0.3 ML SYR SUBCUT SCH (11:30)
[2018-04-13] MEDS: predniSONE TAB* 1 MG PO SCH (21:30)
[2018-04-14] MEDS: oxyCODONE/Acetamin 5/325 MG* TAB PO PRN ×3 (00:47→11:52)
[2018-04-14] MEDS: oxyCODONE TAB* 5 MG TAB PO PRN ×2 (04:03→13:34)
[2018-04-14 05:37] LABS: Hematocrit 35 % (42-52); Hemoglobin 11.5 g/dl (14.0-18.0); Mean Platelet Volume 9.6 um3 (7.4-10.4); Platelet Count 201 10^3/ul (150-450)
[2018-04-14 05:48] LABS: INR 2.76 (0.77-1.02)
[2018-04-14] MEDS: Acetaminophen TAB* 325 MG PO SCH ×2 (06:28→13:31)
[2018-04-14] MEDS: ceFAZolin 1 GM in Dextrose (*) 1 GM/50 ML BAG IVPB SCH ×2 (06:31→13:51)
[2018-04-14] MEDS: traMADol TAB* 50 MG PO PRN (06:36)
[2018-04-14] MEDS: Omeprazole CAP* 20 MG PO SCH (07:29)
[2018-04-14] MEDS: Insulin LISPRO* 1 UNITS UNIT SUBCUT SCH ×2 (07:35→12:01)
[2018-04-14] MEDS: metFORMIN* 1,000 MG TAB PO SCH (07:35)
[2018-04-14] MEDS: Atenolol TAB* 25 MG PO SCH (09:12)
[2018-04-14] MEDS: predniSONE TAB* 1 MG PO SCH (09:13)
[2018-04-14] MEDS: Lisinopril TAB* 5 MG PO SCH (09:13)
[2018-04-14] MEDS: Atorvastatin* 20 MG TAB PO SCH (09:13)
[2018-04-14] MEDS: Gabapentin CAP(*) 300 MG PO SCH ×2 (09:13→13:43)
[2018-04-14] MEDS: Dicyclomine CAP* 10 MG PO SCH ×2 (09:14→13:43)
[2018-04-14] MEDS: Docusate CAP* 100 MG PO SCH (09:14)
[2018-04-14] MEDS: Insulin GLARGINE(*) 1 UNITS UNIT SUBCUT SCH (09:15)
[2018-04-14] MEDS: Magnesium Hydroxide LIQ* 30 ML UDC PO SCH (09:15)
--- NOTE | 2018-04-14 09:41 | PN ---
Progress Note - Progress Note Date of Service: 04/14/18 SOAP: Subjective: Pt. is alert, c/o stiffness in the knee today. Objective: Vital Signs: Temp Pulse Resp BP Pulse Ox 98.1 F 77 20 139/84 96 04/14/18 07:59 04/14/18 07:43 04/14/18 09:15 04/14/18 07:43 04/14/18 08:00 Laboratory Results - last 24 hr 04/13/18 04/13/18 04/13/18 07:48 11:34 16:59 Hgb Hct Plt Count MPV INR (Anticoag Therapy) POC Glucose (mg/dL) 162 H 151 H 151 H 04/13/18 04/14/18 04/14/18 21:20 05:22 05:22 Hgb 11.5 L Hct 35 L Plt Count 201 MPV 9.6 INR (Anticoag Therapy) 2.76 H POC Glucose (mg/dL) 142 H 04/14/18 07:29 Hgb Hct Plt Count MPV INR (Anticoag Therapy) POC Glucose (mg/dL) 172 H LLE - dressing changed, hematoma with bruising anterior knee, erythema largely resolved, calf soft, distally nvi. Assessment: 42 yo M pod 4 s/p LTKA [] Plan: wbat lle home today with vns po keflex x 7 days coumadin x 4 weeks
[2018-04-14 11:16] VITALS: BP 125/86
--- NOTE | 2018-04-14 11:23 | DS ---
AMENDED REPORT NOW INCLUDES COSIGNER DESIGNATION - ESIGNED BEFORE ADJUSTMENT DISCHARGE SUMMARY: DATE OF ADMISSION: 04/10/18 DATE OF DISCHARGE: 04/14/18 PROVIDER: Dr. Viviana Gutierrez.* (DICTATED BY DEANN HUDSON) ADMITTING DIAGNOSIS: Severe end-stage osteoarthritis of the left knee. DISCHARGE DIAGNOSIS: Severe end-stage osteoarthritis of the left knee, status post left total knee arthroplasty. SECONDARY DIAGNOSES: 1. Diabetes. 2. Hypertension. 3. Rheumatoid arthritis. 4. High cholesterol. 5. Depression. HISTORY OF PRESENT ILLNESS: Mr. Blake is a 42-year-old gentleman, who had end- stage osteoarthritis of the left knee. He had failed conservative treatment and elected to proceed with a left total knee arthroplasty. HOSPITAL COURSE: On 04/10/18, the patient was admitted to [facility] and underwent a successful left total knee arthroplasty by Dr. Gutierrez. He recovered briefly in the postanesthesia care unit and was transferred to the short-stay surgical unit in stable condition. On postop day 0, the patient was consulted on by the hospitalist service for medical co-management of his diabetes and rheumatoid arthritis and hypertension. On postop day 1, the patient was having some nausea and pain. His pain was controlled with oral and IV pain medication. He was given medication for the nausea, which did seem to resolve the nausea fairly quickly. His INR was 1.1 with 6 mg of Coumadin previously. H and H was 13.7 and 43. Garrett catheter was removed on day 1 and he was able to void without any difficulty. He was also able to participate with physical therapy and ambulate a short distance with the use of a rolling walker. Postop day 2, the patient's pain was better controlled with medication. He had some intermittent nausea but also was improved, able to ambulate with use of a rolling walker, a little bit longer distance. His dressing was changed and his incision was found to be clean, dry, and intact. H and H was 14.5 and 44. INR was 2.97 with 8 mg of Coumadin previously. His Coumadin was then held that night. On postop day 3, the patient's dressing was changed. He was found to have some erythema surrounding the incision, which was questionable for an allergic reaction versus early cellulitis. He was given IV antibiotics. His pain was continued to be well controlled. H and H was stable at 13.1 and 39. His INR was supratherapeutic at 3.62; Coumadin continued to be held. Postop day 4, erythema was improving. The patient's pain was well controlled. INR was 2.76 and H and H was stable at 11.5 and 35. He was found stable for discharge home at that point. Throughout the hospital course, vital signs remained stable. DISCHARGE CONDITION: Stable. DISCHARGE DISPOSITION: Home. DISCHARGE INSTRUCTIONS: The patient will be weightbearing as tolerated with the use of a rolling walker. He will have visiting nurse services for home physical therapy and dressing changes. He may shower normally on postop day 4 and wash with soap and water. He will avoid bath tub, hot tub, or swimming pool. He will apply dry dressing as needed. He is understanding to call the office with any problems or concerns, go directly to the emergency room with any chest pain, shortness of breath, fever greater than 101, calf pain or swelling. DISCHARGE MEDICATIONS: The patient will have: 1. Percocet 5/325 one to two tabs p.o. q.4 to 6 hours p.r.n. pain. 2. Colace 100 mg p.o. b.i.d. p.r.n. constipation. 3. Coumadin, he will hold on 04/14/18, he will resume 4 mg on 04/15/18. He will have a redraw of his INR on 04/16/18. 4. He will also have Keflex 500 mg p.o. four times a day for 1 week. He will resume his home medications of: 1. Prednisone 3 mg p.o. b.i.d. 2. Simvastatin 40 mg p.o. q.a.m. 3. Omeprazole 20 mg p.o. q.a.m. 4. Lisinopril 5 mg p.o. q.a.m. 5. Gabapentin 300 mg p.o. t.i.d. 6. Insulin 7 units subcu q.a.m. 7. Enbrel 1 dose subcu q.a.m. 8. Dicyclomine 20 mg p.o. t.i.d. 9. Atenolol 25 mg p.o. b.i.d. 10. Metformin 1000 mg p.o. b.i.d. All of the patient's questions were answered. DEANN HUDSON [id number]/[facility] #: [id number] MTDD
== END 2018-04-14 15:00 | disposition home health service (06) | DRG 470 ==
LOC: AA 08:39 → SSU 16:28
PROVIDERS: ADMIT Orthopaedic Surgery Adult Reconstructive Orthopaedic Surgery; ATTEND Orthopaedic Surgery Adult Reconstructive Orthopaedic Surgery
PROC: 0SRC069 Replacement of Right Knee Joint with Oxidized Zirconium on Polyethylene Synthetic Substitute, Cemented, Open Approach (ICD-10-PCS; principal; 2018-04-10 11:00)
DX: M17.32 Unilateral post-traumatic osteoarthritis, left knee (principal); L03.116 Cellulitis of left lower limb; I10 Essential (primary) hypertension; M06.9 Rheumatoid arthritis, unspecified; F32.9 Major depressive disorder, single episode, unspecified; M25.462 Effusion, left knee; M21.062 Valgus deformity, not elsewhere classified, left knee; M21.061 Valgus deformity, not elsewhere classified, right knee; M81.0 Age-related osteoporosis without current pathological fracture; E11.40 Type 2 diabetes mellitus with diabetic neuropathy, unspecified; K58.9 Irritable bowel syndrome, unspecified; K21.9 Gastro-esophageal reflux disease without esophagitis; G89.29 Other chronic pain; E78.5 Hyperlipidemia, unspecified; G43.909 Migraine, unspecified, not intractable, without status migrainosus; M25.762 Osteophyte, left knee; R11.0 Nausea; T50.905A Adverse effect of unspecified drugs, medicaments and biological substances, initial encounter; Y92.239 Unspecified place in hospital as the place of occurrence of the external cause; Z79.52 Long term (current) use of systemic steroids; Z79.4 Long term (current) use of insulin; Z83.3 Family history of diabetes mellitus; Z82.49 Family history of ischemic heart disease and other diseases of the circulatory system; Z82.61 Family history of arthritis; Z80.0 Family history of malignant neoplasm of digestive organs; Z87.442 Personal history of urinary calculi; Z87.891 Personal history of nicotine dependence; Z86.14 Personal history of Methicillin resistant Staphylococcus aureus infection
CPT/HCPCS: 36415; 80048; 85014; 85018; 85049; 85610; 88305; 88311; A9270-GY; C1776; G8987-GO-CJ; G8988-GO-CI; J0330; J0690; J0780; J1170; J1200; J1240; J1650; J2175; J2250; J2270; J2405; J2704; J2765; J2795; J3010; J7512